=== PATIENT | male | born 1990 | race Caucasian/White ===

== ENCOUNTER → 2020-09-12 09:33 | Outpatient (BNVA) | payer OTHER, SELFPAY | PROVIDERS: PCP Physician Assistant; Visit Provider Surgery | DX: Z43.1 Encounter for attention to gastrostomy (principal); G82.50 Quadriplegia, unspecified | CPT/HCPCS: 43762; 43763; 99213 ==

== ENCOUNTER → 2020-10-27 14:09 | Outpatient (BNV) | payer OTHER, SELFPAY | PROVIDERS: PCP Physician Assistant; Visit Provider Internal Medicine | DX: D75.1 Secondary polycythemia (principal); Z86.711 Personal history of pulmonary embolism; Z79.01 Long term (current) use of anticoagulants | CPT/HCPCS: 99213; 99214 ==

== ENCOUNTER → 2020-10-30 12:52 | Outpatient (BNVA) | payer OTHER, SELFPAY | PROVIDERS: PCP Physician Assistant; Visit Provider Internal Medicine Pulmonary Disease | DX: D75.1 Secondary polycythemia (principal); R09.02 Hypoxemia; S06.9X0S Unspecified intracranial injury without loss of consciousness, sequela; V89.2XXS Person injured in unspecified motor-vehicle accident, traffic, sequela; Z87.891 Personal history of nicotine dependence | CPT/HCPCS: 99202 ==

== ENCOUNTER → 2020-12-01 13:07 | Outpatient (REF) | payer OTHER, SELFPAY ==
--- NOTE | 2020-12-01 13:10 | CA_ITS ---
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 Technically difficult study to interpret due to off axis views 2. Normal LV systolic and diastolic function 3. Normal cardiac valvular Doppler 4. Normal RV systolic pressure 5. No pericardial effusion Findings Left Ventricle Normal left ventricular size, thickness, and systolic function. The visually estimated ejection fraction is between 55-60%. Spectral Doppler is indicative of a normal filling pattern. Right Ventricle Normal right ventricular cavity size. Atria The left atrium is normal in size. Interatrial shunt cannot be excluded. The right atrium was not well visualized. Aortic Valve The aortic valve was not well visualized. There is no aortic valve stenosis. There is no aortic valve regurgitation. Mitral Valve Likely normal mitral valve structure and function. There is trace mitral valve regurgitation. There is no mitral valve stenosis. Pulmonic Valve The pulmonic valve was not well visualized. Tricuspid Valve Likely normal tricuspid valve structure and function. There is trace tricuspid valve regurgitation. The right ventricular systolic pressure is normal. The right ventricular systolic pressure is 21 mmHg. There is no evidence of pulmonary hypertension. Great Vessels All visible segments of the aorta are normal in size. The pulmonary artery was not well visualized. Venous The inferior vena cava was not well visualized. Pericardium/Pleural There is no evidence of pericardial effusion. Prior Study Comparison No prior study available for comparison. Measurements 2D Linear Measurements IVSd: 1.07 0.6-0.9/0.6-1.0 cm LVIDd: 4.44 3.9-5.3/4.2-5.9 cm LVIDd Index: 2.20 2.4-3.2/2.2-3.1 cm/m2 LVIDs: 3.20 2.0-3.6 cm LVPWd: 1.10 0.7-1.1 cm Ao Root: 3.40 2.1-3.5 cm LA Diam: 3.30 2.7-3.8/3.0-4.0 cm LAIDs Index: 1.63 1.5-2.3 cm/m2 LV Mass: 209.33 67-162/88-224 g LV Mass Index: 103.63 43-95/49-115 g/m2 LVOT Diam: 2.50 3.0+(-)1.3 cm 2D Systolic Function EF 4C: 55.80 >55% EF 2C: 51.00 >55% EF BiP: 56.50 >55% Mitral Valve MV Pk E: 0.57 MV PK A: 0.37 MV Decel Time: 127.00 E/A: 1.50 E'Lateral: 7.54 E'Medial: 4.35 E/E' Med: 13.10 E/E' Lat: 7.60 PHT: 37.00 MVA PHT: 5.95 Decel Mcdonald: 4.52 Aortic Valve AoV Pk Isaias: 0.85 AoV Mn Isaias: 0.56 AoV VTI: 0.19 AoV Pk Grad: 3.00 Aov Mn Grad: 2.00 ALVA Cont.VTI: 2.93 LVOT LVOT Pk Isaias: 0.56 LVOT Mn Isaias: 0.37 LVOT VTI: 0.11 LVOT Pk Grad: 1.00 LVOT Mn Grad: 1.00 LVOT Diam: 2.50 LVOT Area: 4.91 Diastolic Function MV Pk E: 0.57 MV Pk A: 0.37 E/A: 1.50 E'Medial: 4.35 E/E' Med: 13.10 E' Laterial: 7.54 E/E' Lat: 7.60 Tricuspid Valve TR Pk Isaias: 2.10 TR Pk Grad: 18.00 RA Press: 3.00 RVSP: 21.00 Great Vessels Aorta Ao Root-2D: 3.40 2.0-3.7 cm Ao Asc: 3.30 2.1-3.4 cm Pulmonary Valve PV Pk Isaias: 0.87 Peak PV Grad: 3.00 Updated in Other Vendor System with Status of Final Kev Murphy MD electronically signed on 12/01/2020 6:06:06 PM with status of Final
--- NOTE | 2020-12-01 13:58 | XR_ITS ---
EXAMINATION: XR CHEST CLINICAL INFORMATION: Difficulty breathing. COMPARISON: None TECHNIQUE: 2 views of the chest were obtained. FINDINGS: The lungs are in moderate inspiration with increased bilateral parahilar markings and lingular atelectasis. Visualized bones and soft tissues are normal. XR/XR chest 2V IMPRESSION: Increased bilateral parahilar interstitial markings likely interstitial pneumonitis. There is lingular atelectasis.
--- NOTE | 2020-12-01 13:58 | NM_ITS ---
EXAMINATION: PULMONARY QUANTITATIVE PERFUSION STUDY CLINICAL INFORMATION: Secondary polycythemia.. COMPARISON: No previous lung scan is available for comparison. Radiographs of the chest dated 12/01/2020, the same date as this lung scan, are available for comparison.. TECHNIQUE: Following the intravenous injection of 4.0 mCi Tc-99m MAA intravenously an 8-view perfusion study was performed. Differential counts were obtained from the anterior and posterior views, and a combined image using the geometric mean was generated. The percentage relative activity of each lung as well as the relative activity within the upper, mid and lower lung parsons are was calculated. FINDINGS: No segmental perfusion defects are present. There is homogeneous distribution of activity in both lungs with no focal or anatomic appearing perfusion defects present.. In addition to calculating the relative percentage in each lung on the geometric mean of the anterior and posterior perfusion images, the relative activity in the upper, mid, and lower lung parsons was determined using horizontal lines these lung parsons approximately equally. On the perfusion images, the total activity is: Left lung 49% and right lung 51%. LEFT: Upper lung field 13%. Mid lung field 24%. Lower lung field 12% RIGHT: Upper lung field 14%. Mid lung field 28% Lower lung field 9%. NM/NM pul perf carlos dif w image IMPRESSION: Normal radionuclide perfusion scan. Quantitation is as above.
== END ==
LOC: HO.CARD 13:07
PROVIDERS: PCP Physician Assistant; Visit Provider Internal Medicine Pulmonary Disease
DX: D75.1 Secondary polycythemia (principal); R06.00 Dyspnea, unspecified
CPT/HCPCS: 71046; 78597; 93306; A9540

== ENCOUNTER → 2020-12-05 10:09 | Outpatient (BNVA) | payer OTHER, SELFPAY | PROVIDERS: PCP Physician Assistant; Referring Provider Physician Assistant; Visit Provider Surgery | DX: K94.23 Gastrostomy malfunction (principal) | CPT/HCPCS: 43762; 99212 ==

== ENCOUNTER → 2020-12-09 14:57 | Outpatient (BNVA) | payer OTHER, SELFPAY | PROVIDERS: PCP Physician Assistant; Visit Provider Internal Medicine Pulmonary Disease | DX: D75.1 Secondary polycythemia (principal) | CPT/HCPCS: 99212 ==

== ENCOUNTER → 2021-03-03 10:46 | Outpatient (BNVA) | payer OTHER, SELFPAY | PROVIDERS: PCP Physician Assistant; Visit Provider Surgery | DX: K94.23 Gastrostomy malfunction (principal) | CPT/HCPCS: 43762; 99212 ==

== ENCOUNTER → 2021-06-05 14:57 | Outpatient (BNVA) | payer OTHER, SELFPAY | PROVIDERS: PCP Physician Assistant; Visit Provider Surgery | DX: K94.23 Gastrostomy malfunction (principal) | CPT/HCPCS: 43762; 99212 ==

== ENCOUNTER → 2021-09-04 14:48 | Outpatient (BNVA) | payer OTHER, SELFPAY | PROVIDERS: PCP Physician Assistant; Visit Provider Internal Medicine Pulmonary Disease | DX: R06.83 Snoring (principal); R09.89 Other specified symptoms and signs involving the circulatory and respiratory systems | CPT/HCPCS: 99212 ==

== ENCOUNTER → 2021-10-06 15:22 | Outpatient (REF) | payer OTHER, SELFPAY | LOC: HO.SL 15:22 | PROVIDERS: PCP Physician Assistant; Visit Provider Internal Medicine Pulmonary Disease | DX: R06.83 Snoring (principal) | CPT/HCPCS: 95806 ==

== ENCOUNTER → 2021-10-30 10:54 | Outpatient (BNVA) | payer OTHER, SELFPAY | PROVIDERS: PCP Physician Assistant; Referring Provider Physician Assistant; Visit Provider Surgery | DX: K94.23 Gastrostomy malfunction (principal) | CPT/HCPCS: 43762; 99212 ==

== ENCOUNTER → 2021-11-05 14:18 | Outpatient (BNVA) | payer OTHER, SELFPAY | PROVIDERS: PCP Physician Assistant; Visit Provider Internal Medicine Pulmonary Disease | DX: G47.33 Obstructive sleep apnea (adult) (pediatric) (principal) | CPT/HCPCS: 99212 ==

== ENCOUNTER → 2022-01-28 11:34 | Outpatient (BNVA) | payer OTHER, SELFPAY | PROVIDERS: PCP Physician Assistant; Visit Provider Surgery | DX: K94.23 Gastrostomy malfunction (principal) | CPT/HCPCS: 43762; 99212 ==

== ENCOUNTER → 2022-04-27 14:37 | Outpatient (BNVA) | payer OTHER, SELFPAY | PROVIDERS: PCP Physician Assistant; Visit Provider Internal Medicine Pulmonary Disease | DX: G47.33 Obstructive sleep apnea (adult) (pediatric) (principal) | CPT/HCPCS: 99212 ==

== ENCOUNTER → 2022-04-30 11:23 | Outpatient (BNVA) | payer OTHER, SELFPAY | PROVIDERS: PCP Physician Assistant; Referring Provider Physician Assistant; Visit Provider Surgery | DX: K94.23 Gastrostomy malfunction (principal) | CPT/HCPCS: 43762; 99212 ==

== ENCOUNTER → 2022-08-17 15:41 | Outpatient (BNVA) | payer OTHER, SELFPAY | PROVIDERS: PCP Physician Assistant; Visit Provider Surgery | DX: K94.23 Gastrostomy malfunction (principal) | CPT/HCPCS: 43762; 99212 ==

== ENCOUNTER → 2022-11-04 14:55 | Outpatient (BNVA) | payer OTHER, SELFPAY | PROVIDERS: PCP Physician Assistant; Referring Provider Physician Assistant; Visit Provider Surgery | DX: K94.23 Gastrostomy malfunction (principal); G82.50 Quadriplegia, unspecified | CPT/HCPCS: 43762; 99212 ==

== ENCOUNTER → 2023-02-03 15:03 | Outpatient (BNVA) | payer OTHER, SELFPAY | PROVIDERS: PCP Physician Assistant; Visit Provider Surgery | DX: K94.23 Gastrostomy malfunction (principal) | CPT/HCPCS: 43762; 99212 ==

== ENCOUNTER → 2023-04-28 14:36 | Outpatient (BNVA) | payer OTHER, SELFPAY | PROVIDERS: PCP Physician Assistant; Visit Provider Surgery | DX: K94.23 Gastrostomy malfunction (principal) | CPT/HCPCS: 43762; 99212 ==

== ENCOUNTER 2023-07-28 15:08 | Outpatient (AMB) | payer OTHER, SELFPAY ==
[2023-07-28 15:18] VITALS: BP 136/84; PULSE 80; BMI 34.0
--- NOTE | 2023-07-28 15:18 | MHC.OFFVIS ---
Intake Vital Signs 07/28/23 15:18 Height 5 ft 9 in Weight 230 lb BMI 34.0 BP 136/84 Blood Pressure Location Lt brachial Position Sitting Pulse 80 Intake Visit Reasons: G-tube change 18F Intake Note: Patient here for G-tube change. [employer] Utility Supervisor Required: No Accompanied by: siblings Allergies latex [LATEX] Allergy (Intermediate, Verified 07/28/23 15:28) HIVES strawberry [STRAWBERRY] Allergy (Intermediate, Verified 07/28/23 15:28) HIVES Medication List - Last Reconciled 08/01/23 by Souleymane Roberts MD [adult diapers As directed] albuterol sulfate 2.5 mg (3 mL) inhalation .4 times a day PRN 90 days amantadine HCl 200 mg (20 mL) PO BID 30 days azithromycin For 250 mg dose pack: take 500 mg today (day 1), then 250 mg for 4 days (days 2-5) PO disposable gloves As directed [incontinence wipes As directed] ketoconazole 2% 1 appl topical DAILY 15 days lactose-reduced food with fibr 0.07 gram-1.5 kcal/mL (Isosource 1.5 Matthew) 1 ea feeding tube DAILY 30 days levetiracetam 750 mg PO DAILY PRN methylphenidate HCl 1 mg PO BID miscellaneous medical supply 1 ea miscellaneous .PRN 99 days miscellaneous medical supply 1 ea miscellaneous BID 30 days miscellaneous medical supply 1 ea miscellaneous QID 30 days miscellaneous medical supply 1 ea miscellaneous DAILY 99 days miscellaneous medical supply 1 ea miscellaneous .nightly 90 days miscellaneous medical supply 1 ea miscellaneous QID 30 days nebulizer and compressor (Portable Nebulizer System) As directed rivaroxaban (Xarelto) 10 mg PO DAILY 90 days underpads (Goodnites Bed Mats) As directed HPI HPI Comments History of Present Illness Details Kike Matson returns to the office for G-tube change.? The tube is been functioning well with no apparent skin changes. No leakage is been identified. [facility] Medical History Neurogenic bladder Asthma Quadriparesis TBI (traumatic brain injury) History of pulmonary embolism Surgical History History of gastrostomy (06/02/20) History of throat surgery (02/2019) History of brain surgery Family History Mother Interstitial lung disease Social History Household Members: Family Housing: House Alcohol intake: never Patient Tobacco Use Status: Former Tobacco user e-Cigarette/Vaping Use: Never Used Second Hand Smoke Exposure: Yes service: No Current occupational status: disabled Cognitive needs: No Hearing needs: No Vision needs: No Review of Systems Const Unobtainable due to mental status Physical Exam Vital Signs: Last Vital Signs Pulse 80 07/28/23 15:18 BP 136/84 07/28/23 15:18 BMI result Body Mass Index 34.0 Resp Other: breathing comfortably on room air GI Other: soft, nondistended, nontender, gastrostomy tube in the left upper quadrant. No granulation tissue noted surrounding the tube, the surrounding skin is clean and intact. Inspection: Yes G-tube present Skin Other: Warm and dry, no rash Neuro Other: quadriplegia Extrem Other: quadriplegia General: Yes normal to inspection Office Procedures Office Procedure Misc Details: Preoperative diagnosis: Gastrostomy tube in place, quadriplegia Postoperative diagnosis: Same Procedure: Gastrostomy tube change Surgeon: Souleymane Roberts MD Bottom Liquor Attendant: None Anesthesia: None Indications for procedure: 33-year-old male patient with a longstanding gastrostomy tube returning for gastrostomy tube change. Patient has a prior history of tube dysfunction. Operative findings: Gastrostomy tube easily replaced. Specimen: None Estimated blood loss: None Complications: None Procedure details: Patient was placed in a sitting position. The previously placed 18 Niuean gastrostomy feeding tube was removed after deflating the balloon. Approximately 6 mL of balloon fluid was aspirated. A new 18 Niuean gastrostomy tube was replaced and easily inserted through the gastrostomy site. Gastric contents in tube feeds were medially evacuated from the tube confirming proper location of the tube. Balloon was inflated with 10 mL of saline solution. Sterile dressings were then applied. The patient tolerated the procedure well and was discharged to home in stable condition. Office Procedure Billing Code: AMB Procedure Billing Code (58097) Assessment & Plan Assessment & Plan (1) Malfunction of gastrostomy tube: Code(s): K94.23 - Gastrostomy malfunction Plan: Patient returns for G-tube placement. The previous G-tube was removed after deflating the balloon and a new 18 Niuean nell G-tube was reinserted immediately. The tube was easily inserted and the balloon inflated with 10 cc of sterile water. Sterile dressings were then applied. The patient tolerated the procedure well and was discharged to home in stable condition. He will follow up in 3 months for tube change. Coding Level of Care Code Procedure Only Diagnoses Malfunction of gastrostomy tube K94.23 CPT Codes Office Procedure - Office Procedure Billing Code: AMB Procedure Billing Code ([id number])
== END 2023-07-28 15:30 | disposition home or self-care (01) ==
PROVIDERS: PCP Physician Assistant; Visit Provider Surgery
DX: K94.23 Gastrostomy malfunction (principal)
CPT/HCPCS: 43762

== ENCOUNTER → 2023-07-28 15:08 | Outpatient (BNVA) | payer OTHER, SELFPAY | PROVIDERS: PCP Physician Assistant; Visit Provider Surgery | DX: K94.23 Gastrostomy malfunction (principal) | CPT/HCPCS: 43762 ==

== ENCOUNTER 2023-09-07 15:25 | Outpatient (AMB) | payer OTHER, SELFPAY ==
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
[2023-09-07 15:33] VITALS: BP 130/80; PULSE 82; O2SAT 98
== END 2023-09-07 16:08 | disposition home or self-care (01) ==
PROVIDERS: Visit Provider Physician Assistant
DX: Z23 Encounter for immunization (principal)
CPT/HCPCS: 90471; 90686; 99395

== ENCOUNTER 2023-09-07 16:17 | Outpatient (REF) | payer OTHER, SELFPAY ==
[2023-09-07 17:08] LABS: Hematocrit 51.4 % (42.0-52.0); Mean Corpuscular HGB Conc 33.1 g/dl (31.0-36.0); Mean Corpuscular Hemoglobin 32.9 pg (27.0-33.0); Mean Corpuscular Volume 99.6 fL (80.0-98.0); Mean Platelet Volume 12.6 fL (9.4-12.4); Platelet Count 163 X10*3/uL (160-400); Red Blood Count 5.16 X10*6/uL (4.60-5.80); Red Cell Distribution Width 12.2 % (11.0-16.0)
[2023-09-07 17:28] LABS: Alanine Aminotransferase 34 U/L (0-40); Albumin Level 4.1 g/dL (3.5-5.0); Alkaline Phosphatase 97 U/L (39-117); Anion Gap 15 (12-20); Aspartate Amino Transferase 27 U/L (5-37); Bilirubin Total 0.5 mg/dL (0.0-1.0); Blood Urea Nitrogen 10 mg/dL (9-16); Calcium 9.7 mg/dL (8.4-10.2); Carbon Dioxide 28 mmol/L (22-29); Chloride 102 mmol/L (96-108); Estimated Glomerular Filt Rate > 60; Glucose Random 86 mg/dL (60-115); Potassium 3.9 mmol/L (3.3-5.1); Sodium 141 mmol/L (135-145); Total Protein 7.4 g/dL (6.5-8.0)
== END 2023-09-07 16:18 | disposition home or self-care (01) ==
LOC: HO.LAB 16:17
PROVIDERS: PCP Physician Assistant; Visit Provider Physician Assistant
DX: D75.1 Secondary polycythemia (principal); R74.8 Abnormal levels of other serum enzymes; Z13.1 Encounter for screening for diabetes mellitus
CPT/HCPCS: 36415; 80053; 85027

== ENCOUNTER 2023-10-27 15:16 | Outpatient (AMB) | payer OTHER, SELFPAY ==
--- NOTE | 2023-10-27 15:23 | A.OFFVIS_ITS ---
Intake Vital Signs 10/27/23 15:30 Height 5 ft 9 in Weight 229 lb 4.492 oz BMI 33.9 BP not taken reason Medical Reason Intake Visit Reasons: 3 mth follow up -G-tube change 18F Intake Note: Patient is seen in office for office procedure, G tube change 18 F. Pt c/o: no changes since last visit Child Support Agent Required: No Accompanied by: Family/Other Allergies latex [LATEX] Allergy (Intermediate, Verified 10/27/23 15:31) HIVES strawberry [STRAWBERRY] Allergy (Intermediate, Verified 10/27/23 15:31) HIVES Medication List - Last Reconciled 10/27/23 by Souleymane Roberts MD [adult diapers As directed] albuterol sulfate 2.5 mg (3 mL) inhalation .4 times a day PRN 90 days amantadine HCl 200 mg (20 mL) PO BID 30 days azithromycin 500 mg PO DAILY 10 days disposable gloves As directed [incontinence wipes As directed] ketoconazole 2% 1 appl topical DAILY 15 days lactose-reduced food with fibr 0.07 gram-1.5 kcal/mL (Isosource 1.5 Matthew) 1 ea feeding tube DAILY 30 days levetiracetam 750 mg PO DAILY PRN methylphenidate HCl 1 mg PO BID miscellaneous medical supply 1 ea miscellaneous .PRN 99 days miscellaneous medical supply 1 ea miscellaneous BID 30 days miscellaneous medical supply 1 ea miscellaneous QID 30 days miscellaneous medical supply 1 ea miscellaneous DAILY 99 days miscellaneous medical supply 1 ea miscellaneous .nightly 90 days miscellaneous medical supply 1 ea miscellaneous QID 30 days nebulizer and compressor (Portable Nebulizer System) As directed Portable Suction Machine w/tubing,canister&filter (Suction machine w/tubing, canister and filter) As directed rivaroxaban (Xarelto) 10 mg PO DAILY 90 days underpads (Goodnites Bed Mats) As directed HPI HPI Comments History of Present Illness Details Kike Matson returns to the office for G-tube change.? The tube is been functioning well with no apparent skin changes. No leakage is been identified. [facility] Medical History Neurogenic bladder Asthma Quadriparesis TBI (traumatic brain injury) History of pulmonary embolism Surgical History History of gastrostomy (06/02/20) History of throat surgery (02/2019) History of brain surgery Family History Mother Interstitial lung disease Father Esophageal cancer DMII (diabetes mellitus, type 2) Social History Household Members: Family Housing: House Alcohol intake: never Patient Tobacco Use Status: Former Tobacco user e-Cigarette/Vaping Use: Never Used Second Hand Smoke Exposure: Yes service: No Current occupational status: disabled Cognitive needs: No Hearing needs: No Vision needs: No Review of Systems Const Unobtainable due to mental condition Physical Exam Vital Signs: BMI result Body Mass Index 33.9 Resp Other: breathing comfortably on room air GI Other: soft, nondistended, nontender, gastrostomy tube in the left upper quadrant. No granulation tissue noted surrounding the tube, the surrounding skin is clean and intact. The previous G-tube was removed and a new 18 Lithuanian gastrostomy tube inserted immediately. A balloon was filled with 10 mL of saline solution. Sterile dressings were then applied. The patient tolerated the G-tube Inspection: Yes G-tube present Skin Other: Warm and dry, no rash Neuro Other: quadriplegia Extrem Other: quadriplegia General: Yes normal to inspection Assessment & Plan Assessment & Plan (1) Malfunction of gastrostomy tube: Code(s): K94.23 - Gastrostomy malfunction Plan: Patient returns for G-tube placement. The previous G-tube was removed after deflating the balloon and a new 18 Lithuanian nell G-tube was reinserted immediately. The tube was easily inserted and the balloon inflated with 10 cc of sterile water. Sterile dressings were then applied. The patient tolerated the procedure well and was discharged to home in stable condition. He will follow up in 3 months for tube change. Coding Level of Care Code Est Pt Level 3 (40360) Diagnoses Malfunction of gastrostomy tube K94.23
[2023-10-27 15:30] VITALS: BMI 33.9
== END 2023-10-27 15:33 | disposition home or self-care (01) ==
PROVIDERS: PCP Physician Assistant; Visit Provider Surgery
DX: K94.23 Gastrostomy malfunction (principal)
CPT/HCPCS: 43762

== ENCOUNTER → 2023-10-27 15:16 | Outpatient (BNVA) | payer OTHER, SELFPAY | PROVIDERS: PCP Physician Assistant; Visit Provider Surgery | DX: K94.23 Gastrostomy malfunction (principal); Z96.89 Presence of other specified functional implants | CPT/HCPCS: 43762 ==

== ENCOUNTER 2024-01-23 10:18 | Outpatient (AMB) | payer OTHER, SELFPAY ==
[2024-01-23 10:28] VITALS: BP 132/90; PULSE 65; O2SAT 97
--- NOTE | 2024-01-23 10:28 | A.OFFPC_ITS ---
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 Accompanied by: Family/Other Allergies latex [LATEX] Allergy (Intermediate, Verified 01/23/24 10:37) HIVES strawberry [STRAWBERRY] Allergy (Intermediate, Verified 01/23/24 10:37) HIVES Medication List - Last Reconciled 01/23/24 by Martir Espino PA-C [adult diapers As directed] albuterol sulfate 2.5 mg (3 mL) inhalation .4 times a day PRN 90 days amantadine HCl 200 mg (20 mL) PO BID 30 days azithromycin 500 mg PO DAILY 10 days disposable gloves As directed [incontinence wipes As directed] ketoconazole 2% 1 appl topical DAILY 15 days lactose-reduced food with fibr 0.07 gram-1.5 kcal/mL (Isosource 1.5 Matthew) 1 ea feeding tube DAILY 30 days levetiracetam 750 mg PO DAILY PRN methylphenidate HCl 1 mg PO BID miscellaneous medical supply 1 ea miscellaneous .PRN 99 days miscellaneous medical supply 1 ea miscellaneous BID 30 days miscellaneous medical supply 1 ea miscellaneous QID 30 days miscellaneous medical supply 1 ea miscellaneous DAILY 99 days miscellaneous medical supply 1 ea miscellaneous .nightly 90 days miscellaneous medical supply 1 ea miscellaneous QID 30 days nebulizer and compressor (Portable Nebulizer System) As directed Portable Suction Machine w/tubing,canister&filter (Suction machine w/tubing, canister and filter) As directed rivaroxaban (Xarelto) 10 mg PO DAILY 90 days underpads (Goodnites Bed Mats) As directed Tobacco use date assessed: 09/07/23 HPI Valle, seizure, pnemonia HPI Details Kike is a 33-year-old male here today for a hospital discharge follow-up. ? 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 Recently admitted to [facility] for a witnessed grand mal seizure in the setting of an upper respiratory infection and hypoglycemia. CT of head was not concerning. He did receive Keppra load while in the hospital a [address] of chest did show an infiltrate in the right lung. Unclear etiology to patient's infection though seems to started upper respiratory secretions. Currently doing well and now home. [facility] Medical History Neurogenic bladder Asthma Quadriparesis TBI (traumatic brain injury) History of pulmonary embolism Surgical History History of gastrostomy (06/02/20) History of throat surgery (02/2019) History of brain surgery Family History Mother Interstitial lung disease Father Esophageal cancer DMII (diabetes mellitus, type 2) Social History Household Members: Family Housing: House Alcohol intake: never Patient Tobacco Use Status: Former Tobacco user e-Cigarette/Vaping Use: Never Used Second Hand Smoke Exposure: Yes service: No Current occupational status: disabled Cognitive needs: No Hearing needs: No Vision needs: No Questionnaire PHQ-9 Over the last 2 weeks, how often have you been bothered by any of the following problems? 1. Little interest or pleasure in doing things: not at all 2. Feeling down, depressed, or hopeless: not at all 3. Trouble falling or staying asleep, or sleeping too much: not at all 4. Feeling tired or having little energy: not at all 5. Poor appetite or overeating: not at all 6. Feeling bad about yourself - or that you are a failure or have let yourself or your family down: not at all 7. Trouble concentrating on things, such as reading the newspaper or watching television: not at all 8. Moving or speaking so slowly that other people could have noticed. Or the opposite - being so fidgety or restless that you have been moving around a lot more than usual: not at all 9. Thoughts that you would be better off or of hurting yourself in some way: not at all Total score: 0 Depression Screening Interpretation: Negative Depression Screening Done: Yes [id number] - PHQ-9 Billing: Yes Source: Developed by Drs. Josué Amin, Lala Bah, Delio Samuel and colleagues, with an educational eduin from [employer]. Thrive Questionnaire Date Thrive assessed: 01/23/24 I am a: Parent/Caregiver What is your living situation today?: I have a steady place to live Within the past 12 months, did the food you bought not last and you didn't have the money to get more?: Never true Within the past 12 months, did you worry whether your food would run out before you got money to buy more?: Never true Do you have trouble paying for medicines?: No Do you have trouble getting transportation to medical appointments?: No Do you have trouble paying your heating and electricity bill?: No Do you have trouble taking care of your child, family member or friend?: No Do you have trouble with day-to-day activities such as bathing, preparing meals, shopping, managing finances, etc.?: No Are you currently unemployed and looking for a job?: No Are you interested in more education?: No Please select the resources that you would like help with: None Currently or been in a relationship where the following occur: no concerns reported THRIVE Score: 0 OMAR-7 AMB Questionnaire OMAR-7 Date OMAR - 7 assessed: 02/17/22 Source: Developed by Drs. Josué Amin, Lala Bah, Delio Samuel and colleagues, with an educational eduin from [employer]. Review of Systems Const Denies headache(s) Eyes Denies loss of vision ENT Denies vertigo, Denies dizziness, Denies headache(s) and Denies sore throat Card Denies chest pain, Denies leg edema and Denies lightheadedness Resp Denies cough, Denies hemoptysis and Denies wheezing GI Denies abdominal pain, Denies melena, Denies constipation, Denies diarrhea and Denies vomiting Denies dysuria, Denies urinary frequency and Denies urinary urgency Musc Denies arthralgias, Denies joint swelling, Denies numbness and Denies tingling Neuro Denies Abnormal speech present, Denies behavioral changes, Denies vertigo, Denies dizziness, Denies headache(s), Denies loss of vision, Denies memory loss, Denies numbness and Denies tingling Psych Denies anxiety, Denies behavioral changes, Denies depression, Denies memory loss and Denies panic attacks Caio/Lymph Denies easy bleeding and Denies easy bruising Aller/Immun Denies wheezing Physical exam (Primary Care) Vital Signs: Last Vital Signs Pulse 65 01/23/24 10:28 BP 132/90 H 01/23/24 10:28 Pulse Ox 97 01/23/24 10:28 Oxygen Delivery Method Room Air 01/23/24 10:28 Tobacco/Smoking Status: Tobacco use Status Tobacco use date assessed 09/07/23 01/23/24 10:30 Patient Tobacco Use Status Former Tobacco user 01/23/24 10:30 e-Cigarette/Vaping Use Never Used 01/23/24 10:30 PHQ-9: PHQ-9 Score PHQ-9: Total score 0 01/23/24 10:36 Depression Screening Interpretation: Negative Thrive Assessment: Date of Thrive Assessment Date Thrive assessed 02/17/22 01/23/24 10:30 Currently or been in a relationship where the following occur: no concerns reported Const General: healthy appearing, no acute distress, alert and awake Nutritional Appearance: well nourished Orientation/consciousness: oriented to person, oriented to place and oriented to time HENMT Ears: TM's normal bilaterally General nose exam: Normal nasal mucous membranes and turbinates present Eyes Conjunctivae: conjunctivae normal Sclerae: sclerae normal Pupils: Equal, round and reactive pupils present Neck Neck: Yes no lymphadenopathy and Yes no JVD Thyroid: Thyroid normal Carotids: no bruits Resp Other: NOTED UPPER RESPIRATORY GURGLING Effort & Inspection: normal respiratory effort and not tachypneic Auscultation: no crackles, no rales, no rhonchi and no wheezes Cardio Rate: regular rate Rhythm: regular rhythm Heart sounds: no murmurs and normal S1 and S2 GI Palpation (GI): Soft to palpation, nontender, no hepatomegaly and no splenomegaly Auscultation: normal bowel sounds Skin General skin exam: no rashes or lesions noted and dry skin Neuro General: oriented to person, oriented to place and oriented to time Cranial nerves: Yes Equal, round and reactive pupils present Speech: No Abnormal speech present Gait exam (Neuro): Normal gait present Motor exam (neuro): no tremor noted Extrem Right upper extremity: full ROM Left upper extremity: full ROM Right lower extremity: full ROM; no edema Left lower extremity: full ROM; no edema Psych Mental Status: mental status grossly normal Speech and movement: Normal speech and movement present Affect: normal affect Attitude: cooperative Thought process: Normal thought process present Assessment and Plan Assessment & Plan (1) Hospital discharge follow-up: Code(s): Z09 - Encounter for follow-up examination after completed treatment for conditions other than malignant neoplasm (2) Aspiration pneumonia: Code(s): J69.0 - Pneumonitis due to inhalation of food and vomit Qualifiers: Laterality: right Lung location: lower lobe of lung Aspiration p neumonia type: unspecified Qualified Code(s): J69.0 - Pneumonitis due to inhalation of food and vomit (3) Seizure disorder: Code(s): G40.909 - Epilepsy, unspecified, not intractable, without status epilepticus Plan: Had a seizure while at home in the setting of upper respiratory infection. He did get low-dose of Keppra 1000 mg while hospital. Also found have hypoglycemia. Since discharge no further seizure episodes. Patient will follow-up with his neurologist. His Keppra was return back to his home dose of 750 mg Orders: Orders Levetiracetam Keppra Today S06.9X9D - Unspecified intracranial injury with loss of consciousness of unspecified duration, subsequent encounter Basic Metabolic Panel Today Z13.1 - Encounter for screening for diabetes mellitus Complete Blood Count no Diff Today D75.1 - Secondary polycythemia Coding Level of Care Code Est Pt Level 4 (61515) Diagnoses Hospital discharge follow-up Z09 Aspiration pneumonia of right lower lobe, unspecified aspiration pneumonia type J69.0 Laterality: right Lung location: lower lobe of lung Aspiration pneumonia type: unspecified Seizure disorder G40.909
== END 2024-01-23 10:59 | disposition home or self-care (01) ==
PROVIDERS: PCP Physician Assistant; Visit Provider Physician Assistant
DX: Z09 Encounter for follow-up examination after completed treatment for conditions other than malignant neoplasm (principal); J69.0 Pneumonitis due to inhalation of food and vomit; G40.909 Epilepsy, unspecified, not intractable, without status epilepticus
CPT/HCPCS: 99214

== ENCOUNTER 2024-01-26 15:23 | Outpatient (AMB) | payer OTHER, SELFPAY ==
--- NOTE | 2024-01-26 15:25 | A.OFFVIS_ITS ---
Intake Vital Signs 01/26/24 15:35 Height 5 ft 9 in Weight 229 lb 4.492 oz BMI 33.9 BP not taken reason Medical Reason Intake Visit Reasons: 3 mth follow up -G-tube change 18F Intake Note: Patient is seen in office for office procedure, G tube change 18 F. Pt c/o: here for tube change, was hospitalized for almost a week due to pneumonia and was on antbx is better now. Resident In Diagnostic Radiology Required: No Accompanied by: Family/Other Allergies latex [LATEX] Allergy (Intermediate, Verified 01/26/24 15:37) HIVES strawberry [STRAWBERRY] Allergy (Intermediate, Verified 01/26/24 15:37) HIVES HPI HPI Comments History of Present Illness Details Kike Matson returns to the office for G-tube change.? The tube is been functioning well with no apparent skin changes. No leakage is been identified. He was recently hospitalized for pneumonia, felt to be due to his oral secretions. He is improved today. [facility] Medical History Neurogenic bladder Asthma Quadriparesis TBI (traumatic brain injury) History of pulmonary embolism Surgical History History of gastrostomy (06/02/20) History of throat surgery (02/2019) History of brain surgery Family History Mother Interstitial lung disease Father Esophageal cancer DMII (diabetes mellitus, type 2) Social History Household Members: Family Housing: House Alcohol intake: never Patient Tobacco Use Status: Former Tobacco user e-Cigarette/Vaping Use: Never Used Second Hand Smoke Exposure: Yes service: No Current occupational status: disabled Cognitive needs: No Hearing needs: No Vision needs: No Review of Systems Const Unobtainable due to mental condition Physical Exam Vital Signs: BMI result Body Mass Index 33.9 Resp Other: breathing comfortably on room air GI Other: soft, nondistended, nontender, gastrostomy tube in the left upper quadrant. No granulation tissue noted surrounding the tube, the surrounding skin is clean and intact. The previous G-tube was removed and a new 18 Lao gastrostomy tube inserted immediately. A balloon was filled with 10 mL of saline solution. Sterile dressings were then applied. The patient tolerated the G-tube Inspection: Yes G-tube present Skin Other: Warm and dry, no rash Neuro Other: quadriplegia Extrem Other: quadriplegia General: Yes normal to inspection Assessment & Plan Assessment & Plan (1) Malfunction of gastrostomy tube: Code(s): K94.23 - Gastrostomy malfunction Plan: Patient returns for G-tube placement. The previous G-tube was removed after deflating the balloon and a new 18 Lao nell G-tube was reinserted immediately. The tube was easily inserted and the balloon inflated with 10 cc of sterile water. Sterile dressings were then applied. The patient tolerated the procedure well and was discharged to home in stable condition. He will follow up in 3 months for tube change. Coding Level of Care Code Est Pt Level 3 (93518) Diagnoses Malfunction of gastrostomy tube K94.23
[2024-01-26 15:35] VITALS: BMI 33.9
== END 2024-01-26 15:37 | disposition home or self-care (01) ==
PROVIDERS: PCP Physician Assistant; Visit Provider Surgery
DX: Z46.59 Encounter for fitting and adjustment of other gastrointestinal appliance and device (principal)
CPT/HCPCS: 43762; 99213

== ENCOUNTER → 2024-01-26 15:23 | Outpatient (BNVA) | payer OTHER, SELFPAY | PROVIDERS: PCP Physician Assistant; Visit Provider Surgery | DX: K94.23 Gastrostomy malfunction (principal) | CPT/HCPCS: 43762; 99212 ==

== ENCOUNTER 2024-02-01 14:46 | Outpatient (REF) | payer OTHER, SELFPAY ==
[2024-02-01 15:35] LABS: Hemoglobin 16.7 g/dl (14.0-18.0); Mean Corpuscular HGB Conc 34.1 g/dl (31.0-36.0); Mean Corpuscular Hemoglobin 33.7 pg (27.0-33.0); Mean Platelet Volume 11.8 fL (9.4-12.4); Platelet Count 269 X10*3/uL (160-400); Red Blood Count 4.95 X10*6/uL (4.60-5.80); Red Cell Distribution Width 14.6 % (11.0-16.0); White Blood Count 4.4 X10*3/uL (4.8-10.8)
[2024-02-01 15:38] LABS: Prothrombin Time 11.8 SEC (11.1-13.3)
[2024-02-01 16:07] LABS: Ammonia 42 umol/L (13-55)
[2024-02-01 16:08] LABS: Alanine Aminotransferase 59 U/L (0-40); Alkaline Phosphatase 148 U/L (39-117); Anion Gap 12 (12-20); Aspartate Amino Transferase 39 U/L (5-37); Bilirubin Total 0.3 mg/dL (0.0-1.0); Blood Urea Nitrogen 8 mg/dL (9-16); Calcium 9.7 mg/dL (8.4-10.2); Carbon Dioxide 30 mmol/L (22-29); Chloride 100 mmol/L (96-108); Cholesterol 121 mg/dL (<200); Estimated Glomerular Filt Rate > 60; Glucose Fasting 105 mg/dL (60-99); Glucose Random 105 mg/dL (60-115); HDL Cholesterol 36 mg/dL (>40); LDL Cholesterol Calculated 31 mg/dL (<100); Potassium 3.9 mmol/L (3.3-5.1); Sodium 138 mmol/L (135-145); Triglycerides 270 mg/dL (<150)
[2024-02-01 16:24] LABS: TSH reflex Free T4 1.81 uIU/mL (0.32-4.0)
[2024-02-04 17:53] LABS: Levetiracetam Keppra 3.8 mcg/mL (6.0-46.0)
== END 2024-02-01 14:47 | disposition home or self-care (01) ==
LOC: HO.LAB 14:46
PROVIDERS: PCP Physician Assistant; Visit Provider Physician Assistant
DX: S06.9X9D Unspecified intracranial injury with loss of consciousness of unspecified duration, subsequent encounter (principal); I26.99 Other pulmonary embolism without acute cor pulmonale; R74.8 Abnormal levels of other serum enzymes; D75.1 Secondary polycythemia; X58.XXXD Exposure to other specified factors, subsequent encounter
CPT/HCPCS: 36415; 80048; 80053; 80061; 80177; 82140; 84443; 85027; 85610

== ENCOUNTER 2024-04-24 18:10 | Outpatient (REF) | payer OTHER, SELFPAY ==
[2024-04-24 19:14] LABS: CDiff Gene PCR POSITIVE (Negative)
[2024-04-24 20:50] LABS: CDIFF Internal ctrl Dots and bkg OK (V); CDiff Toxin Negative (Negative)
[2024-04-24 21:15] LABS: Leukocytes Stool Qualitative NEGATIVE (NEGATIVE)
== END 2024-04-24 18:11 | disposition home or self-care (01) ==
LOC: HO.LNP 18:10
PROVIDERS: Visit Provider Physician Assistant
DX: R19.7 Diarrhea, unspecified (principal)
CPT/HCPCS: 87324; 87329; 87493; 89055

== ENCOUNTER 2024-05-03 15:27 | Outpatient (AMB) | payer OTHER, SELFPAY ==
--- NOTE | 2024-05-03 15:36 | A.OFFVIS_ITS ---
Vital Signs 05/03/24 15:48 Height 5 ft 9 in Weight 229 lb 4.492 oz BMI 33.9 Intake Visit Reasons: 3 mth follow up -G-tube change 18F Intake Note: Patient is seen in office fro 3 month follow up visit, G-tube change. 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 The tube is been functioning well with no apparent skin changes. No leakage is been identified. He was recently hospitalized for pneumonia, felt to be due to his oral secretions. He is improved today. [facility] Medical History Neurogenic bladder Asthma Quadriparesis TBI (traumatic brain injury) History of pulmonary embolism Surgical History History of gastrostomy (06/02/20) History of throat surgery (02/2019) History of brain surgery Family History Mother Interstitial lung disease Father Esophageal cancer DMII (diabetes mellitus, type 2) Social History Household Members: Family Housing: House Alcohol intake: never Patient Tobacco Use Status: Former Tobacco user e-Cigarette/Vaping Use: Never Used Second Hand Smoke Exposure: Yes service: No Current occupational status: disabled Cognitive needs: No Hearing needs: No Vision needs: No Review of Systems Const Unobtainable due to mental condition Physical Exam Resp Other: breathing comfortably on room air GI Other: soft, nondistended, nontender, gastrostomy tube in the left upper quadrant. No granulation tissue noted surrounding the tube, the surrounding skin is clean and intact. The previous G-tube was removed and a new 18 Turkmen gastrostomy tube inserted immediately. A balloon was filled with 10 mL of saline solution. Sterile dressings were then applied. The patient tolerated the G-tube Inspection: Yes G-tube present Skin Other: Warm and dry, no rash Neuro Other: quadriplegia Extrem Other: quadriplegia General: Yes normal to inspection Assessment & Plan Assessment & Plan (1) Malfunction of gastrostomy tube: Code(s): K94.23 - Gastrostomy malfunction Category: Surgical Plan: Patient returns for G-tube placement. The previous G-tube was removed after deflating the balloon and a new 18 Turkmen nell G-tube was reinserted immediately. The tube was easily inserted and the balloon inflated with 10 cc of sterile water. Sterile dressings were then applied. The patient tolerated the procedure well and was discharged to home in stable condition. He will follow up in 3 months for tube change. Coding Level of Care Code Est Pt Level 3 (25841) Diagnoses Malfunction of gastrostomy tube K94.23
[2024-05-03 15:48] VITALS: BMI 33.9
== END 2024-05-03 15:49 | disposition home or self-care (01) ==
PROVIDERS: PCP Physician Assistant; Visit Provider Surgery
DX: K94.23 Gastrostomy malfunction (principal); Z43.1 Encounter for attention to gastrostomy
CPT/HCPCS: 43762; 99213

== ENCOUNTER → 2024-05-03 15:27 | Outpatient (BNVA) | payer OTHER, SELFPAY | PROVIDERS: PCP Physician Assistant; Visit Provider Surgery | DX: K94.23 Gastrostomy malfunction (principal) | CPT/HCPCS: 43762; 99212 ==

== ENCOUNTER 2024-06-07 14:06 | Outpatient (AMB) | payer OTHER, SELFPAY ==
[2024-06-07 14:08] VITALS: BP 130/86; PULSE 78; O2SAT 94
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
== END 2024-06-07 14:33 | disposition home or self-care (01) ==
PROVIDERS: PCP Physician Assistant; Visit Provider Physician Assistant
DX: A04.72 Enterocolitis due to Clostridium difficile, not specified as recurrent (principal); J41.1 Mucopurulent chronic bronchitis; S06.9X9D Unspecified intracranial injury with loss of consciousness of unspecified duration, subsequent encounter; G82.50 Quadriplegia, unspecified; Z86.711 Personal history of pulmonary embolism; D75.1 Secondary polycythemia; R74.8 Abnormal levels of other serum enzymes
CPT/HCPCS: 99214

== ENCOUNTER 2024-07-06 13:01 | Outpatient (AMB) | payer OTHER, SELFPAY ==
[2024-07-06 13:12] VITALS: BP 128/86; PULSE 98; O2SAT 93
--- NOTE | 2024-07-06 13:12 | MHC.PC.OV ---
Vital Signs 07/06/24 13:12 Height 5 ft 9 in BP 128/86 Blood Pressure Location Rt brachial Position Sitting Pulse 98 Pulse Source Pulse Oximeter Pulse Oximetry (%) 93 Oxygen Delivery Method Room Air Intake Visit Reasons: [facility] 06/28 fever, seizure Intake Note: Patient is here for hospital discharge follow up. Patient was discharged from [facility] on 06/28/24 Allergies latex [LATEX] Allergy (Intermediate, Verified 06/07/24 14:17) HIVES strawberry [STRAWBERRY] Allergy (Intermediate, Verified 06/07/24 14:17) HIVES Medication List - Last Reconciled 07/06/24 by Ethel Restrepo PA-C [adult diapers As directed] albuterol sulfate 2.5 mg (3 mL) inhalation .4 times a day PRN 90 days amantadine HCl 200 mg (20 mL) PO BID 30 days disposable gloves As directed [incontinence wipes As directed] ketoconazole 2% 1 appl topical DAILY 15 days lactose-reduced food with fibr 0.07 gram-1.5 kcal/mL (Isosource 1.5 Matthew) 1 ea feeding tube DAILY 30 days lansoprazole 15 mg PO DAILY levetiracetam 750 mg PO DAILY PRN loperamide (Anti-Diarrheal (loperamide)) 2 mg PO Q6H 7 days methylphenidate HCl 1 mg PO BID metoprolol tartrate 25 mg PO BID miscellaneous medical supply 1 ea miscellaneous .PRN 99 days miscellaneous medical supply 1 ea miscellaneous BID 30 days miscellaneous medical supply 1 ea miscellaneous QID 30 days miscellaneous medical supply 1 ea miscellaneous DAILY 99 days miscellaneous medical supply 1 ea miscellaneous .nightly 90 days miscellaneous medical supply 1 ea miscellaneous QID 30 days miscellaneous medical supply 1 ea miscellaneous DAILY 99 days nebulizer and compressor (Portable Nebulizer System) As directed Portable Suction Machine w/tubing,canister&filter (Suction machine w/tubing, canister and filter) As directed rivaroxaban (Xarelto) 10 mg PO DAILY 90 days underpads (Goodnites Bed Mats) As directed vancomycin (Vancocin) 125 mg PO QID 10 days Tobacco use date assessed: 06/07/24 Dental Screening Dental Screen Date: 06/07/24 HPI [facility] 06/28 fever, seizure HPI Details 33-year-old male here today for a follow-up visit. 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 In review of the notes, Patient presented to [facility] ED with fever.? CT chest was negative and CT abdomen and pelvis was within normal limits.?Patient was found to be septic in the ER and plan to transfer to [facility] for admission for acute hypoxic respiratory failure.?Patient was placed on IV ampicillin sulbactam.? Patient was also found to have hematuria while in the ER after Edwards placement which resolved with a Edwards removed.? Patient was discharged home to continue on medication for C diff. Patient presents today with a family member. Per her report he is still taking the oral vanco and has a few days left and is no longer having watery diarrhea. She does mentioned his stool is looser than normal but has been improving. She denies any fevers or abnormal vital signs. Patient is no longer having bleeding around the G-tube or around the urethra and all symptoms have resolved at this time. She does mentioned he was placed on metoprolol for 30 days while in the hospital however in review of the notes unsure of the reason why. [facility] Medical History Neurogenic bladder Asthma Quadriparesis TBI (traumatic brain injury) History of pulmonary embolism Surgical History History of gastrostomy (06/02/20) History of throat surgery (02/2019) History of brain surgery Family History Mother Interstitial lung disease Father Esophageal cancer DMII (diabetes mellitus, type 2) Social History Household Members: Family Housing: House Alcohol intake: never Patient Tobacco Use Status: Former Tobacco user e-Cigarette/Vaping Use: Never Used Second Hand Smoke Exposure: Yes service: No Current occupational status: disabled Cognitive needs: No Hearing needs: No Vision needs: No Questionnaire Thrive Questionnaire Date Thrive assessed: 01/23/24 AUDIT C Alcohol Use Questionnaire (AUDIT-C) 1. How often do you have a drink containing alcohol?: Never 3. How often do you have six or more drinks on one occasion?: Never Total Score: 0 OMRA-7 AMB Questionnaire OMAR-7 Date OMAR - 7 assessed: 02/17/22 Source: Developed by Drs. Josué Amin, Lala Bah, Delio Samuel and colleagues, with an educational eduin from [employer]. Review of Systems Const Denies fever(s) Eyes Reports no additional complaints Card Denies chest pain, Denies edema and Denies dyspnea Resp Denies cough and Denies dyspnea GI Denies abdominal pain, Denies constipation, Reports diarrhea, Denies nausea and Denies vomiting Details: No blood in the urine Musc Reports no additional complaints Skin/Breast Reports system reviewed and no additional complaints, except as documented Neuro Reports no additional complaints Psych Reports no additional complaints Physical exam (Primary Care) Vital Signs: Last Vital Signs Pulse 98 07/06/24 13:12 BP 128/86 07/06/24 13:12 Pulse Ox 93 07/06/24 13:12 Oxygen Delivery Method Room Air 07/06/24 13:12 Tobacco/Smoking Status: Tobacco use Status Tobacco use date assessed 06/07/24 07/06/24 13:15 Patient Tobacco Use Status Former Tobacco user 07/06/24 13:15 e-Cigarette/Vaping Use Never Used 07/06/24 13:15 Thrive Assessment: Date of Thrive Assessment Date Thrive assessed 01/23/24 07/06/24 13:15 Const General: cooperative, healthy appearing, comfortable and no acute distress HENMT Head: Yes normocephalic Ears: hearing grossly normal bilaterally General nose exam: Normal external nose present Eyes General: appearance normal, both eyes and all related structures Conjunctivae: conjunctivae normal Resp Effort & Inspection: normal respiratory effort Auscultation: clear to auscultation bilaterally, no crackles, no rales, no rhonchi and no wheezes Cardio Rate: regular rate Rhythm: regular rhythm GI Palpation (GI): Soft to palpation, not firm, nontender, no guarding and not rigid Skin General skin exam: no rashes or lesions noted Neuro Gait exam (Neuro): Normal gait present Extrem General: Yes normal to inspection, Yes full ROM and No edema Psych Affect: normal affect Attitude: cooperative Insight: Good insight present (Psych) Judgement: Good judgement present (Psych) Assessment and Plan Assessment & Plan (1) C. difficile diarrhea: Code(s): A04.72 - Enterocolitis due to Clostridium difficile, not specified as recurrent Plan: Patient to continue on oral vancomycin. Diarrhea is no longer watery and has been improving in consistency. Continue to monitor symptoms. (2) Seizure disorder: Code(s): G40.909 - Epilepsy, unspecified, not intractable, without status epilepticus Plan: Patient was thought to have possibly had a seizure prior to admission to the hospital. Patient has not had seizure in several years. Continue on Keppra daily. (3) Aspiration pneumonia: Code(s): J69.0 - Pneumonitis due to inhalation of food and vomit Qualifiers: Aspiration pneumonia type: unspecified Laterality: right Lung location: lower lobe of lung Qualified Code(s): J69.0 - Pneumonitis due to inhalation of food and vomit Plan: Per hospital notes patient was likely to have had aspiration pneumonia and was treated with IV antibiotics while in the hospital. Patient has been afebrile while at home and no concerns of a cough. Continue to monitor symptoms (4) Hospital discharge follow-up: Code(s): Z09 - Encounter for follow-up examination after completed treatment for conditions other than malignant neoplasm Plan: Patient was discharged from [facility] after being treated for sepsis, C diff infection, and aspiration pneumonia. Patient has been doing well per representatives report and symptoms have completely resolved. Patient appears to be at baseline we will continue to monitor symptoms follow up at next appointment or sooner if new concerns arise. Patient was placed on metoprolol for 30 days after discharge unclear of the reason why. Advised to monitor blood pressure and heart rate after discontinuing the medication. Plan This note was constructed using voice recognition software. While every effort has been made to ensure accuracy and elementary librarian, still areas may have been included sometimes these areas may affect the content or meeting of the given symptoms. Total time spent caring for the patient today was 30 minutes. This includes time spent before the visit reviewing the chart, time spent during the visit, and time spent after the visit and documentation. Coding Level of Care Code Est Pt Level 3 (90841) Diagnoses C. difficile diarrhea A04.72 Seizure disorder G40.909 Aspiration pneumonia of right lower lobe, unspecified aspiration pneumonia type J69.0 Aspiration pneumonia type: unspecified Laterality: right Lung location: lower lobe of lung Hospital discharge follow-up Z09
== END 2024-07-06 13:40 | disposition home or self-care (01) ==
PROVIDERS: PCP Physician Assistant
DX: A04.72 Enterocolitis due to Clostridium difficile, not specified as recurrent (principal); G40.909 Epilepsy, unspecified, not intractable, without status epilepticus; J69.0 Pneumonitis due to inhalation of food and vomit; Z09 Encounter for follow-up examination after completed treatment for conditions other than malignant neoplasm
CPT/HCPCS: 99213

== ENCOUNTER 2024-08-03 15:01 | Outpatient (AMB) | payer OTHER, SELFPAY ==
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
[2024-08-03 15:10] VITALS: BP 116/76; PULSE 73; BMI 31.7
== END 2024-08-03 16:20 | disposition home or self-care (01) ==
PROVIDERS: PCP Physician Assistant; Visit Provider Internal Medicine
DX: A04.72 Enterocolitis due to Clostridium difficile, not specified as recurrent (principal); R19.7 Diarrhea, unspecified; S06.9X9D Unspecified intracranial injury with loss of consciousness of unspecified duration, subsequent encounter
CPT/HCPCS: 99499

== ENCOUNTER → 2024-08-03 15:01 | Outpatient (BNVA) | payer OTHER, SELFPAY | PROVIDERS: PCP Physician Assistant; Visit Provider Internal Medicine ==

== ENCOUNTER 2024-08-16 15:18 | Outpatient (AMB) | payer OTHER, SELFPAY ==
[2024-08-16 15:23] VITALS: PULSE 72; BMI 31.6
--- NOTE | 2024-08-16 15:23 | MHC.OFFVIS ---
Vital Signs 08/16/24 15:23 Height 5 ft 9 in Weight 213 lb 13.574 oz BMI 31.6 BP not taken reason Medical Reason Pulse 72 Intake Visit Reasons: 3 mth follow up -G-tube change 18F Intake Note: Patient is seen in office for 3 month follow up visit, G-tube change 18F. Airborne Operations Required: No Accompanied by: Other Relationship Allergies latex [LATEX] Allergy (Intermediate, Verified 08/16/24 15:25) HIVES strawberry [STRAWBERRY] Allergy (Intermediate, Verified 08/16/24 15:25) HIVES Medication List - Last Reconciled 08/16/24 by Souleymane Roberts MD [adult diapers As directed] albuterol sulfate 2.5 mg (3 mL) inhalation .4 times a day PRN 90 days amantadine HCl 200 mg (20 mL) PO BID 30 days disposable gloves As directed [incontinence wipes As directed] ketoconazole 2% 1 appl topical DAILY 15 days lactose-reduced food with fibr 0.07 gram-1.5 kcal/mL (Isosource 1.5 Matthew) 1 ea feeding tube DAILY 30 days lansoprazole 15 mg PO DAILY levetiracetam 750 mg PO DAILY PRN loperamide (Anti-Diarrheal (loperamide)) 2 mg PO Q6H 7 days methylphenidate HCl 1 mg PO BID metoprolol tartrate 25 mg PO BID miscellaneous medical supply 1 ea miscellaneous .PRN 99 days miscellaneous medical supply 1 ea miscellaneous BID 30 days miscellaneous medical supply 1 ea miscellaneous QID 30 days miscellaneous medical supply 1 ea miscellaneous DAILY 99 days miscellaneous medical supply 1 ea miscellaneous .nightly 90 days miscellaneous medical supply 1 ea miscellaneous QID 30 days miscellaneous medical supply 1 ea miscellaneous DAILY 99 days nebulizer and compressor (Portable Nebulizer System) As directed Portable Suction Machine w/tubing,canister&filter (Suction machine w/tubing, canister and filter) As directed rivaroxaban (Xarelto) 10 mg PO DAILY 90 days underpads (Goodnites Bed Mats) As directed HPI Comments Details: Kike Matson returns to the office for G-tube change.? The tube is been functioning well with no apparent skin changes. No leakage is been identified. [facility] Medical History Neurogenic bladder Asthma Quadriparesis TBI (traumatic brain injury) History of pulmonary embolism Surgical History History of gastrostomy (06/02/20) History of throat surgery (02/2019) History of brain surgery Family History Mother Interstitial lung disease Father Esophageal cancer DMII (diabetes mellitus, type 2) Social History Household Members: Family Housing: House Alcohol intake: never Patient Tobacco Use Status: Former Tobacco user e-Cigarette/Vaping Use: Never Used Second Hand Smoke Exposure: Yes service: No Current occupational status: disabled Cognitive needs: No Hearing needs: No Vision needs: No Review of Systems Const Unobtainable due to mental condition Physical Exam Vital Signs: Last Vital Signs Pulse 72 08/16/24 15:23 BMI result Body Mass Index 31.6 Resp Other: breathing comfortably on room air GI Other: soft, nondistended, nontender, gastrostomy tube in the left upper quadrant. No granulation tissue noted surrounding the tube, the surrounding skin is clean and intact. The previous G-tube was removed and a new 18 Tamazight gastrostomy tube inserted immediately. A balloon was filled with 10 mL of saline solution. Sterile dressings were then applied. The patient tolerated the G-tube Inspection: Yes G-tube present Skin Other: Warm and dry, no rash Neuro Other: quadriplegia Extrem Other: quadriplegia General: Yes normal to inspection Assessment & Plan Assessment & Plan (1) Malfunction of gastrostomy tube: Code(s): K94.23 - Gastrostomy malfunction Category: Surgical Plan: Patient returns for G-tube placement. The previous G-tube was removed after deflating the balloon and a new 18 Tamazight nell G-tube was reinserted immediately. The tube was easily inserted and the balloon inflated with 10 cc of sterile water. Sterile dressings were then applied. The patient tolerated the procedure well and was discharged to home in stable condition. He will follow up in 3 months for tube change. Coding Level of Care Code Est Pt Level 3 (40981) Diagnoses Malfunction of gastrostomy tube K94.23
== END 2024-08-16 15:33 | disposition home or self-care (01) ==
PROVIDERS: PCP Physician Assistant; Visit Provider Surgery
DX: K94.23 Gastrostomy malfunction (principal)
CPT/HCPCS: 99213

== ENCOUNTER → 2024-08-16 15:18 | Outpatient (BNVA) | payer OTHER, SELFPAY | PROVIDERS: PCP Physician Assistant; Visit Provider Surgery | DX: Z46.59 Encounter for fitting and adjustment of other gastrointestinal appliance and device (principal); K94.23 Gastrostomy malfunction | CPT/HCPCS: 99212 ==

== ENCOUNTER 2024-11-23 10:30 | Outpatient (AMB) | payer OTHER, SELFPAY ==
--- NOTE | 2024-11-23 10:35 | MHC.OFFVIS ---
Vital Signs 11/23/24 10:47 BMI Reason not done Palliative Care Patient BP not taken reason Medical Reason Intake Visit Reasons: 3 mth follow up -G-tube change 18F Intake Note: Office procedure: 3 month follow-up G-tube change 18F. Supervisor Lump Room Required: No Accompanied by: Family/Other Allergies latex [LATEX] Allergy (Intermediate, Verified 11/23/24 10:47) HIVES strawberry [STRAWBERRY] Allergy (Intermediate, Verified 11/23/24 10:47) HIVES HPI Comments Details: Kike Matson returns to the office for G-tube change.? The tube is been functioning well with no apparent skin changes. No leakage is been identified. [facility] Medical History Neurogenic bladder Asthma Quadriparesis TBI (traumatic brain injury) History of pulmonary embolism Surgical History History of gastrostomy (06/02/20) History of throat surgery (02/2019) History of brain surgery Family History Mother Interstitial lung disease Father Esophageal cancer DMII (diabetes mellitus, type 2) Social History Household Members: Family Housing: House Alcohol intake: never Patient Tobacco Use Status: Former Tobacco user e-Cigarette/Vaping Use: Never Used Second Hand Smoke Exposure: Yes service: No Current occupational status: disabled Cognitive needs: No Hearing needs: No Vision needs: No Review of Systems Const Unobtainable due to mental condition Physical Exam Resp Other: breathing comfortably on room air GI Other: soft, nondistended, nontender, gastrostomy tube in the left upper quadrant. No granulation tissue noted surrounding the tube, the surrounding skin is clean and intact. The previous G-tube was removed and a new 18 Turkish gastrostomy tube inserted immediately. A balloon was filled with 10 mL of saline solution. Sterile dressings were then applied. The patient tolerated the G-tube Inspection: Yes G-tube present Skin Other: Warm and dry, no rash Neuro Other: quadriplegia Extrem Other: quadriplegia General: Yes normal to inspection Assessment & Plan Assessment & Plan (1) Malfunction of gastrostomy tube: Code(s): K94.23 - Gastrostomy malfunction Category: Surgical Plan: Patient returns for G-tube placement. The previous G-tube was removed after deflating the balloon and a new 18 Turkish nell G-tube was reinserted immediately. The tube was easily inserted and the balloon inflated with 10 cc of sterile water. Sterile dressings were then applied. The patient tolerated the procedure well and was discharged to home in stable condition. He will follow up in 3 months for tube change. Coding Level of Care Code Est Pt Level 3 (48560) Diagnoses Malfunction of gastrostomy tube K94.23
--- OUTSIDE RECORDS SUMMARY | 2024-11-23 11:55 | XMS_ITS | Data Portability ---
Author Organization [place] Narrative [facility], [facility] Address [address] [place] [id number] Care Team Providers Care Associate Director Regulatory Affairs Name Role Phone [facility] Referring Provider Assessment No assessment recorded. Plan of Treatment Reminders Order Date Submit Date Provider Last Modified By Organization Details Last Modified Time Details Appointments None recorded. Lab rapid flu (A+B) 2022 023 [facility], [address] [place] [address], [id number], 3 14:24:24 rapid SARS CoV 2 Ag, QL IA, respiratory specimen 2022 023 [facility], [address] [place] [address], [id number], 14:24:24 Referral None recorded. Procedures None recorded. Surgeries None recorded. Imaging None recorded. Medication Orders None recorded. Patient TargetsNo targets recorded. Patient InstructionsNo instructions recorded. Reason for Referral None Reported. Results Created Date Observation Date Name Description Value Unit Range Abnormal Flag Note LastModifiedBy Organization Detail LastModifiedTime 05/17/2005/17/2023 rapid SARS CoV 2 Ag, QL IA, respi rator y speci men rapid SARS CoV 2 Ag, QL IA, respiratory specimen negati ve Not Available [facility] ed [address] [place] [address], [id number], 05/17/2023 14:24:00 05/17/20 23 05/17/2023 rapid flu (A+B) Flu negati ve Not Available [facility] ed [address] [place] [address], [id number], 05/17/2023 14:23:56 Result Notes None recorded. Medical Equipment None Reported. Allergies Allergen ID Allergen Name Allergen Category Reaction Reaction Severity Criticality Documentation Date Start Date Code Code System Note Provider Name and Address Organization Details Recorded Time 7073 latex environme nt,medica tion Not available Not available Not available 09/18/2024 48640 91 RxNorm Not Available [facility] 4 03:34:47 Medications Name Sig Start Date Stop Date Status Note LastModified by Organization Details LastModified Time amantadine HCl 50 mg/5 mL oral solution TAKE 20 ML BY MOUTH TWICE DAILY active Not Available Not Available No t Available albuterol sulfate 2.5 mg/3 mL (0.083 %) solution for nebulization USE 1 VIAL IN NEBULIZER 4 TIMES DAILY NEEDED FOR SHORTNESS OF BREATH OR WHEEZING active Not Available Not Available No t Available azithromycin 250 mg tablet TAKE 2 TABLETS BY MOUTH ON DAY 1, AND THEN TAKE 1 TABLET BY MOUTH ONCE A DAY ON DAY 2 THROUGH DAY 5 active Not Available Not Available No t Available methylphenida te 10 mg tablet TAKE 2 TABLETS BY MOUTH TWICE DAILY active Not Available Not Available No t Available levetiracetam 750 mg tablet TAKE 1 TABLET BY MOUTH ONCE DAILY active Not Available Not Available No t Available Xarelto 10 mg tablet TAKE 1 TABLET BY MOUTH ONCE DAILY active Not Available Not Available No t Available Vitals Date Recorded Body weight Respiratory rate Oxygen saturation Oxygen saturation in Arterial blood by Pulse oximetry Body temperature Heart rate Body temperature Respiratory rate Body weight Oxygen saturation Oxygen saturation in Arterial blood by Pulse oximetry Heart rate Systolic blood pressure Diastolic blood pressure Systolic blood pressure Diastolic blood pressure Provider Name and Address Organization Details Last Updated DateTime 3 40779.5 6 g 18 /min 98 % 98 % 96.8 [degF] 70 /min 96.8 [degF] 18 /min 42270.5 6 g 98 % 98 % 70 /min 138 mm[Hg] 94 mm[Hg] 138 mm[Hg] 94 mm[Hg] Not Available [employer] 3 14:15:11 Date Recorded Body temperature Respiratory rate Oxygen saturation Oxygen saturation in Arterial blood by Pulse oximetry Heart rate Systolic blood pressure Diastolic blood pressure Provider Name and Address Organization Details Last Updated DateTime 3 97.9 [degF] 16 /min 97 % 97 % 84 /min 132 mm[Hg] 76 mm[Hg] Not Available [employer] 21:35:01 Social History None recorded. Functional Status None recorded. Mental Status None recorded. Family History Nothing Reported. Medical History No medical history recorded. Past Encounters Encounter ID Performer Location Encounter Start Date Encounter Closed Date Diagnosis/Indication Diagnosis SNOMED-CT Code Diagnosis ICD10 Code [id number] Destin Martinez MD Main - [address] [phone] 05/17/2023 13:54:34 05/18/2023 08:45:23 Wheeze - rhonchi [id number] R09.89 [id number] Felicity Juarez MD Main - [facility] [address] [place] [phone] 07/03/2023 21:34:59 07/05/2023 15:35:52 Cough 11266757 R05.9 Health Concerns Section Related Observation LastModified by Organization Detai ls LastModified Time None Recorded Concern Status LastModified by Organization Details LastModified Time None Recorded Advance Directives Directive None Recorded Payers Encounter Date Sequence Insurance Name Policy Number Policy Bravo Covered Member ID Bravo Member ID Guarantor Name 05/17/2023 1 [facility] - DOS ON OR AFTER 2023 - DUAL ELIGIBLE - CORRECTION OPTIONS AND ONE CARE (MEDICARE REPLACEMENT/ADV ANTAGE - HMO) Kike Matson [id number] Kike Matson 07/03/2023 1 [facility] - DOS ON OR AFTER 2023 - DUAL ELIGIBLE - CORRECTION OPTIONS AND ONE CARE (MEDICARE REPLACEMENT/ADV ANTAGE - HMO) Kike Matson [id number] Kike Matson Notes Date Note Type Note Provider Name and Address Organization Details Recorded Time 05/17/2023 text/html HPI: Member's caregiver is reporting wheezing and congestion. 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 .................... .................... .................... .................... .................... .................... . CRC Nursing Assessment: Comments: CRC RN did not require any additional information to process this visit. .................... .................... .................... .................... .................... .................... .................... . Fish Liver Sorter Note From Donovan Rodrigues: pt's caregiver requesting visit for possible difficulty breathing upon arrival campground caretaker and pt's sister on scene, pt was found in a motorized wheelchair, pt has had prior brain injuries rendering him non verbal. Pt is able to answer yes/no questions by blinking. Pt denies SOb but endorses feeling unwell. COVID and Flu swabs were performed, both negative. Lung sounds assessed and were without wheezing, rhonchi, rales. Lung sounds are sonorous but could be due to pt positioning/airway positioning Pt appears well. vitals within normal limits. [facility] contacted, [facility] recommends the pt's caregivers keep a close watch over the pt and if he started to develop worsening symptoms to f/u with [facility] or PCP. Family educated on s/s warranting a 911 call/trip to the hospital. Fish Liver Sorter Allergies: Latex .................... .................... .................... .................... .................... .................... .................... . Disposition: Dixie Destin Martinez MD [address] [facility],[address], [place], [phone], [employer] 05/17/2023 15:54:33 07/03/2023 text/html CRC Nursing Assessment: Patient Reports: Cough Chief Complaints: Cough PMH: Para or Quadraplegia, COPD/Asthma Allergies: Latex Comments: Mom calling on behalf of member with request for [facility] visit for eval cough since this am. Deny fever/chills Verify name/- .................... .................... .................... .................... .................... .................... .................... . Fish Liver Sorter Note From Faisal Shah: Dispatched to the call address for the male with a cough. Family states Pt has not had a cough all day but just had a coughing episode around 1900 this evening. They state Pt coughed up white phlegm and they gave him an updraft and since then he has been fine. Pt is non verbal. Family states Pt appears to be at his baseline. Pt was found sitting in wheel chair in kitchen, alert, airway open and patent, breathing non labored, skin PWD with good turgor, abd soft non tender/distended, pupils PERRL, -JVD, -HEENT, lung sounds clear and equal bilaterally, Pt in no obvious distress. C consulted. Red flags discussed. ALL times are approx. .................... .................... .................... .................... .................... .................... .................... . Disposition: Fulfilled Felicity Juarez MD [address] [facility],[address], [place], [phone], [employer] 07/03/2023 23:04:38
== END 2024-11-23 10:50 | disposition home or self-care (01) ==
PROVIDERS: PCP Physician Assistant; Visit Provider Surgery
DX: K94.23 Gastrostomy malfunction (principal)
CPT/HCPCS: 99213

== ENCOUNTER → 2024-11-23 10:30 | Outpatient (BNVA) | payer OTHER, SELFPAY | PROVIDERS: PCP Physician Assistant; Visit Provider Surgery | DX: K94.23 Gastrostomy malfunction (principal) | CPT/HCPCS: 99212 ==

== ENCOUNTER → 2024-12-26 23:59 | Outpatient (BNV) | payer OTHER, SELFPAY | PROVIDERS: PCP Physician Assistant; Visit Provider Physician Assistant | DX: J69.0 Pneumonitis due to inhalation of food and vomit (principal); K94.23 Gastrostomy malfunction; R13.10 Dysphagia, unspecified | CPT/HCPCS: G0180 ==

== ENCOUNTER 2025-01-09 13:25 | Outpatient (AMB) | payer OTHER, SELFPAY ==
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
[2025-01-09 13:34] VITALS: BP 142/90; PULSE 75; O2SAT 94; BMI 30.6
--- OUTSIDE RECORDS SUMMARY | 2025-01-09 13:48 | XMS_ITS | Clinical Summary ---
Author Organization [facility] Address [id number] [place] [id number] Care Team Providers Care Compensation Business Partner Name Role Phone Martir Espino Primary Care Provider Surgical History Surgery Date Site/Laterality Comments OTHER SURGICAL HISTORY PROCEDURE: MA UNLISTED MUSCULOSKELETAL PROCEDURE HEAD OTHER SURGICAL HISTORY PROCEDURE: MA GASTRIC INTUBATION DX & ASPIRATJ MULTIPLE SPEC Medical History Medical History Date Comments TBI (traumatic brain injury) (CMS/HCC) DX:TBI (traumatic brain injury) ([facility]) Social History Tobacco Use Types Packs/Day Years Used Date Smoking Tobacco: Former Smokeless Tobacco: Never Alcohol Use Standard Drinks/Week Comments No 0 (1 standard drink = 0.6 oz pur e alcohol) Sex and Gender Information Value Date Recorded Sex Assigned at Not on file Legal Sex Male 5:20 PM EST Gender Identity Not on file Sexual Orientation Not on file Obstetrics History Plan of Treatment Health Maintenance Due Date Last Done Comments DTaP,Tdap,and Td Vaccines (1 - Tdap) 2011 Hepatitis B Vaccines (1 of 3 - 19+ 3-dose series) 2011 COVID-19 Vaccine (2023-2 5 season) 2024 Influenza Vaccine (#1) 2024 HIB Vaccines Aged Out No longer eligi ble based on patient's age to complete this topic HPV Vaccines Aged Out No longer eligi ble based on patient's age to complete this topic Hepatitis A Vaccines Aged Out No long er eligible based on patient's age to complete this topic IPV Vaccines Aged Out No longer eligi ble based on patient's age to complete this topic MMR Vaccines Aged Out No longer eligi ble based on patient's age to complete this topic Meningococcal ACWY Vaccine Aged Out N o longer eligible based on patient's age to complete this topic Meningococcal B Vacine Aged Out No lo nger eligible based on patient's age to complete this topic Pneumococcal Vaccine: Pediat rics (0 to 5 Years) and At-Risk Patients (6 to 64 Years) Aged Out No longer eligible b ased on patient's age to complete this topic RSV Immunization Patients Un aleta 20 months Aged Out No longer eligible b ased on patient's age to complete this topic Varicella Vaccines Aged Out No longer eligible based on patient's age to complete this topic Care Teams Compensation Business Partner Relationship Specialty Start Date End Date Martir Espino PA PCP - General Internal Medicine 10/16/19
--- OUTSIDE RECORDS SUMMARY | 2025-01-09 13:48 | XMS_ITS | Data Portability ---
Author Organization [employer] Address [address] [place] [phone] Care Team Providers Care Security Installer Name Role Phone HIM CCA OTHER [facility] Primary Care Provider Assessment No assessment recorded. Plan of Treatment Reminders Order Date Submit Date Provider Last Modified By Organization Details Last Modified Time Details Appointments None recorded. Lab rapid SARS CoV 2 Ag, QL IA, respiratory specimen 2024 025 [facility], [address] [place] [address], [phone], 5 18:37:27 rapid flu (A+B) 2024 025 [facility], [address] [place] [address], [phone], 5 18:37:32 rapid flu (A+B) 2022 023 [facility], [address] [place] [address], [phone], 3 14:24:24 rapid SARS CoV 2 Ag, QL IA, respiratory specimen 2022 023 [facility], [address] [place] [address], [phone], 3 14:24:24 Referral None recorded. Procedures None recorded. Surgeries None recorded. Imaging None recorded. Medication Orders Augmentin 125 mg-31.25 mg/5 mL oral suspension 2024 025 [facility], [address] [place] [address], [place], [phone], 5 18:21:19 sodium chloride 0.9 % for nebulizatio n 2024 025 [facility], [address] [facility], [place], [phone], 18:21:20 Patient TargetsNo targets recorded. Patient InstructionsNo instructions recorded. Reason for Referral None Reported. Results Created Date Observation Date Name Description Value Unit Range Abnormal Flag Note LastModifiedBy Organization Detail LastModifiedTime 05/17/2005/17/2023 rapid SARS CoV 2 Ag, QL IA, respi rator y speci men rapid SARS CoV 2 Ag, QL IA, respiratory specimen negati ve Not Available [facility] [place] [facility] [address] [place] [address], [phone], 05/17/2023 14:24:00 05/17/20 23 05/17/2023 rapid flu (A+B) Flu negati ve Not Available [facility] [place] ed [address] [place] [address], [phone], 05/17/2023 14:23:56 12/06/19 25 12/06/2024 rapid flu (A+B) Flu negati ve Not Available [facility] [place] ed [address] [place] [address], [phone], 12/06/2024 18:24:30 12/06/19 25 12/06/2024 rapid SARS CoV 2 Ag, QL IA, respi rator y speci men rapid SARS CoV 2 Ag, QL IA, respiratory specimen negati ve Not Available [facility] [place] [facility] [address] [place] [address], [phone], 12/06/2024 18:24:18 Result Notes None recorded. Medical Equipment None Reported. Allergies Allergen ID Allergen Name Allergen Category Reaction Reaction Severity Criticality Documentation Date Start Date Code Code System Note Provider Name and Address Organization Details Recorded Time 7086 latex environme nt,medica tion Not available Not available Not available 09/18/2024 14272 91 RxNorm Not Available [facility] - production 03:34:47 Medications Name Sig Start Date Stop Date Status Note LastModified by Organization Details LastModified Time amantadine HCl 50 mg/5 mL oral solution TAKE 20 ML BY MOUTH TWICE DAILY active Not Available Not Available Not Available amantadine HCl 100 mg tablet TAKE 2 TABLETS BY MOUTH TWICE DAILY. (TAKE IN THE MORNING AND EARLY AFTERNOON) active Not Available Not Available N ot Available albuterol sulfate 2.5 mg/3 mL (0.083 %) solution for nebulization USE ONE VIAL (3 ML) IN NEBULIZER 4 TIMES DAILY NEEDED FOR SHORTNESS OF BREATH OR WHEEZING active Not Available Not Available Not Available azithromycin 250 mg tablet TAKE 2 TABLETS BY MOUTH ON DAY 1, AND THEN TAKE 1 TABLET BY MOUTH ONCE A DAY ON DAY 2 THROUGH DAY 5 active Not Available Not Available No t Available methylphenid ate 10 mg tablet TAKE 2 TABLETS BY MOUTH TWICE DAILY active Not Available Not Available No t Available loperamide 2 mg tablet TAKE 1 TABLET BY MOUTH EVERY 6 HOURS FOR LOOSE STOOL FOR 7 DAYS active Not Available Not Available N ot Available metronidazol e 500 mg tablet TAKE 1 TABLET BY MOUTH EVERY 8 HOURS FOR 10 DAYS active Not Available Not Available No t Available vancomycin 125 mg capsule TAKE 1 CAPSULE BY MOUTH 4 TIMES DAILY FOR 10 DAYS active Not Available Not Available Not Available amoxicillin 400 mg-potassium clavulanate 57 mg/5 mL oral suspension TAKE 12 ML VIA G TUBE TWICE DAILY FOR 7 DAYS *DISCARD REMAINDER active Not Available Not Available No t Available Augmentin 125 mg-31.25 mg/5 mL oral suspension TAKE 20 ML BY MOUTH EVERY 8 HOURS FOR 7 DAYS. DISCARD REMAINDER active Not Available Not Available No t Available lansoprazole 15 mg capsule,tommy yed release TAKE 1 CAPSULE VIA G TUBE DAILY Capsule can be opened, the granules mixed (not crushed) with 40 mL of apple juice and then administere d through the G tube into the stomach, then flush tube with additional apple juice. Do not mix with other liquids. active Not Available Not Available No t Available levetiraceta m 750 mg tablet TAKE 1 TABLET BY MOUTH ONCE DAILY active Not Available Not Available No t Available sodium chloride 0.9 % for nebulization USE 1 VIAL IN NEBULIZER TWICE DAILY FOR 7 DAYS active Not Available Not Available N ot Available metoprolol tartrate 25 mg tablet TAKE 1 TABLET VIA G TUBE TWICE DAILY active Not Available Not Available Not Available Xarelto 10 mg tablet TAKE 1 TABLET BY MOUTH ONCE DAILY active Not Available Not Available No t Available vancomycin 25 mg/mL oral solution TAKE 5 ML VIA G-TUBE EVERY DAY FOR 7 DAYS (DISCARD ANY REMAINDER) active Not Available Not Available N ot Available Vitals Date Recorded Body weight Respiratory rate Oxygen saturation Oxygen saturation in Arterial blood by Pulse oximetry Body temperature Heart rate Body temperature Respiratory rate Body weight Oxygen saturation Oxygen saturation in Arterial blood by Pulse oximetry Heart rate Systolic blood pressure Diastolic blood pressure Systolic blood pressure Diastolic blood pressure Provider Name and Address Organization Details Last Updated DateTime 3 06758.5 6 g 18 /min 98 % 98 % 96.8 [degF] 70 /min 96.8 [degF] 18 /min 19751.5 6 g 98 % 98 % 70 /min 138 mm[Hg] 94 mm[Hg] 138 mm[Hg] 94 mm[Hg] Not Available [employer] 3 14:15:11 Date Recorded Body temperature Respiratory rate Oxygen saturation Oxygen saturation in Arterial blood by Pulse oximetry Heart rate Systolic blood pressure Diastolic blood pressure Provider Name and Address Organization Details Last Updated DateTime 3 97.9 [degF] 16 /min 97 % 97 % 84 /min 132 mm[Hg] 76 mm[Hg] Not Available [employer] 3 21:35:01 Date Recorded Body weight Body height Respiratory rate Body temperature Heart rate Oxygen saturation Oxygen saturation in Arterial blood by Pulse oximetry Systolic blood pressure Diastolic blood pressure Provider Name and Address Organization Details Last Updated DateTime 5 09225.2 8 g 172.72 cm 18 /min 99.2 [degF] 90 /min 99 % 99 % 129 mm[Hg] 91 mm[Hg] Not Available [employer] 5 17:57:53 Social History None recorded. Functional Status None recorded. Mental Status None recorded. Family History Nothing Reported. Medical History No medical history recorded. Past Encounters Encounter ID Performer Location Encounter Start Date Encounter Closed Date Diagnosis/Indication Diagnosis SNOMED-CT Code Diagnosis ICD10 Code Diagnosis Note [id number] Destin Martinez MD Main - [facility] [address] [place] [address] 05/17/2023 13:54:34 05/18/2023 08:45:23 Wheeze - rhonchi [id number] R09.89 Gin Pole Operator reports sonorous lung sounds which a difficult to interpret. Vital signs are reviewed and unremarkab le. Flu and COVID negative. Possible aspiration event? Family follows patiet closely, does not think that he needs hospital evaluation for now. Will closely observe at home with a low threshold to seek further medical care. Recommende d PCP follow-up within the week. [id number] Felicity Juarez MD Main - [facility] [address] [place] [phone] 07/03/2023 21:34:59 07/05/2023 15:35:52 Cough 80648909 R05.9 32 yo M developed isolated coughing fit today (expectora quita clear sputum) from which he has recovered and is back to baseline. has no w/r/r, no residual dyspnea or MORA. Exam is unremarkab le. No interventi on is indicated. reviewed warning signs/sx, pt and industrial millwright agree with plan. [id number] INOCENCIO ROBLES MD Main - [facility] [address] [place] [phone] 12/06/2024 17:54:48 12/07/2024 00:43:07 Aspiration pneumonia [id number] J69.0 Evaluation in the field was performed by my industrial millwright colleague, as noted above, I provided real-time direction and supervisio n for this visit. The evaluation revealed a 34-year-ol d male with a history of traumatic brain injury, G-tube dependency , history of pulmonary embolism (on long-term anticoagul ation), and wheelchair dependence . The patient? s mother called to request an evaluation for fever and cough. The mother and sister reported that he felt warm to the touch, although no temperatur e was measured. He has been receiving Tylenol for symptom relief. The cough is non-produc tive but described as congested. The mother has been administer ing Albuterol nebulizati ons every 6 hours today.The patient has a history of hospital admission 4 months ago for sepsis and aspiration pneumonia. He is currently fed via G-tube with adequate fluid and nutritiona l intake per family report. No concerns were noted regarding darker or foul-smell ing urine. The family believes this presentati on is consistent with his prior episodes of aspiration pneumonia. Vital Signs: Stable. SpO2 99% on room air, T: 99.2??F.Ex am: AAO,, NAD. Gin Pole Operator reports sonorous lung sounds with rhonchi noted on auscultati on; no wheezing appreciate d.Testing: COVID and Flu tests are negative.A llergies: Reviewed. Impression :Possible aspiration pneumonia. Plan:-Pres cribed Augmentin 500 mg via G-tube, to be administer ed three times daily for 7 days.-Fami ly advised to continue Albuterol nebulizer every 4-6 hours as needed for congestion and respirator y symptoms.R x for Normal saline nebulizers twice daily, to be given after Albuterol treatments , to aid in thinning secretions was sent to his pharmacy .-Family was advised to increase fluid intake via G-tube to help maintain hydration and further thin respirator y secretions .-Continue Tylenol 1 gram every 8 hours as needed for fever or pain.-Red flags ( e.g difficulty breathing, persistent or worsening fever, new or worsening symptoms) were thoroughly discussed with the family, with instructio ns to seek immediate medical care if they occur. Primary care, consider__ _ Dispositio n: We discussed the diagnostic uncertaint y of home visits and the risk associated with this. In this case, the patient and I felt this to be an acceptable and reasonable amount of risk given the benefit of avoiding an ED visit. We discussed the need to seek care urgently/e mergently in the setting of any new or worsening serious symptoms, particular ly increased difficulty breathing, worsening fever, altered mental status, vomiting, or any concerning symptoms . Health Concerns Section Related Observation LastModified by Organization Detai ls LastModified Time None Recorded Concern Status LastModified by Organization Details LastModified Time None Recorded Advance Directives Directive None Recorded Payers Encounter Date Sequence Insurance Name Policy Number Policy Bravo Covered Member ID Bravo Member ID Guarantor Name 05/17/2023 [facility] ON OR AFTER 2023 - DUAL ELIGIBLE - GROUP HOME OPTIONS AND ONE CARE (MEDICARE REPLACEMENT/ADV ANTAGE - HMO) Kike Matson [id number] Kike Matson 07/03/2023 1 [facility] [employer] DOS ON OR AFTER 2023 - DUAL ELIGIBLE - GROUP HOME OPTIONS AND ONE CARE (MEDICARE REPLACEMENT/ADV ANTAGE - HMO) Kike Matson [id number] Kike Matson 12/06/2024 1 [facility] [employer] - DOS ON OR AFTER 2023 - DUAL ELIGIBLE - GROUP HOME OPTIONS AND ONE CARE (MEDICARE REPLACEMENT/ADV ANTAGE - HMO) Kike Matson [id number] Kike Alex Dano Notes Date Note Type Note Provider Name and Address Organization Details Recorded Time 05/17/2023 text/html HPI: Member's caregiver is reporting wheezing and congestion. PMH :Chronic brain injury, G tube dependent , History of PE , half-way use of anticoagulants , wheelchair bound ..................... ..................... ..................... ..................... ..................... ..................... ............... CRC Nursing Assessment: Comments: CRC RN did not require any additional information to process this visit. ..................... ..................... ..................... ..................... ..................... ..................... ............... Gin Pole Operator Note From Donovan Rodrigues: pt's caregiver requesting visit for possible difficulty breathing upon arrival director medicare sales and pt's sister on scene, pt was [...] Pt appears well. vitals within normal limits. [facility] [place] contacted, [facility] [place] recommends the pt's caregivers keep a close watch over the pt and if he started to develop worsening symptoms to f/u with [facility] or PCP. Family educated on s/s warranting a 911 call/trip to the hospital. Gin Pole Operator Allergies: Latex ..................... ..................... ..................... ..................... ..................... ..................... ............... Disposition: Fulfilled Destin Martinez MD [address] [place] [address],[address], [place], [phone], [employer] 05/17/2023 15:54:33 07/03/2023 text/html CRC Nursing Assessment: Patient Reports: Cough Chief Complaints: Cough PMH: Para or Quadraplegia, COPD/Asthma Allergies: Latex Comments: Mom calling on behalf of member with request for [facility] visit for eval cough since this am. Deny fever/chills Verify name/- ..................... ..................... ..................... ..................... ..................... ..................... ............... Gin Pole Operator Note From Faisal Shah: Dispatched to the [...] Red flags discussed. ALL times are approx. ..................... ..................... ..................... ..................... ..................... ..................... ............... Disposition: Fulfilled Felicity Juarez MD [address] [place] [address],[address], [place], [phone], [employer] 07/03/2023 23:04:38 12/06/2024 text/html [facility] Nurse Triage Notes (Zina Sarabia - RN): Reason For Request: PT is experiencing cold symptoms, fever present Chief Complaints: Cough, Fever/chills PMH: Para or Quadriplegia, COPD/Asthma PMH Reviewed at 12/06/2024 - :32 Allergies Reviewed at 12/06/2024 - 12:32 Comments: Mother called to request visit for fever and cough. [place] hot to touch, temp was not taken. Was given Tylenol. Cough is non-productive and sounds congested. Patient is non- verbal. Does not appear short of breath. Education provided on the response time and the member was advised to monitor reported s/s and seek emergency treatment if needed. Member to create a list of Medication allergies and Past medical history for responding medic. ..................... ..................... ..................... ..................... ..................... ..................... ............... Gin Pole Operator Note From Quentin Beckett: [facility] visit for male pt. Pt presents in wheelchair with family present. Pt sustained TBI and is largely non verbal so sister and mother provided information. Family reports pt's skin felt hot today but they did not get a temperature. Pt has also had non productive cough. Hospital admission 4 months ago for sepsis and aspiration pneumonia. Pt is fed via g tube with good fluid and food intake reported. No concerns with darker or foul smelling urine. Family does feel this presentation is consistent with his past aspiration pneumonia. Pt swabbed for flu and covid and found to be negative. Some rhonchi noted on auscultation. Consulted with [facility] [place] Dr. Robles. Verified pt's allergies and Rx sent for augmentin and normal saline bullets for nebulizer. Reviewed dosage recommendations for albuterol nebs. Reviewed red flags for ED. Pt education provided. ..................... ..................... ..................... ..................... ..................... ..................... ............... [facility] [place] [place] Consulted: Inocencio Robles ..................... ..................... ..................... ..................... ..................... ..................... ............... Disposition: Fulfilled INOCENCIO ROBLES MD [address] [place] [address],[address], [place], [phone], [employer] [employer] [facility] [employer] 12/06/2024 22:11:26
== END 2025-01-09 13:57 | disposition home or self-care (01) ==
PROVIDERS: PCP Physician Assistant; Visit Provider Physician Assistant
DX: J69.0 Pneumonitis due to inhalation of food and vomit (principal); G82.50 Quadriplegia, unspecified; G40.909 Epilepsy, unspecified, not intractable, without status epilepticus; S06.9X9D Unspecified intracranial injury with loss of consciousness of unspecified duration, subsequent encounter; I26.99 Other pulmonary embolism without acute cor pulmonale; A04.72 Enterocolitis due to Clostridium difficile, not specified as recurrent

== ENCOUNTER 2025-01-09 13:25 | Outpatient (REF) | payer OTHER, SELFPAY ==
--- NOTE | ~2025-01-09 | XR_ITS ---
CLINICAL HISTORY: J69.0 - Pneumonitis due to inhalation of food and vomit 2 view chest x-ray Comparison: None Findings: Moderate diffuse reticulonodular pulmonary opacity. Heart size is normal. No acute fracture. IMPRESSION: Moderate atypical pneumonia. This document has been electronically signed by: Caridad Segura MD on 01/09/2025 18:39:59
--- OUTSIDE RECORDS SUMMARY | 2025-01-09 14:18 | XMS_ITS | Clinical Summary ---
Author Organization [facility] Address [id number] [place] [phone] Care Team Providers Care Purchasing Engineer Name Role Phone Martir Espino Primary Care Provider Surgical History Surgery Date Site/Laterality Comments OTHER SURGICAL HISTORY PROCEDURE: CA UNLISTED MUSCULOSKELETAL PROCEDURE HEAD OTHER SURGICAL HISTORY PROCEDURE: CA GASTRIC INTUBATION DX & ASPIRATJ MULTIPLE SPEC Medical History Medical History Date Comments TBI (traumatic brain injury) (CMS/HCC) DX:TBI (traumatic brain injury) (FORM[facility]) Social History Tobacco Use Types Packs/Day Years [...] age to complete this topic Care Teams Purchasing Engineer Relationship Specialty Start Date End Date Martir Espino PA PCP - General Internal Medicine 10/16/19
[2025-01-09 15:00] LABS: Hematocrit 53.3 % (42.0-52.0); Hemoglobin 17.9 g/dl (14.0-18.0); Mean Corpuscular HGB Conc 33.6 g/dl (31.0-36.0); Mean Corpuscular Hemoglobin 33.3 pg (27.0-33.0); Mean Corpuscular Volume 99.3 fL (80.0-98.0); Red Blood Count 5.37 X10*6/uL (4.60-5.80); Red Cell Distribution Width 13.5 % (11.0-16.0); White Blood Count 5.4 X10*3/uL (4.8-10.8)
[2025-01-09 15:17] LABS: Mean Platelet Volume 12.9 fL (9.4-12.4); Platelet Count 87 X10*3/uL (160-400)
[2025-01-09 15:51] LABS: Alanine Aminotransferase 75 U/L (0-40); Albumin Level 3.9 g/dL (3.5-5.0); Alkaline Phosphatase 152 U/L (39-117); Anion Gap 11 (12-20); Aspartate Amino Transferase 55 U/L (5-37); Bilirubin Direct 0.1 mg/dL (0.0-0.5); Bilirubin Total 0.3 mg/dL (0.0-1.0); Blood Urea Nitrogen 10 mg/dL (9-16); Calcium 9.5 mg/dL (8.4-10.2); Carbon Dioxide 31 mmol/L (22-29); Chloride 102 mmol/L (96-108); Estimated Glomerular Filt Rate > 60; Glucose Random 105 mg/dL (60-115); Potassium 3.4 mmol/L (3.3-5.1); Sodium 141 mmol/L (135-145); Total Protein 8.2 g/dL (6.5-8.0)
== END 2025-01-09 13:26 | disposition home or self-care (01) ==
LOC: HO.XRAY 13:25
PROVIDERS: PCP Physician Assistant; Visit Provider Physician Assistant
DX: J69.0 Pneumonitis due to inhalation of food and vomit (principal); G82.50 Quadriplegia, unspecified; G40.909 Epilepsy, unspecified, not intractable, without status epilepticus; S06.9X9D Unspecified intracranial injury with loss of consciousness of unspecified duration, subsequent encounter; I26.99 Other pulmonary embolism without acute cor pulmonale; A04.72 Enterocolitis due to Clostridium difficile, not specified as recurrent; Z79.01 Long term (current) use of anticoagulants; D75.1 Secondary polycythemia; R74.8 Abnormal levels of other serum enzymes
CPT/HCPCS: 36415; 71046; 80048; 80076; 85027; 96127; 99212

== ENCOUNTER → 2025-01-09 14:27 | Outpatient (BNV) | payer OTHER, SELFPAY | PROVIDERS: PCP Physician Assistant; Visit Provider Radiology Diagnostic Radiology | DX: J69.0 Pneumonitis due to inhalation of food and vomit (principal) | CPT/HCPCS: 71046 ==

== ENCOUNTER 2025-02-21 14:58 | Outpatient (AMB) | payer OTHER, SELFPAY ==
--- NOTE | 2025-02-21 14:58 | A.OFFVIS_ITS ---
Intake Visit Reasons: 3 mth follow up -G-tube change 18F Intake Note: Office procedure: 3 month follow-up G-tube change 18F. Pt c/o: here for g tube changes Product Examiner Required: No Allergies latex [LATEX] Allergy (Intermediate, Verified 02/21/25 15:12) HIVES strawberry [STRAWBERRY] Allergy (Intermediate, Verified 02/21/25 15:12) HIVES Medication List - Last Reconciled 02/21/25 by Souleymane Roberts MD [adult diapers As directed] albuterol sulfate 2.5 mg (3 mL) inhalation .4 times a day PRN 90 days amantadine HCl 200 mg (20 mL) PO BID 30 days disposable gloves As directed [incontinence wipes As directed] ketoconazole 2% 1 appl topical DAILY 15 days lactose-reduced food with fibr 0.07 gram-1.5 kcal/mL (Isosource 1.5 Matthew) 1 ea feeding tube DAILY 30 days lansoprazole 15 mg PO DAILY levetiracetam 750 mg PO DAILY PRN loperamide (Anti-Diarrheal (loperamide)) 2 mg PO Q6H 7 days methylphenidate HCl 1 mg PO BID metronidazole 500 mg PO Q8H 10 days miscellaneous medical supply 1 ea miscellaneous .PRN 99 days miscellaneous medical supply 1 ea miscellaneous BID 30 days miscellaneous medical supply 1 ea miscellaneous QID 30 days miscellaneous medical supply 1 ea miscellaneous DAILY 99 days miscellaneous medical supply 1 ea miscellaneous .nightly 90 days miscellaneous medical supply 1 ea miscellaneous QID 30 days miscellaneous medical supply 1 ea miscellaneous DAILY 99 days nebulizer and compressor (Portable Nebulizer System) As directed Portable Suction Machine w/tubing,canister&filter (Suction machine w/tubing, canister and filter) As directed rivaroxaban (Xarelto) 10 mg PO DAILY 90 days underpads ([employer]nites Bed Mats) As directed HPI Comments Details: Kike Matson returns to the office for G-tube change.? The tube is been functioning well with no apparent skin changes. No leakage is been identified. [facility] Medical History Neurogenic bladder Asthma Quadriparesis TBI (traumatic brain injury) History of pulmonary embolism Surgical History History of gastrostomy (06/02/20) History of throat surgery (02/2019) History of brain surgery Family History Mother Interstitial lung disease Father Esophageal cancer DMII (diabetes mellitus, type 2) Social History Household Members: Family Housing: House Alcohol intake: never Patient Tobacco Use Status: Former Tobacco user e-Cigarette/Vaping Use: Never Used Second Hand Smoke Exposure: Yes service: No Current occupational status: disabled Cognitive needs: No Hearing needs: No Vision needs: No Review of Systems Const Unobtainable due to mental condition Physical Exam Resp Other: breathing comfortably on room air GI Other: soft, nondistended, nontender, gastrostomy tube in the left upper quadrant. No granulation tissue noted surrounding the tube, the surrounding skin is clean and intact. The previous G-tube was removed and a new 18 Kittitian gastrostomy tube inserted immediately. A balloon was filled with 10 mL of saline solution. Sterile dressings were then applied. The patient tolerated the G-tube Inspection: Yes G-tube present Skin Other: Warm and dry, no rash Neuro Other: quadriplegia Extrem Other: quadriplegia General: Yes normal to inspection Assessment & Plan Assessment & Plan (1) Malfunction of gastrostomy tube: Code(s): K94.23 - Gastrostomy malfunction Category: Surgical Plan: Patient returns for G-tube placement. The previous G-tube was removed after deflating the balloon and a new 18 Kittitian nell G-tube was reinserted immediately. The tube was easily inserted and the balloon inflated with 10 cc of sterile water. Sterile dressings were then applied. The patient tolerated the procedure well and was discharged to home in stable condition. He will follow up in 3 months for tube change. Coding Level of Care Code Est Pt Level 3 (84496) Diagnoses Malfunction of gastrostomy tube K94.23
--- OUTSIDE RECORDS SUMMARY | 2025-02-21 16:30 | XMS_ITS | Data Portability ---
Author Organization [facility] [place] [facility] - Formerly [facility] Address [address] [place] [address] Care Team Providers Care Cad Technician Name Role Phone HIM CCA OTHER ASHISH KAISER Primary Care Provider Assessment No assessment recorded. Plan of Treatment Reminders Order Date Submit Date Provider Last Modified By Organization Details Last Modified Time Details Appointments None recorded. Lab rapid SARS CoV 2 Ag, QL IA, respiratory specimen 2024 025 [facility], [address] [place] [address], [id number] 5 18:37:27 rapid flu (A+B) 2024 025 [facility], [address] [place] [address], [id number] 5 18:37:32 rapid flu (A+B) 2022 023 [facility], [address] [place] [address], [id number] 3 14:24:24 rapid SARS CoV 2 Ag, QL IA, respiratory specimen 2022 023 [facility], [address] [place] [address], [id number] 3 14:24:24 Referral None recorded. Procedures None recorded. Surgeries None recorded. Imaging None recorded. Medication Orders Augmentin 125 mg-31.25 mg/5 mL oral suspension 2024 025 [facility], [address] [place] [address], [phone], 5 18:21:19 sodium chloride 0.9 % for nebulizatio n 2024 025 [facility], [address] [place] [address], [phone], 18:21:20 Patient TargetsNo targets recorded. Patient InstructionsNo instructions recorded. Reason for Referral None Reported. Results Created Date Observation Date Name Description Value Unit Range Abnormal Flag Note LastModifiedBy Organization Detail LastModifiedTime 05/17/2005/17/2023 rapid SARS CoV 2 Ag, QL IA, respi rator y speci men rapid SARS CoV 2 Ag, QL IA, respiratory specimen negati ve Not Available [facility] ed [address] [place] [address], [phone], 05/17/2023 14:24:00 05/17/20 23 05/17/2023 rapid flu (A+B) Flu negati ve Not Available [facility] ed [address] [place] [address], [id number], 05/17/2023 14:23:56 12/06/19 25 12/06/2024 rapid flu (A+B) Flu negati ve Not Available [facility] ed [address] [place] [address], [id number], 12/06/2024 18:24:30 12/06/19 25 12/06/2024 rapid SARS CoV 2 Ag, QL IA, respi rator y speci men rapid SARS CoV 2 Ag, QL IA, respiratory specimen negati ve Not Available [facility] ed [address] [place] [address], [phone], 12/06/2024 18:24:18 Result Notes None recorded. Medical Equipment None Reported. Allergies Allergen ID Allergen Name Allergen Category Reaction Reaction Severity Criticality Documentation Date Start Date Code Code System Note Provider Name and Address Organization Details Recorded Time 7073 latex environme nt,medica tion Not available Not available Not available 09/18/2024 28662 91 RxNorm Not Available [facility] - production [...] Address Organization Details Last Updated DateTime 3 59988.5 6 g 18 /min 98 % 98 % 96.8 [degF] 70 /min 96.8 [degF] 18 /min 71620.5 6 g 98 % 98 % 70 /min 138 mm[Hg] 94 mm[Hg] 138 mm[Hg] 94 mm[Hg] Not Available [employer] 3 14:15:11 Date Recorded Body temperature Respiratory rate Oxygen saturation Oxygen saturation in Arterial blood by Pulse oximetry Heart rate Systolic blood pressure Diastolic blood pressure Provider Name and Address Organization Details Last Updated DateTime 3 97.9 [degF] 16 /min 97 % 97 % 84 /min 132 mm[Hg] 76 mm[Hg] Not Available [employer] 3 21:35:01 Date Recorded Body weight Body height Respiratory rate Body temperature Heart rate Oxygen saturation Oxygen saturation in Arterial blood by Pulse oximetry Systolic blood pressure Diastolic blood pressure Provider Name and Address Organization Details Last Updated DateTime 5 76000.2 8 g 172.72 cm 18 /min 99.2 [degF] 90 /min 99 % 99 % 129 mm[Hg] 91 mm[Hg] Not Available [employer] 5 17:57:53 Social History None recorded. Functional Status None recorded. Mental Status None recorded. Family History Nothing Reported. Medical History No medical history recorded. Past Encounters Encounter ID Performer Location Encounter Start Date Encounter Closed Date Diagnosis/Indication Diagnosis SNOMED-CT Code Diagnosis ICD10 Code Diagnosis Note [id number] Destin Martinez MD [facility] - [facility] [address] [place] [address] 05/17/2023 13:54:34 05/18/2023 08:45:23 Wheeze - rhonchi 85348057 R09.89 Subwarehouse Supervisor reports sonorous lung sounds which a difficult to interpret. Vital signs are reviewed and unremarkab le. Flu and COVID negative. Possible aspiration event? Family follows patiet closely, does not think that he needs hospital evaluation for now. Will closely observe at home with a low threshold to seek further medical care. Recommende d PCP follow-up within the week. [id number] Felicity Juarez MD Main - [facility] [address] [place] [phone] 07/03/2023 21:34:59 07/05/2023 15:35:52 Cough 46241796 R05.9 32 yo M developed isolated coughing fit today (expectora quita clear sputum) from which he has recovered and is back to baseline. has no w/r/r, no residual dyspnea or MORA. Exam is unremarkab le. No interventi on is indicated. reviewed warning signs/sx, pt and outboard motor assembler agree with plan. [id number] INOCENCIO ROBLES MD Main - [facility] [address] [place] [phone] 12/06/2024 17:54:48 12/07/2024 00:43:07 Aspiration pneumonia 982938655 J69.0 Evaluation in the field was performed by my outboard motor assembler colleague, as noted above, I provided real-time [...] room air, T: 99.2??F.Ex am: AAO,, NAD. Subwarehouse Supervisor reports sonorous lung sounds with rhonchi noted [...] Bravo Member ID Guarantor Name 05/17/2023 1 [facility] [employer] - DOS ON OR AFTER 2023 - DUAL ELIGIBLE - SNF OPTIONS AND ONE CARE (MEDICARE REPLACEMENT/ADV ANTAGE - HMO) Kike Matson [id number] Kike Matson 07/03/2023 1 [facility] [place] - DOS ON OR AFTER 2023 - DUAL ELIGIBLE - SNF OPTIONS AND ONE CARE (MEDICARE REPLACEMENT/ADV ANTAGE - HMO) Kike Matson [id number] Kike Matson 12/06/2024 1 [facility] [employer] - DOS ON OR AFTER 2023 - DUAL ELIGIBLE - SNF OPTIONS AND ONE CARE (MEDICARE REPLACEMENT/ADV ANTAGE - HMO) Kike Matson [id number] Kike Matson Notes Date Note Type Note Provider Name and Address Organization Details Recorded Time 05/17/2023 text/html HPI: Member's caregiver is reporting wheezing and congestion. 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 ..................... ..................... ..................... ..................... ..................... ............... CRC Nursing Assessment: Comments: CRC RN did not require any additional information to process this visit. ..................... ..................... ..................... ..................... ..................... ..................... ............... Subwarehouse Supervisor Note From Donovan Rodrigues: pt's caregiver requesting visit for possible difficulty breathing upon arrival healthcare administration internship and pt's sister on scene, pt was [...] Pt appears well. vitals within normal limits. [facility] contacted, [facility] recommends the pt's caregivers keep a close watch over the pt and if he started to develop worsening symptoms to f/u with [facility] or PCP. Family educated on s/s warranting a 911 call/trip to the hospital. Subwarehouse Supervisor Allergies: Latex ..................... ..................... ..................... ..................... ..................... ..................... ............... Disposition: Fulfilled Destin Martinez MD [address] [place] [address],[address], [place], [phone], [facility] General Assembly 05/17/2023 15:54:33 07/03/2023 text/html CRC Nursing Assessment: Patient Reports: Cough Chief Complaints: Cough PMH: Para or Quadraplegia, COPD/Asthma Allergies: Latex Comments: Mom calling on behalf of member with request for [facility] visit for eval cough since this am. Deny fever/chills Verify name/- ..................... ..................... ..................... ..................... ..................... ..................... ............... Subwarehouse Supervisor Note From Faisal Shah: Dispatched to the [...] ..................... ............... Disposition: Fulfilled Felicity Juarez MD [address] [place] [address],[address], [place], [phone], [employer] General Assembly 07/03/2023 23:04:38 12/06/2024 text/html [facility] Nurse Triage Notes (Zina Sarabia - RN): Reason For Request: PT is experiencing cold symptoms, fever present Chief Complaints: Cough, Fever/chills PMH: Para or Quadriplegia, COPD/Asthma PMH Reviewed at 12/06/2024 - 12:32 Allergies Reviewed at 12/06/2024 - 12:32 Comments: Mother called to request visit for fever and cough. [place] hot to touch, temp was not taken. [...] ..................... ..................... ..................... ..................... ..................... ..................... ............... Subwarehouse Supervisor Note From Quentin Beckett: [facility] visit for male pt. Pt presents [...] Some rhonchi noted on auscultation. Consulted with [facility] Dr. Robles. Verified pt's allergies and Rx sent for augmentin and normal saline bullets for nebulizer. Reviewed dosage recommendations for albuterol nebs. Reviewed red flags for ED. Pt education provided. ..................... ..................... ..................... ..................... ..................... ..................... ............... [facility] Consulted: Inocencio Robles ..................... ..................... ..................... ..................... ..................... ..................... ............... Disposition: Dixie RBOLES MD [address] [place] [address],[address], [place], [address], [employer] 12/06/2024 22:11:26
--- OUTSIDE RECORDS SUMMARY | 2025-02-21 16:30 | XMS_ITS | Clinical Summary ---
Author Organization [facility] Address [address] [place] [address] Care Team Providers Care Wrecker Driver Name Role Phone Martir Espino Primary Care Provider Surgical History Surgery Date Site/Laterality Comments OTHER SURGICAL HISTORY PROCEDURE: AK UNLISTED MUSCULOSKELETAL PROCEDURE HEAD OTHER SURGICAL HISTORY PROCEDURE: [place] GASTRIC INTUBATION DX & ASPIRATJ MULTIPLE SPEC Medical History Medical History Date Comments TBI (traumatic brain injury) (CMS/HCC) DX:TBI (traumatic brain injury) ([facility]) Social History Tobacco Use Types Packs/Day Years [...] age to complete this topic Care Teams Wrecker Driver Relationship Specialty Start Date End Date Martir Espino PA PCP - General Internal Medicine 10/16/19
== END 2025-02-21 15:14 | disposition home or self-care (01) ==
PROVIDERS: PCP Physician Assistant; Visit Provider Surgery
DX: K94.23 Gastrostomy malfunction (principal)
CPT/HCPCS: 99213

== ENCOUNTER → 2025-02-21 14:58 | Outpatient (BNVA) | payer OTHER, SELFPAY | PROVIDERS: PCP Physician Assistant; Visit Provider Surgery | DX: K94.23 Gastrostomy malfunction (principal) | CPT/HCPCS: 43762; 99212 ==

== ENCOUNTER 2025-03-29 08:08 | Outpatient (AMB) | payer OTHER, SELFPAY ==
--- OUTSIDE RECORDS SUMMARY | 2025-03-29 08:12 | XMS_ITS | Data Portability ---
Author Organization [place] [facility] Address [address] [place] [address] Care Team Providers Care Wholesale Account Executive Name Role Phone ASHISH KAISER Primary Care Provider ASHISH KAISER Referring Provider Assessment Encounter Date Assessment Date Assessment LastModified by Organization Details LastModified Time 02/07/2025 02/07/2025 Ears were meticulously cleaned bilaterally today with suction. Aides are encouraged to avoid Q-tips in his ears relative to packing the wax in tighter. I have advised them to use a wet washcloth to gently cleanse the wax from the ears. As needed visits are recommended. [email or web address] Not available 02/07/2025 11:15:51 Plan of Treatment Reminders Order Date Submit Date Provider Last Modified By Organization Details Last Modified Time Details Appointments None record ed. Lab None record ed. Referral None record ed. Procedures None record ed. Surgeries None record ed. Imaging None record ed. Medication Orders None record ed. Patient TargetsNo targets recorded. Patient InstructionsNo instructions recorded. Reason for Referral None Reported. Problems Name Problem SNOMED Code Status Onset Date Resolution Date Notes Provider Name and Address Organization Details Recorded Time Impacted cerumen of bilateral ears [id number] 08 Active 2024 BRENDA AKHTAR PA-C [address], [place], [address], [facility] - [facility] 11:15:56 Problem Notes None recorded. Procedures Surgical History Date Name Laterality Status Provider Name and Address Organization Details Recorded Time Cerumen removal without microscope bilat completed BRENDA AKHTAR PA-C [address],[facility] [address], [place], [address], [facility] - [facility] 02/07/2025 11:14:36 Imaging Results None recorded. Procedure Notes None recorded. Medical Equipment None Reported. Allergies Allergen ID Allergen Name Allergen Category Reaction Reaction Severity Criticality Documentation Date Start Date Code Code System Note Provider Name and Address Organization Details Recorded Time 847961 strawberr y allergeni c extract food Not available Not available Not available 02/07/2025 62411 4 RxNorm Ana cutler [place] - [facility] 5 10:57:57 342061 Latex (substanc e) environme nt,medica tion Not available Not available Not available 02/07/2025 07667 8007 SNOMED Ana cutler [place] - [facility] 5 10:58:07 624883 adhesive tape environme nt,medica tion Not available Not available Not available 02/07/2025 88844 UNK Ana cutler [place] - [facility] 10:58:19 Medications Name Sig Start Date Stop Date Status Note LastModified by Organization Details LastModified Time amantadine HCl 50 mg/5 mL oral solution TAKE 20 ML BY MOUTH TWICE DAILY active Not Available Not Available Not Available amantadine HCl 100 mg tablet TAKE 2 TABLETS BY MOUTH TWICE DAILYTAKE IN THE MORNING AND EARLY AFTERNOON active Not Available Not Available No t Available albuterol sulfate 2.5 mg/3 mL (0.083 %) solution for nebulization USE ONE VIAL (3 ML) IN NEBULIZER 4 TIMES DAILY NEEDED FOR SHORTNESS OF BREATH OR WHEEZING active Not Available Not Available Not Available loperamide 2 mg tablet TAKE 1 [...] active Not Available Not Available Not Available Augmentin 125 mg-31.25 mg/5 mL oral [...] Available Not Available N ot Available Vitals None Recorded Social History None recorded. Functional Status None recorded. Mental Status None recorded. Family History Nothing Reported. Medical History Condition Response Anxiety Y Depression Y Stroke Y Asthma Y Past Encounters Encounter ID Performer Location Encounter Start Date Encounter Closed Date Diagnosis/Indication Diagnosis SNOMED-CT Code Diagnosis ICD10 Code Diagnosis Note [id number] BRENDA AKHTAR PA-C [facility] [address] [address] 02/07/2025 10:43:48 02/07/2025 11:02:49 Impacted cerumen of bilateral ears 5010677024 278607 H61.23 Health Concerns Section Related Observation LastModified by Organization Detai ls LastModified Time None Recorded Concern Status LastModified by Organization Details LastModified Time None Recorded Advance Directives Directive None Recorded Payers Insurance Date Sequence Insurance Name Policy Number Policy Bravo Covered Member ID Bravo Member ID Guarantor Name 02/07/2025 1 [facility] - DOS ON OR AFTER 2023 - ONE CARE (MEDICARE REPLACEMENT/ADV ANTAGE - HMO) Kike Matson [id number] Kike Matson Notes Date Note Type Note Provider Name and Address Organization Details Recorded Time 02/07/2025 text/html 34 year old male quadriplegic presents to the office for cerumen removal. He is accompanied by aides. CARL FABIAN MD [address] [place] [address], [place], [address], [place] - [facility] 02/08/2025 08:47:04
--- OUTSIDE RECORDS SUMMARY | 2025-03-29 08:12 | XMS_ITS | Data Portability ---
Author Organization [employer], Hi in - [facility] Address [address] [place] [phone] Care Team Providers Care Food Safety Auditor Name Role Phone HIM CCA OTHER ASHISH KAISER Primary Care Provider Assessment No assessment recorded. Plan of Treatment Reminders Order Date Submit Date Provider Last Modified By Organization Details Last Modified Time Details Appointments None recorded. Lab rapid SARS CoV 2 Ag, QL IA, respiratory specimen 2024 025 [facility], [address] [place] [address], [id number] 5 18:37:27 rapid flu (A+B) 2024 025 [facility], [address] [place] [address], [id number] 5 18:37:32 rapid flu (A+B) 2022 023 [facility], [address] [place] [address], [id number] 3 14:24:24 rapid SARS CoV 2 Ag, QL IA, respiratory specimen 2022 023 [facility], [address] [place] [address], [id number] 3 14:24:24 Referral None recorded. Procedures None recorded. Surgeries None recorded. Imaging None recorded. Medication Orders Augmentin 125 mg-31.25 mg/5 mL oral suspension 2024 025 [facility], [address] [place] [address], [phone], 5 18:21:19 sodium chloride 0.9 % for nebulizatio n 2024 025 [facility], [address] [place] [address], [address], 18:21:20 Patient TargetsNo targets recorded. Patient InstructionsNo instructions recorded. Reason for Referral None Reported. Results Created Date Observation Date Name Description Value Unit Range Abnormal Flag Note LastModifiedBy Organization Detail LastModifiedTime 05/17/2005/17/2023 rapid SARS CoV 2 Ag, QL IA, respi rator y speci men rapid SARS CoV 2 Ag, QL IA, respiratory specimen negati ve Not Available [address], [phone] 05/17/2023 14:24:00 05/17/20 23 05/17/2023 rapid flu (A+B) Flu negati ve Not Available [address], [address] 05/17/2023 14:23:56 12/06/19 25 12/06/2024 rapid flu (A+B) Flu negati ve Not Available [address], [address] 12/06/2024 18:24:30 12/06/19 25 12/06/2024 rapid SARS CoV 2 Ag, QL IA, respi rator y speci men rapid SARS CoV 2 Ag, QL IA, respiratory specimen negati ve Not Available [address], [address] 12/06/2024 18:24:18 Result Notes None recorded. Medical Equipment None Reported. Allergies Allergen ID Allergen Name Allergen Category Reaction Reaction Severity Criticality Documentation Date Start Date Code Code System Note Provider Name and Address Organization Details Recorded Time 7073 latex environme nt,medica tion Not available Not available Not available 09/18/2024 51940 91 RxNorm Not Available [facility] - production [...] Address Organization Details Last Updated DateTime 3 40106.5 6 g 18 /min 98 % 98 % 96.8 [degF] 70 /min 96.8 [degF] 18 /min 09711.5 6 g 98 % 98 % 70 /min 138 mm[Hg] 94 mm[Hg] 138 mm[Hg] 94 mm[Hg] Not Available [employer] - production 3 14:15:11 Date Recorded Body temperature Respiratory rate Oxygen saturation Oxygen saturation in Arterial blood by Pulse oximetry Heart rate Systolic blood pressure Diastolic blood pressure Provider Name and Address Organization Details Last Updated DateTime 3 97.9 [degF] 16 /min 97 % 97 % 84 /min 132 mm[Hg] 76 mm[Hg] Not Available [employer] - [employer] 3 21:35:01 Date Recorded Body weight Body height Respiratory rate Body temperature Heart rate Oxygen saturation Oxygen saturation in Arterial blood by Pulse oximetry Systolic blood pressure Diastolic blood pressure Provider Name and Address Organization Details Last Updated DateTime 5 71140.2 8 g 172.72 cm 18 /min 99.2 [degF] 90 /min 99 % 99 % 129 mm[Hg] 91 mm[Hg] Not Available [employer] 5 17:57:53 Social History None recorded. Functional Status None recorded. Mental Status None recorded. Family History Nothing Reported. Medical History No medical history recorded. Past Encounters Encounter ID Performer Location Encounter Start Date Encounter Closed Date Diagnosis/Indication Diagnosis SNOMED-CT Code Diagnosis ICD10 Code Diagnosis Note [id number] Destin Martinez MD Main - [facility] [address] [place] [phone] 05/17/2023 13:54:34 05/18/2023 08:45:23 Wheeze - rhonchi [id number] R09.89 Welding Process Specialist reports sonorous lung sounds which a difficult to interpret. Vital signs are reviewed and unremarkab le. Flu and COVID negative. Possible aspiration event? Family follows patiet closely, does not think that he needs hospital evaluation for now. Will closely observe at home with a low threshold to seek further medical care. Recommende d PCP follow-up within the week. [id number] Felicity Juarez MD Main - [facility] [address] [place] [phone] 07/03/2023 21:34:59 07/05/2023 15:35:52 Cough 63002175 R05.9 32 yo M developed isolated coughing fit today (expectora quita clear sputum) from which he has recovered and is back to baseline. has no w/r/r, no residual dyspnea or MORA. Exam is unremarkab le. No interventi on is indicated. reviewed warning signs/sx, pt and ornamental plasterer helper agree with plan. [id number] INOCENCIO ROBLES MD Main - [facility] [address] [place] [phone] 12/06/2024 17:54:48 12/07/2024 00:43:07 Aspiration pneumonia [id number] J69.0 Evaluation in the field was performed by my ornamental plasterer helper colleague, as noted above, I provided real-time [...] Stable. SpO2 99% on room air, T: 99.2? ? ?F.Exam: AAO,, NAD. Welding Process Specialist reports sonorous lung sounds with rhonchi noted [...] Member ID Bravo Member ID Guarantor Name 12/06/2024 1 [facility] - DOS ON OR AFTER 2023 - DUAL ELIGIBLE - CORRECTION OPTIONS AND ONE CARE (MEDICARE REPLACEMENT/ADV ANTAGE - HMO) Kike Matson [id number] Kike Matson Notes Date Note Type Note Provider Name and Address Organization Details Recorded Time 05/17/2023 text/html HPI: Member's caregiver is reporting wheezing and congestion. 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 ..................... ..................... ..................... ..................... ..................... ............... CRC Nursing Assessment: Comments: CRC RN did not require any additional information to process this visit. ..................... ..................... ..................... ..................... ..................... ..................... ............... Welding Process Specialist Note From Donovan Rodrigues: pt's caregiver requesting visit for possible difficulty breathing upon arrival childcare director and pt's sister on scene, pt was [...] Pt appears well. vitals within normal limits. [facility] contacted, [facility] recommends the pt's caregivers keep a close watch over the pt and if he started to develop worsening symptoms to f/u with [facility] or PCP. Family educated on s/s warranting a 911 call/trip to the hospital. Welding Process Specialist Allergies: Latex ..................... ..................... ..................... ..................... ..................... ..................... ............... Disposition: Dixie Destin Martinez MD [address], [place], [address], RIVKA Cheema [employer] 05/17/2023 15:54:33 07/03/2023 text/html CRC Nursing Assessment: Patient Reports: Cough Chief Complaints: Cough PMH: Para or Quadraplegia, COPD/Asthma Allergies: Latex Comments: Mom calling on behalf of member with request for [facility] visit for eval cough since this am. Deny fever/chills Verify name/- ..................... ..................... ..................... ..................... ..................... ..................... ............... Welding Process Specialist Note From Faisal Shah: Dispatched to the [...] ..................... ............... Disposition: Fulfilled Felicity Juarez MD [address], [place], [address], [employer] 07/03/2023 23:04:38 12/06/2024 text/html CRC Nurse Triage Notes (Zina Sarabia - RN): Reason For Request: PT is experiencing cold symptoms, fever present Chief Complaints: Cough, Fever/chills PMH: Para or Quadriplegia, COPD/Asthma PMH Reviewed at 12/06/2024:32 Allergies Reviewed at 12/06/2024:32 Comments: Mother called to request visit for fever and cough. Richardson hot to touch, temp was not taken. [...] ..................... ..................... ..................... ..................... ..................... ..................... ............... Welding Process Specialist Note From Quentin Beckett[facility] Pt [facility] in [...] Some rhonchi noted on auscultation. Consulted with [facility] Dr. Robles. Verified pt's allergies and Rx sent for augmentin and normal saline bullets for nebulizer. Reviewed dosage recommendations for albuterol nebs. Reviewed red flags for ED. Pt education provided. ..................... ..................... ..................... ..................... ..................... ..................... ............... [facility] Consulted: Inocencio Robles ..................... ..................... ..................... ..................... ..................... ..................... ............... Disposition: Dixie ROBLES MD [address], [place], [address], RIVKA - [employer] 12/06/2024 22:11:26
--- OUTSIDE RECORDS SUMMARY | 2025-03-29 08:12 | XMS_ITS | Clinical Summary ---
Author Organization [facility] Address [address] [place] [address] Care Team Providers Care Spooler Name Role Phone Martir Espino Primary Care Provider Surgical History Surgery Date Site/Laterality Comments OTHER SURGICAL HISTORY PROCEDURE: [place] UNLISTED MUSCULOSKELETAL PROCEDURE HEAD OTHER SURGICAL HISTORY PROCEDURE: [place] GASTRIC INTUBATION DX & ASPIRATJ MULTIPLE SPEC Medical History Medical History Date Comments TBI (traumatic brain injury) ([facility] V24, CMS/HCC V28) DX:TBI (traumatic brain inju ry) ([facility]) Social History Tobacco Use Types Packs/Day Years [...] Vaccine (2023-2 5 season) 2024 Influenza Vaccine (Season Ended) 2025 HIB Vaccines Aged Out No longer eligi [...] age to complete this topic Meningococcal B Vaccine Aged Out No l onger eligible based on patient's age to complete [...] age to complete this topic Care Teams Spooler Relationship Specialty Start Date End Date Martir Espino PA PCP - General Internal Medicine 10/16/19
--- NOTE | 2025-03-29 08:13 | MHC.PC.OV ---
Vital Signs 03/29/25 08:15 Height 5 ft 9 in BMI Reason not done Patient refused/unable BP 120/72 Blood Pressure Location Rt brachial Position Sitting Pulse 68 Pulse Source Pulse Oximeter Temp 96.6 F L Temp Source Temporal Artery Scan Pulse Oximetry (%) 94 Oxygen Delivery Method Room Air Intake Visit Reasons: [facility] 03/21 seizure/pneumonia Intake Note: Patient is here for hospital discharge follow up. Patient was discharged from [facility] on 03/22/25. Heart Coordinator Required: No Informatics Physician Liaison: Present Accompanied by: Mother Allergies latex [LATEX] Allergy (Intermediate, Verified 03/29/25 08:15) HIVES strawberry [STRAWBERRY] Allergy (Intermediate, Verified 03/29/25 08:15) HIVES Tobacco use date assessed: 03/29/25 Dental Screening Dental Screen Date: 03/29/25 Did you have a dental visit in the last 12 months?: No Did you have a dental problem in the last 6 months where you did not have access to dental care?: No Was dental information given to patient?: No HPI HPI Comments History of Present Illness Details 34 y/o Male patient who presents to the clinic for HDF. He was admitted at [facility] on 03/13 - 03/21 for Pneumonia and breakthrough Seizure. He completed his Abx course. His Keppra Dose was increased to 1 gm BID. No concerns today. [facility] Medical History Neurogenic bladder Asthma Quadriparesis TBI (traumatic brain injury) History of pulmonary embolism Surgical History History of gastrostomy (06/02/20) History of throat surgery (02/2019) History of brain surgery Family History (Updated 03/29/25 @ 08:14 by KRYSTAL Ovalle) Mother Interstitial lung disease Father Esophageal cancer DMII (diabetes mellitus, type 2) Social History Household Members: Family Housing: House Alcohol intake: never Patient Tobacco Use Status: Former Tobacco user e-Cigarette/Vaping Use: Never Used Second Hand Smoke Exposure: Yes service: No Current occupational status: disabled Cognitive needs: Yes (big wheelchair) Hearing needs: No Vision needs: No Questionnaire Thrive Questionnaire Date Thrive assessed: 12/06/24 I am a: Patient What is your living situation today?: I have a steady place to live Within the past 12 months, did the food you bought not last and you didn't have the money to get more?: Never true Within the past 12 months, did you worry whether your food would run out before you got money to buy more?: Never true Do you have trouble paying for medicines?: No Do you have trouble getting transportation to medical appointments?: No Do you have trouble paying your heating and electricity bill?: No Do you have trouble taking care of your child, family member or friend?: No Do you have trouble with day-to-day activities such as bathing, preparing meals, shopping, managing finances, etc.?: Yes Are you currently unemployed and looking for a job?: No Are you interested in more education?: No Please select the resources that you would like help with: Care for elder or disabled Currently or been in a relationship where the following occur: No concerns reported THRIVE Score: 0 OMAR-7 AMB Questionnaire OMAR-7 Date OMAR - 7 assessed: 01/09/25 Source: Developed by Drs. Josué Amin, Lala Bah, Delio Samuel and colleagues, with an educational eduin from [facility]. Review of Systems Const All systems reviewed & are unremarkable except as noted in HPI and below Physical exam (Primary Care) Vital Signs: Last Vital Signs Temp 96.6 F L 03/29/25 08:15 Pulse 68 03/29/25 08:15 BP 120/72 03/29/25 08:15 Pulse Ox 94 03/29/25 08:15 Oxygen Delivery Method Room Air 03/29/25 08:15 Tobacco/Smoking Status: Tobacco use Status Tobacco use date assessed 03/29/25 03/29/25 08:26 Patient Tobacco Use Status Former Tobacco user 03/29/25 08:14 e-Cigarette/Vaping Use Never Used 03/29/25 08:14 Thrive Assessment: Date of Thrive Assessment Date Thrive assessed 12/06/24 03/29/25 08:14 Currently or been in a relationship where the following occur: No concerns reported Const General: no acute distress Limitations: wheelchair Resp Effort & Inspection: normal respiratory effort Auscultation: clear to auscultation bilaterally, no crackles, no rales, no rhonchi and no wheezes Cardio Heart sounds: S1 normal heart sound present and S2 normal heart sound present Coding Level of Care Code Est Pt Level 4 (63999) Diagnoses Aspiration pneumonia of right lower lobe, unspecified aspiration pneumonia type J69.0 Aspiration pneumonia type: unspecified Laterality: right Lung location: lower lobe of lung Seizure disorder G40.909 Time Spent (min) 20 Assessment & Plan Assessment & Plan (1) Aspiration pneumonia: Code(s): J69.0 - Pneumonitis due to inhalation of food and vomit Category: Medical Qualifiers: Aspiration pneumonia type: unspecified Laterality: right Lung location: lower lobe of lung Qualified Code(s): J69.0 - Pneumonitis due to inhalation of food and vomit Plan: Resolved. (2) Seizure disorder: Code(s): G40.909 - Epilepsy, unspecified, not intractable, without status epilepticus Category: Medical Plan: Stable. Continue on Keppra as ordered.
[2025-03-29 08:15] VITALS: BP 120/72; PULSE 68; TEMP 35.9; O2SAT 94
== END 2025-03-29 08:37 | disposition home or self-care (01) ==
LOC: HO.HMCH 08:08
PROVIDERS: PCP Physician Assistant; Visit Provider Nurse Practitioner Family
DX: J69.0 Pneumonitis due to inhalation of food and vomit (principal); G40.909 Epilepsy, unspecified, not intractable, without status epilepticus

== ENCOUNTER → 2025-03-29 08:08 | Outpatient (BNVA) | payer OTHER, SELFPAY | PROVIDERS: PCP Physician Assistant; Visit Provider Nurse Practitioner Family | DX: G40.909 Epilepsy, unspecified, not intractable, without status epilepticus (principal); Z87.01 Personal history of pneumonia (recurrent) | CPT/HCPCS: 99212 ==

== ENCOUNTER 2025-05-30 15:27 | Outpatient (AMB) | payer OTHER, SELFPAY ==
--- NOTE | 2025-05-30 15:28 | A.OFFVIS_ITS ---
Vital Signs 05/30/25 15:39 Height 5 ft 9 in BMI Reason not done Palliative Care Patient BP not taken reason Medical Reason Intake Visit Reasons: 3 mth follow up -G-tube change 18F Intake Note: Patient is seen in office fro 3 month follow up visit, G-tube change. Pt c/o: here for g tube change, no changes since last visit Senior Marketing Analyst Required: No Accompanied by: Self / Same As Patient Allergies latex (LATEX) Allergy (Intermediate, Verified 03/29/25 08:15) HIVES strawberry (STRAWBERRY) Allergy (Intermediate, Verified 03/29/25 08:15) HIVES HPI Comments Details: Kike Matson returns to the office for G-tube change.? The tube is been functioning well with no apparent skin changes. No leakage is been identified. [facility] Medical History Neurogenic bladder Asthma Quadriparesis TBI (traumatic brain injury) History of pulmonary embolism Surgical History History of gastrostomy (06/02/20) History of throat surgery (02/2019) History of brain surgery Family History Mother Interstitial lung disease Father Esophageal cancer DMII (diabetes mellitus, type 2) Social History Household Members: Family Housing: House Alcohol intake: never Patient Tobacco Use Status: Former Tobacco user e-Cigarette/Vaping Use: Never Used Second Hand Smoke Exposure: Yes service: No Current occupational status: disabled Cognitive needs: Yes (big wheelchair) Hearing needs: No Vision needs: No Review of Systems Const Unobtainable due to mental condition Physical Exam Resp Other: breathing comfortably on room air GI Other: soft, nondistended, nontender, gastrostomy tube in the left upper quadrant. No granulation tissue noted surrounding the tube, the surrounding skin is clean and intact. The previous G-tube was removed and a new 18 Polish gastrostomy tube inserted immediately. A balloon was filled with 10 mL of saline solution. Sterile dressings were then applied. The patient tolerated the G-tube Inspection: Yes G-tube present Skin Other: Warm and dry, no rash Neuro Other: quadriplegia Extrem Other: quadriplegia General: Yes normal to inspection Assessment & Plan Assessment & Plan (1) Malfunction of gastrostomy tube: Code(s): K94.23 - Gastrostomy malfunction Category: Surgical Plan: Patient returns for G-tube placement. The previous G-tube was removed after deflating the balloon and a new 18 Polish nell G-tube was reinserted immediately. The tube was easily inserted and the balloon inflated with 10 cc of sterile water. Sterile dressings were then applied. The patient tolerated the procedure well and was discharged to home in stable condition. He will follow up in 3 months for tube change. Coding Level of Care Code Est Pt Level 3 (50259) Diagnoses Malfunction of gastrostomy tube K94.23
--- OUTSIDE RECORDS SUMMARY | 2025-05-30 15:30 | XMS_ITS | Clinical Summary ---
Author Organization [facility] Address [address] [place] [phone] Care Team Providers Care Digester Name Role Phone Martir Espino Primary Care Provider [phone] Surgical History Surgery Date Site/Laterality Comments OTHER SURGICAL HISTORY PROCEDURE: [place] UNLISTED MUSCULOSKELETAL PROCEDURE HEAD OTHER SURGICAL HISTORY PROCEDURE: [place] GASTRIC INTUBATION DX & ASPIRATJ MULTIPLE SPEC Medical History Medical History Date Comments TBI (traumatic brain injury) ([facility] V24, CMS/HCC V28) DX:TBI (traumatic brain inju ry) ([facility]) Social History Tobacco Use Types Packs/Day Years [...] (2023-2 5 season) 2024 Influenza Vaccine (#1) 2025 HIB Vaccines Aged Out No longer [...] 5 Years) and At-Risk Patients (6 to 49 Years) Aged Out No longer eligible b ased on patient's age to complete this topic RSV Immunization Patients Un aleta 20 months Aged Out No longer eligible b ased on patient's age to complete this topic Varicella Vaccines Aged Out No longer eligible based on patient's age to complete this topic Care Teams Digester Relationship Specialty Start Date End Date Martir Espino PA PCP - General Internal Medicine 10/16/19
--- OUTSIDE RECORDS SUMMARY | 2025-05-30 15:30 | XMS_ITS | Data Portability ---
Author Organization [place] [facility], [facility] Address [address] [address] [place] [address] Care Team Providers Care Nurse First Aid Name Role Phone ASHISH KAISER Primary Care Provider [phone] ASHISH KAISER Referring Provider Assessment Encounter Date [...] Recorded Time Impacted cerumen of bilateral ears [id number] 08 Active 2024 BRENDA AKHTAR PA-C [address] [facility] [address], [place], [address], [place] [facility] 11:15:56 Problem Notes None recorded. Procedures Surgical History Date Name Laterality Status Provider Name and Address Organization Details Recorded Time Cerumen removal without microscope bilat completed BRENDA AKHTAR PA-C [address] [facility] [address], [place], [address], [place] [facility] 02/07/2025 11:14:36 Imaging Results None recorded. Procedure Notes None recorded. Medical Equipment None Reported. Allergies Allergen ID Allergen Name Allergen Category Reaction Reaction Severity Criticality Documentation Date Start Date Code Code System Note Provider Name and Address Organization Details Recorded Time 050420 strawberr y allergeni c extract food Not available Not available Not available 02/07/2025 85159 4 RxNorm Ana cutler [place] [facility] 5 10:57:57 883988 Latex (substanc e) environme nt,medica tion Not available Not available Not available 02/07/2025 61250 8007 SNOMED Ana cutler [facility] 5 10:58:07 677522 adhesive tape environme nt,medica tion Not available Not available Not available 02/07/2025 89534 UNK Ana cutler [facility] 5 10:58:19 Medications Name Sig Start Date Stop [...] History Nothing Reported. Medical History Condition Response Stroke Y Anxiety Y Depression Y Asthma Y Past Encounters Encounter ID Performer Location Encounter Start Date Encounter Closed Date Diagnosis/Indication Diagnosis SNOMED-CT Code Diagnosis ICD10 Code Diagnosis Note [id number] BRENDA AKHTAR PA-C [facility] [address] [address] 02/07/2025 10:43:48 02/07/2025 11:02:49 Impacted cerumen of bilateral ears [id number] 708927 H61.23 Health Concerns Section Related Observation LastModified by Organization Detai ls LastModified Time None Recorded Concern Status LastModified by Organization Details LastModified Time None Recorded Advance Directives Directive None Recorded Payers Insurance Date Sequence Insurance Name Policy Number Policy Bravo Covered Member ID Bravo Member ID Guarantor Name 02/07/2025 1 [facility] - DOS ON OR AFTER 2023 - ONE CARE (MEDICARE REPLACEMENT/ADV ANTAGE - HMO) Kike Matson [id number] Kike Matson Notes Date Note Type Note Provider Name and Address Organization Details Recorded Time 02/07/2025 text/html 34 year old male quadriplegic presents to the office for cerumen removal. He is accompanied by aides. CARL FABIAN MD [address] [place] [address], [phone], [place] [facility] 02/08/2025 08:47:04
== END 2025-05-30 15:41 | disposition home or self-care (01) ==
LOC: HO.HGS 15:27
PROVIDERS: PCP Physician Assistant; Visit Provider Surgery
DX: K94.23 Gastrostomy malfunction (principal)
CPT/HCPCS: 99213

== ENCOUNTER → 2025-05-30 15:27 | Outpatient (BNVA) | payer OTHER, SELFPAY | PROVIDERS: PCP Physician Assistant; Visit Provider Surgery | DX: K94.23 Gastrostomy malfunction (principal) | CPT/HCPCS: 99212 ==

== ENCOUNTER 2025-05-31 14:54 | Outpatient (AMB) | payer OTHER, SELFPAY ==
[2025-05-31 14:57] VITALS: BP 128/74; PULSE 78; TEMP 36.1; O2SAT 94
--- NOTE | 2025-05-31 14:57 | A.OFFPC_ITS ---
Vital Signs 05/31/25 14:57 Height 5 ft 9 in BMI Reason not done Patient refused/unable BP 128/74 Blood Pressure Location Rt brachial Position Sitting Pulse 78 Pulse Source Pulse Oximeter Temp 97.0 F Temp Source Temporal Artery Scan Pulse Oximetry (%) 94 Oxygen Delivery Method Room Air Intake Visit Reasons: [facility] 05/08 Accompanied by: Sister Allergies latex (LATEX) Allergy (Intermediate, Verified 05/31/25 15:02) HIVES strawberry (STRAWBERRY) Allergy (Intermediate, Verified 05/31/25 15:02) HIVES Tobacco use date assessed: 03/29/25 Dental Screening Dental Screen Date: 03/29/25 Did you have a dental visit in the last 12 months?: No Did you have a dental problem in the last 6 months where you did not have access to dental care?: No Was dental information given to patient?: Patient declined HPI HPI Comments History of Present Illness Details 34 y/o Female patient who presents to [facility] today for HDF. Patient was admitted at [facility] on 04/28 - 05/08 for an evaluation and treatment of Acute Hypoxic Respiratory Failure secondary to Aspiration Pneumonia. Patient accompanied by family members. Pt non-verbal - family provide information. Medication changes: Keppra was changed to 750 mg in the morning and 1000 mg at Bedtime. Patient was found to be more drowsy during the daytime on Keppra 1000 mg BID. He does follow with Neurology. It was recommended by the hospital to start Scopolamine patch and Ipratropium Neb Solutions to help reduce Gastric secretions. Family Asking for prescription for Chest Oscillating vest to assist with Chest PT. Faxed Prescription to [facility]. [facility] Medical History (Updated 05/31/25 @ 15:27 by Melissa Parikh NP) Aspiration pneumonia due to gastric secretions Neurogenic bladder Asthma Quadriparesis TBI (traumatic brain injury) History of pulmonary embolism Surgical History History of gastrostomy (06/02/20) History of throat surgery (02/2019) History of brain surgery Family History Mother Interstitial lung disease Father Esophageal cancer DMII (diabetes mellitus, type 2) Social History Household Members: Family Housing: House Alcohol intake: never Patient Tobacco Use Status: Former Tobacco user e-Cigarette/Vaping Use: Never Used Second Hand Smoke Exposure: Yes service: No Current occupational status: disabled Cognitive needs: Yes (big wheelchair) Hearing needs: No Vision needs: No Questionnaire PHQ-9 Over the last 2 weeks, how often have you been bothered by any of the following problems? 1. Little interest or pleasure in doing things: not at all 2. Feeling down, depressed, or hopeless: not at all 3. Trouble falling or staying asleep, or sleeping too much: not at all 4. Feeling tired or having little energy: not at all 5. Poor appetite or overeating: not at all 6. Feeling bad about yourself - or that you are a failure or have let yourself or your family down: not at all 7. Trouble concentrating on things, such as reading the newspaper or watching television: not at all 8. Moving or speaking so slowly that other people could have noticed. Or the opposite - being so fidgety or restless that you have been moving around a lot more than usual: not at all 9. Thoughts that you would be better off or of hurting yourself in some way: not at all Total score: 0 Source: Developed by Drs. Josué Amin, Lala Bah, Delio Samuel and colleagues, with an educational eduin from [employer]. Thrive Questionnaire Date Thrive assessed: 12/06/24 I am a: Patient What is your living situation today?: I have a steady place to live Within the past 12 months, did the food you bought not last and you didn't have the money to get more?: Never true Within the past 12 months, did you worry whether your food would run out before you got money to buy more?: Never true Do you have trouble paying for medicines?: No Do you have trouble getting transportation to medical appointments?: No Do you have trouble paying your heating and electricity bill?: No Do you have trouble taking care of your child, family member or friend?: No Do you have trouble with day-to-day activities such as bathing, preparing meals, shopping, managing finances, etc.?: Yes Are you currently unemployed and looking for a job?: No Are you interested in more education?: No Please select the resources that you would like help with: Care for elder or disabled Currently or been in a relationship where the following occur: No concerns reported THRIVE Score: 0 AUDIT C Alcohol Use Questionnaire (AUDIT-C) 1. How often do you have a drink containing alcohol?: Never 3. How often do you have six or more drinks on one occasion?: Never Total Score: 0 OMAR-7 AMB Questionnaire OMAR-7 Date OMAR - 7 assessed: 01/09/25 Feeling nervous, anxious, or on edge: 0 = Not at all Not being able to stop or control worryin = Not at all Worrying too much about different things: 0 = Not at all Trouble relaxin = Not at all Being so restless that it is hard to sit still: 0 = Not at all Becoming easily annoyed or irritable: 0 = Not at all Feeling afraid as if something awful might happen: 0 = Not at all Total OMAR-7 score (0-4 normal; 5-9 mild; 10-14 moderate; 15-21 severe): 0 Source: Developed by Drs. Josué Amin, Lala Bah, Delio Samuel and colleagues, with an educational eduin from [employer]. Review of Systems Const All systems reviewed & are unremarkable except as noted in HPI and below Physical exam (Primary Care) Vital Signs: Last Vital Signs Temp 97.0 F 05/31/25 14:57 Pulse 78 05/31/25 14:57 BP 128/74 05/31/25 14:57 Pulse Ox 94 05/31/25 14:57 Oxygen Delivery Method Room Air 05/31/25 14:57 Tobacco/Smoking Status: Tobacco use Status Tobacco use date assessed 03/29/25 05/31/25 15:04 Patient Tobacco Use Status Former Tobacco user 05/31/25 15:04 e-Cigarette/Vaping Use Never Used 05/31/25 15:04 PHQ-9: PHQ-9 Score PHQ-9: Total score 0 05/31/25 15:11 Thrive Assessment: Date of Thrive Assessment Date Thrive assessed 12/06/24 05/31/25 15:04 Currently or been in a relationship where the following occur: No concerns reported Const General: cooperative and no acute distress Nutritional Appearance: obese Orientation/consciousness: Other orientation findings (Sleeping) Limitations: wheelchair Resp Effort & Inspection: normal respiratory effort and audible wheezes Auscultation: no crackles, no rales, no rhonchi and wheezes throughout Cardio Heart sounds: S1 normal heart sound present and S2 normal heart sound present Coding Level of Care Code Est Pt Level 4 (91249) Diagnoses Aspiration pneumonia due to gastric secretions, unspecified laterality, unspecified part of lung J69.0 Laterality: unspecified laterality Lung location: unspecified part of lung Time Spent (min) 20 Assessment & Plan Assessment & Plan (1) Aspiration pneumonia due to gastric secretions: Code(s): J69.0 - Pneumonitis due to inhalation of food and vomit Category: Medical Qualifiers: Laterality: unspecified laterality Lung location: unspecified part of lung Qualified Code(s): J69.0 - Pneumonitis due to inhalation of food and vomit Plan: Lungs with Wheezing through out - advised Albuterol Neb Q4-6 hours Ordered Scopolamine Patch and Ipratropium. Ordered Chest Wall Vest for PT F/U with Neurology for break through seizures. Medications: New [HIGH FREQUENCY CHEST WALL OSCILLATION VEST] As directed 1 ea 0RF CHEST PT J69.0 - Pneumonitis due to inhalation of food and vomit scopolamine base 1 patch transdermal Q3D 24 ea 1RF For secreation J69.0 - Pneumonitis due to inhalation of food and vomit ipratropium bromide 2.5 mL inhalation Q6H PRN 75 mL 2RF shortness of breath or wheezing J69.0 - Pneumonitis due to inhalation of food and vomit
--- OUTSIDE RECORDS SUMMARY | 2025-05-31 14:57 | XMS_ITS | Clinical Summary ---
Author Organization [facility] Address [id number] [place] [id number] Care Team Providers Care Wire Spooler Name Role Phone Martir Espino Primary Care Provider Surgical History Surgery Date Site/Laterality Comments OTHER SURGICAL HISTORY PROCEDURE: PA UNLISTED MUSCULOSKELETAL PROCEDURE HEAD OTHER SURGICAL HISTORY PROCEDURE: PA GASTRIC INTUBATION DX & ASPIRATJ MULTIPLE SPEC Medical History Medical History Date Comments TBI (traumatic brain injury) ([facility] V24, CMS/HCC V28) DX:TBI (traumatic brain inju ry) ([facility]) Social History Tobacco Use Types [...] age to complete this topic Care Teams Wire Spooler Relationship Specialty Start Date End Date Martir Espino PA PCP - General Internal Medicine 10/16/19
== END 2025-05-31 15:48 | disposition home or self-care (01) ==
LOC: HO.HMCH 14:55
PROVIDERS: PCP Physician Assistant; Visit Provider Nurse Practitioner Family
DX: J69.0 Pneumonitis due to inhalation of food and vomit (principal)

== ENCOUNTER → 2025-05-31 14:54 | Outpatient (BNVA) | payer OTHER, SELFPAY | PROVIDERS: PCP Physician Assistant; Visit Provider Nurse Practitioner Family | DX: J69.0 Pneumonitis due to inhalation of food and vomit (principal) | CPT/HCPCS: 96127; 99212 ==

== ENCOUNTER → 2025-06-30 23:59 | Outpatient (BNV) | payer OTHER, SELFPAY | PROVIDERS: PCP Physician Assistant; Visit Provider Physician Assistant | DX: J69.0 Pneumonitis due to inhalation of food and vomit (principal); B96.5 Pseudomonas (aeruginosa) (mallei) (pseudomallei) as the cause of diseases classified elsewhere; B96.89 Other specified bacterial agents as the cause of diseases classified elsewhere; J96.01 Acute respiratory failure with hypoxia | CPT/HCPCS: G0180 ==

== ENCOUNTER → 2025-07-09 23:59 | Outpatient (BNV) | payer OTHER, SELFPAY | PROVIDERS: PCP Physician Assistant; Visit Provider Physician Assistant | DX: J69.0 Pneumonitis due to inhalation of food and vomit (principal); B96.5 Pseudomonas (aeruginosa) (mallei) (pseudomallei) as the cause of diseases classified elsewhere; B96.89 Other specified bacterial agents as the cause of diseases classified elsewhere | CPT/HCPCS: G0180 ==

== ENCOUNTER 2025-07-16 10:48 | Outpatient (AMB) | payer OTHER, SELFPAY ==
--- OUTSIDE RECORDS SUMMARY | 2011-10-09 01:00 | XMS_ITS | Encounter Summary ---
Author Organization [facility] Address [address] [address] Phone Care Team Providers Care Wordpress Developer Name Role Phone Unavailable Primary Care Provider Unavailabl e Reason for Visit * MRI/CAT Scan - Closed Specialty Diagnoses / Procedures Referred By Contac t Referred To Contact Procedures CT Spine (Bone) Focus Outside (No Interpretation) Chiki Ferro MD [address] [place] [phone] [place] [address] Phone: tel: fax: mailto:[email or web address] Referral ID Status Reason Start Date Expiration Date Visits Re quested Visits Authorized [id number] Closed 01/11/2019 01/11/2020 1 1 Encounter Details Date Type Department Care Team (Late st Contact Info) Description 10/09/2011 Hospital Encounter [facility] 55 [place] [address] Chiki Ferro MD [address] [place] [phone] [place] [address] [email or web address]. DU Social History Tobacco Use Types Packs/Day Years [...] Care Team (Late st Contact Info) Description 07/17/2025 11:30 AM EDT Telemedicine [facility] [address] [address] Ana Vallejo MD 300 [place] [address] [email or web address] 12/04/2025 2:00 PM EST Telemedicine [facility] [address] [place] [address] 835 [place] [address] Chiki Ferro MD [address] [place], [place] [address]S-[phone] [place] [address] [email or web address] DU documented as of this encounter Procedures Procedure Name Priority Date/Time Associated Diagnosis Comments CT SPINE (BONE) OUTSIDE (NO INTERPRETATION) Routine 10/09/2011 12:00 AM EST documented in this encounter Results * CT Spine (Bone) Focus Outside (No Interpretation) (10/09/2011 12:00 AM EST) Narrative [facility] IMG INTERFACES - 01/11/2019 3:11 PM EST This study is for PACS storage only and not for interpretation. us Chiki Ferro MD IMG OUTSIDE IMAGING W/OUT INTER PRETATION Final Result [facility]G INTERFACES documented in this encounter Visit Diagnoses Not on filedocumented in this encounter Additional Source Comments The information contained in this document represents components of the legal health record. It is not the complete legal health record.[facility]
--- OUTSIDE RECORDS SUMMARY | 2011-10-09 01:15 | XMS_ITS | Encounter Summary ---
Author Organization [facility] Address 399 [facility] [address] [place] [address] Phone Care Team Providers Care Recruiting Scheduler Name Role Phone Unavailable Primary Care Provider Unavailabl e Reason for Visit * MRI/CAT Scan - Closed Specialty Diagnoses / Procedures Referred By Contac t Referred To Contact Procedures CT Neck Outside (No Interpretation) Chiki Ferro MD [address] [place] [phone] [place] [address] Phone: tel: fax: mailto:[email or web address] Referral ID Status Reason Start Date Expiration Date Visits Re quested Visits Authorized [id number] Closed 01/11/2019 01/11/2020 1 1 Encounter Details Date Type Department Care Team (Late st Contact Info) Description 10/09/2011 12:15 AM EST Hospital Encounter [facility] [address] [place] [address] Chiki Ferro MD [address] [place] [phone] [place] [address] MARY@[email or web address] Social History Tobacco Use Types Packs/Day Years [...] Info) Description 07/17/2025 11:30 AM EDT Telemedicine [facility] [address] [address] Ana Vallejo MD 300 [place] [address] [email or web address] 12/04/2025 2:00 PM EST Telemedicine [facility] [address] [place] [address] 835 [place] [address] Chiki Ferro MD [address] [place] [address]S-175-[address] [place] [address] [email or web address] DU documented as of this encounter Procedures Procedure Name Priority Date/Time Associated Diagnosis Comments CT NECK OUTSIDE (NO INTERPRETATION) Routine 10/09/2011 12:15 AM EST documented in this encounter Results * CT Neck Outside (No Interpretation) (10/09/2011 12:15 AM EST) Narrative [facility] IMG INTERFACES - 01/11/2019 3:12 PM EST This study is for PACS storage only and not for interpretation. us Chiki Ferro MD IMG OUTSIDE IMAGING W/OUT INTER PRETATION Final Result [facility] IMG INTERFACES documented in this encounter Visit Diagnoses Not on filedocumented in this encounter Additional Source Comments The information contained in this document represents components of the legal health record. It is not the complete legal health record.[facility]
--- OUTSIDE RECORDS SUMMARY | 2011-10-12 01:00 | XMS_ITS | Encounter Summary ---
Author Organization [facility] Address [address] [address] Phone Care Team Providers Care Icing Mixer Name Role Phone Unavailable Primary Care Provider Unavailabl e Reason for Visit * MRI/CAT Scan - Closed Specialty Diagnoses / Procedures Referred By Contac t Referred To Contact Procedures CT Spine (Bone) Focus Outside (No Interpretation) Chiki Ferro MD [address] [place] [phone] [place] [address] Phone: tel: fax: mailto:[email or web address] Referral ID Status Reason Start Date Expiration Date Visits Re quested Visits Authorized [id number] Closed 01/11/2019 01/11/2020 1 1 Encounter Details Date Type Department Care Team (Late st Contact Info) Description 10/12/2011 Hospital Encounter [facility] [address] [place] [address] Chiki Ferro MD [address] [place] [phone] [place] [address] [email or web address] DU Social History Tobacco Use Types Packs/Day [...] Info) Description 07/17/2025 11:30 AM EDT Telemedicine [facility] [address] [address] Ana Vallejo MD [address] [place] [address] [email or web address] 12/04/2025 2:00 PM EST Telemedicine [facility] [address] [place] [address] 835 [place] [address] Chiki Ferro MD [address] [place], [place] [phone]-[phone] [place] [phone] [email or web address] DU documented as of this encounter Procedures Procedure Name Priority Date/Time Associated Diagnosis Comments CT SPINE (BONE) OUTSIDE (NO INTERPRETATION) Routine 10/12/2011 12:00 AM EST documented in this encounter Results * CT Spine (Bone) Focus Outside (No Interpretation) (10/12/2011 12:00 AM EST) Narrative [facility] IMG INTERFACES - 01/11/2019 3:12 PM EST This study is for PACS storage only and not for interpretation. us Chiki Ferro MD IMG OUTSIDE IMAGING W/OUT INTER PRETATION Final Result [facility] IMG INTERFACES documented in this encounter Visit Diagnoses Not on filedocumented in this encounter Additional Source Comments The information contained in this document represents components of the legal health record. It is not the complete legal health record.[facility]
--- NOTE | 2025-07-16 10:50 | A.OFFPC_ITS ---
Vital Signs 07/16/25 10:51 Height 5 ft 9 in BMI Reason not done Patient refused/unable BP 130/60 Blood Pressure Location Lt brachial Position Sitting Pulse 76 Pulse Source Pulse Oximeter Temp 97.3 F Temp Source Temporal Artery Scan Pulse Oximetry (%) 95 Oxygen Delivery Method Room Air Intake Visit Reasons: 6 Month F/U Intake Note: Patient is here to follow up on HTN, Seizures,JES . Self Pay Collector Required: No Shear Grinder Operator Helper: Present Accompanied by: Mother Allergies latex (LATEX) Allergy (Intermediate, Verified 07/16/25 11:02) HIVES strawberry (STRAWBERRY) Allergy (Intermediate, Verified 07/16/25 11:02) HIVES Medication List - Last Reconciled 07/16/25 by Martir Espino PA-C [adult diapers As directed] albuterol sulfate 2.5 mg (3 mL) inhalation .4 times a day PRN 90 days amantadine HCl 200 mg (20 mL) PO BID 30 days amlodipine 2.5 mg PO DAILY blood pressure monitor (Blood Pressure Kit) As directed disposable gloves As directed [HIGH FREQUENCY CHEST WALL OSCILLATION VEST As directed] [incontinence wipes As directed] ipratropium bromide 2.5 mL inhalation Q6H PRN ketoconazole 2% 1 appl topical DAILY 15 days lactose-reduced food with fibr 0.07 gram-1.5 kcal/mL (Isosource 1.5 Matthew) 1 ea feeding tube DAILY 30 days lansoprazole 15 mg PO DAILY levetiracetam 1,000 mg (10 mL) PO DAILY 90 days loperamide (Anti-Diarrheal (loperamide)) 2 mg PO Q6H 7 days methylphenidate HCl 1 mg PO BID metoprolol tartrate 12.5 mg (1/2 x 25 mg) PO BID 90 days miscellaneous medical supply 1 ea miscellaneous .PRN 99 days miscellaneous medical supply 1 ea miscellaneous BID 30 days miscellaneous medical supply 1 ea miscellaneous QID 30 days miscellaneous medical supply 1 ea miscellaneous DAILY 99 days miscellaneous medical supply 1 ea miscellaneous .nightly 90 days miscellaneous medical supply 1 ea miscellaneous QID 30 days miscellaneous medical supply 1 ea miscellaneous DAILY 99 days nebulizer and compressor (Portable Nebulizer System) As directed Portable Suction Machine w/tubing,canister&filter (Suction machine w/tubing, canister and filter) As directed rivaroxaban (Xarelto) 10 mg PO DAILY 90 days scopolamine base 1 patch transdermal Q3D underpads (Good[employer]ites Bed Mats) As directed Tobacco use date assessed: 07/16/25 Dental Screening Dental Screen Date: 03/29/25 HPI 6 Month F/U HPI Details Kike is a 35-year-old male here today for a follow-up visit. ? 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 Aspiration pneumonia: Recently hospitalized at [facility] for aspiration pneumonias. Was treated with antibiotics and doing better. Now at home with family whom are trying their best to control secretions. Still has crackles on pulmonary exam. Patient now has a vest that performs percussion to help break up mucus/ secretion CHRONIC MEDICAL CONDITIONS--> Chronic diarrhea: Has multiple episodes of diarrhea and loose stool. Has had C diff positive testing in the past. Has trialed vancomycin though has not been significantly helpful. Had another bout diarrhea though unclear if C diff was started metronidazole empirically. Also does using Imodium which helps though when off of Imodium diarrhea comes back. Recently diagnosed with C diff colitis--> has been referred to Gastroenterology for evaluation on ?fecal transplant. .. ELEVATED LIVER ENZYMES: The patient has elevated liver enzymes, which have been persistent for some time. There is a suspicion of fatty liver disease, potentially related to diet and weight. An abdominal ultrasound has been recommended to further evaluate the liver condition. History of pulmonary embolism: Patient was to erythrocytosis and has seen pulmonology to evaluate for secondary causes erythrocytosis.? Continues on Xarelto 10 mg as A prophylactic measure As he is wheelchair-bound. He has been diagnosed with obstructive sleep apnea likely causing his erythrocytosis Has been started on CPAP machine nightly though has not been able to tolerate CPAP mask .. TBI: has seen a neurologist and has been placed on ratlin for alertness.? He gets feeding through G-tube. ? He does have his G-tube replaced with general surgeon here in [place]. Continues on seizure prophylaxis ? Obstructive sleep apnea:? Was seen by pulmonology and started on auto CPAP for obstructive sleep apnea Mother reports patient is not compliant with CPAP due not being tolerant of the mask. ? .. ? Asthma: Patient is mother reports asthma has been well controlled not had to use nebulizer much. [facility] Medical History Aspiration pneumonia due to gastric secretions Neurogenic bladder Asthma Quadriparesis TBI (traumatic brain injury) History of pulmonary embolism Surgical History History of gastrostomy (06/02/20) History of throat surgery (02/2019) History of brain surgery Family History Mother Interstitial lung disease Father Esophageal cancer DMII (diabetes mellitus, type 2) Social History Household Members: Family Housing: House Alcohol intake: never Patient Tobacco Use Status: Former Tobacco user e-Cigarette/Vaping Use: Never Used Second Hand Smoke Exposure: Yes service: No Current occupational status: disabled Cognitive needs: Yes (big wheelchair) Hearing needs: No Vision needs: No Questionnaire Thrive Questionnaire Date Thrive assessed: 12/06/24 I am a: Patient What is your living situation today?: I have a steady place to live Within the past 12 months, did the food you bought not last and you didn't have the money to get more?: Never true Within the past 12 months, did you worry whether your food would run out before you got money to buy more?: Never true Do you have trouble paying for medicines?: No Do you have trouble getting transportation to medical appointments?: No Do you have trouble paying your heating and electricity bill?: No Do you have trouble taking care of your child, family member or friend?: No Do you have trouble with day-to-day activities such as bathing, preparing meals, shopping, managing finances, etc.?: Yes Are you currently unemployed and looking for a job?: No Are you interested in more education?: No Please select the resources that you would like help with: Care for elder or disabled Currently or been in a relationship where the following occur: No concerns reported THRIVE Score: 0 OMAR-7 AMB Questionnaire OMAR-7 Date OMAR - 7 assessed: 01/09/25 Source: Developed by Drs. Josué Amin, Lala Bah, Delio Samuel and colleagues, with an educational eduin from [employer]. Review of Systems Const Denies headache(s) Eyes Denies loss of vision ENT Denies vertigo, Denies dizziness, Denies headache(s) and Denies sore throat Card Denies chest pain, Denies leg edema and Denies lightheadedness Resp Denies cough, Denies hemoptysis and Denies wheezing GI Denies abdominal pain, Denies melena, Denies constipation, Denies diarrhea and Denies vomiting Denies dysuria, Denies urinary frequency and Denies urinary urgency Musc Denies arthralgias, Denies joint swelling, Denies numbness and Denies tingling Neuro Denies Abnormal speech present, Denies behavioral changes, Denies vertigo, Denies dizziness, Denies headache(s), Denies loss of vision, Denies memory loss, Denies numbness and Denies tingling Psych Denies anxiety, Denies behavioral changes, Denies depression, Denies memory loss and Denies panic attacks Caio/Lymph Denies easy bleeding and Denies easy bruising Aller/Immun Denies wheezing Physical exam (Primary Care) Vital Signs: Last Vital Signs Temp 97.3 F 07/16/25 10:51 Pulse 76 07/16/25 10:51 BP 130/60 07/16/25 10:51 Pulse Ox 95 07/16/25 10:51 Oxygen Delivery Method Room Air 07/16/25 10:51 Tobacco/Smoking Status: Tobacco use Status Tobacco use date assessed 07/16/25 07/16/25 10:57 Patient Tobacco Use Status Former Tobacco user 07/16/25 10:57 e-Cigarette/Vaping Use Never Used 07/16/25 10:57 Thrive Assessment: Date of Thrive Assessment Date Thrive assessed 12/06/24 07/16/25 10:57 Currently or been in a relationship where the following occur: No concerns reported Const Other: SITTING IN WHEELCHAIR APPEARS COMFORTABLE, QUADRIPLEGIC General: healthy appearing, no acute distress, alert and awake Nutritional Appearance: well nourished Orientation/consciousness: oriented to person, oriented to place and oriented to time HENMT Ears: TM's normal bilaterally General nose exam: Normal nasal mucous membranes and turbinates present Eyes Conjunctivae: conjunctivae normal Sclerae: sclerae normal Pupils: Equal, round and reactive pupils present Neck Neck: Yes no lymphadenopathy and Yes no JVD Thyroid: Thyroid normal Carotids: no bruits Resp Effort & Inspection: normal respiratory effort and not tachypneic Auscultation: crackles, no rales, rhonchi and no wheezes Cardio Rate: regular rate Rhythm: regular rhythm Heart sounds: no murmurs and normal S1 and S2 GI Palpation (GI): Soft to palpation, nontender, no hepatomegaly and no splenomegaly Auscultation: normal bowel sounds Skin General skin exam: no rashes or lesions noted and dry skin Neuro General: oriented to person, oriented to place and oriented to time Cranial nerves: Yes Equal, round and reactive pupils present Speech: No Abnormal speech present Gait exam (Neuro): Normal gait present Motor exam (neuro): no tremor noted Extrem Right upper extremity: full ROM Left upper extremity: full ROM Right lower extremity: full ROM; no edema Left lower extremity: full ROM; no edema Psych Mental Status: mental status grossly normal Speech and movement: Normal speech and movement present Affect: normal affect Attitude: cooperative Thought process: Normal thought process present Coding Level of Care Code Est Pt Level 4 (49445) Diagnoses Aspiration pneumonia of right lower lobe, unspecified aspiration pneumonia type J69.0 Aspiration pneumonia type: unspecified Laterality: right Lung location: lower lobe of lung Quadriparesis G82.50 Seizure disorder G40.909 Traumatic brain injury with loss of consciousness, subsequent encounter [id number] .[id number] Encounter type: subsequent encounter Loss of consciousness presence/duration: with LOC of unspecified duration Elevated liver enzymes R74.8 Assessment & Plan Assessment & Plan (1) Aspiration pneumonia: Code(s): J69.0 - Pneumonitis due to inhalation of food and vomit Category: Medical Qualifiers: Aspiration pneumonia type: unspecified Laterality: right Lung location: lower lobe of lung Qualified Code(s): J69.0 - Pneumonitis due to inhalation of food and vomit Plan: The patient will continue to use a vest for percussion therapy to aid in clearing respiratory secretions. He has been advised to hold his breath while swallowing to prevent aspiration. A referral to a electronic prepress system operator will be arranged for further management and to provide additional recommendations. Will supply with antibiotics to hold on to in case of a recurrent infection to try to reduce hospitalizations. (2) Quadriparesis: Code(s): G82.50 - Quadriplegia, unspecified Category: Medical Plan: Continues to get good care from his family. Is wheelchair dependent and has G-tube in place. (3) Seizure disorder: Code(s): G40.909 - Epilepsy, unspecified, not intractable, without status epilepticus Category: Medical Plan: Due to traumatic brain injury continues on amantadine and Keppra for seizure prophylaxis. Does have a neurologist at [facility]. No reports of any recent seizures. (4) TBI (traumatic brain injury): Code(s): S06.9X9A - Unspecified intracranial injury with loss of consciousness of unspecified duration, initial encounter Category: Medical Qualifiers: Encounter type: subsequent encounter Loss of consciousness presence/duration: with LOC of unspecified duration Qualified Code(s): S06.9X9D - Unspecified intracranial injury with loss of consciousness of unspecified duration, subsequent encounter Plan: As per HPI patient suffered a traumatic brain injury many years ago which left him as a quadriplegic. Continues on Keppra and amantadine for seizure prophylaxis Again as above continues to be wheelchair dependent and gets 24 hour care by his family. (5) Elevated liver enzymes: Code(s): R74.8 - Abnormal levels of other serum enzymes Category: Medical Plan: An abdominal ultrasound has been ordered to evaluate the liver condition further. Dietary modifications, including a low-fat diet, are recommended to address potential fatty liver disease. Orders: Orders Comprehensive Met. Panel Today R74.8 - Abnormal levels of other serum enzymes US abdomen complete Today R74.8 - Abnormal levels of other serum enzymes Complete Blood Count no Diff Today I26.99 - Other pulmonary embolism without acute cor pulmonale Referrals Pulmonology Referral J69.0 - Pneumonitis due to inhalation of food and vomit Medications: New azithromycin For 250 mg dose pack: take 500 mg today (day 1), then 250 mg for 4 days (days 2-5) PO 6 tabs 0RF J69.0 - Pneumonitis due to inhalation of food and vomit
[2025-07-16 10:51] VITALS: BP 130/60; PULSE 76; TEMP 36.3; O2SAT 95
--- OUTSIDE RECORDS SUMMARY | 2025-07-16 11:40 | XMS_ITS | Continuity of Care Document ---
Author Name [facility], Medical Address [address] [place] [id number] Organization Unknown Address [address] [place] [id number] Medications No known medications Problems No known problems
--- OUTSIDE RECORDS SUMMARY | 2025-07-16 11:40 | XMS_ITS | Encounter Summary ---
Author Organization [facility] Address 399 [facility] [address] [place] [address] Phone Care Team Providers Care Wing Coverer Name Role Phone Martir Espino Primary Care Provider + Luis Farah MD, DDS Unavailable [phone] [phone] Lissy Harris DMD Unavailable Encounter Details Date Type Department Care Team (Late st Contact Info) Description 06/28/2025 Telephone [facility] [place] [address] [facility], 8th Floor, [address] [place] [address] Chiki Ferro MD [address] [place] [address]S-[id number] [place] [address] [email or web address] [place] Social History Tobacco Use Types Packs/Day Years [...] AM EDT documented as of this encounter Progress Notes * Rubén Chelsey - 06/28/2025 2:44 PM EDT WHO: Josefa nurse from [facility] WHAT: stated pt was recently hospitalized for pneumonia at [facility], was discharged to home yesterday Josefa went to visit him to provide at home services & pt's caregiver had some concerns regarding discharge paperwork instructions. Josefa stated discharge paperwork instructs pt to stop taking amantadine 100 mg tablet however it does not specify for how long or why pt should stop taking this. Josefa stated caregiver is concerned b/c this is a medication that was prescribed by Dr. Ferro that pt has been taking for some time now so stopping it randomly with no explanation or reason is worrisome, so caregiver asked Josefa to give neurology a call let Dr. Ferro know. Best callback #: [phone] documented in this encounter Plan of Treatment Upcoming Encounters Date Type Department Care Team (Late st Contact Info) Description 07/17/2025 11:30 AM EDT Telemedicine [facility] [address] [address] Ana Vallejo MD [address] [place] [address] [email or web address] 12/04/2025 2:00 PM EST Telemedicine [facility] [place] [facility] [address] [place] [address] Chiki Ferro MD 55 [facility] [id number] [place] [address] [email or web address] [place]. [place] documented as of this encounter Visit Diagnoses Not on filedocumented in this encounter Care Teams Wing Coverer Relationship Specialty Start Date End Date Martir Espino PA [address] [place] [address] PCP - General 12/29/18 Luis Farah MD, DDS 55 [facility] WRN-1201 [place] [address] [email or web address] quality nurse 11/06/21 Lissy Harris DMD 165 [facility] 401 [place] [address] [email or web address].[facility] Dentist Dental Professor Of German 06/08/22 documented as of this encounter Additional Source Comments The information contained in this document represents components of the legal health record. It is not the complete legal health record.[facility]
--- OUTSIDE RECORDS SUMMARY | 2025-07-16 11:40 | XMS_ITS | Encounter Summary ---
Author Organization [facility] Address [address] [address] Phone Care Team Providers Care Private Branch Exchange Repairer Name Role Phone Martir Espino Primary Care Provider + Luis Farah MD, DDS Unavailable [phone] Lissy Harris DMD Unavailable Encounter Details Date Type Department Care Team (Late st Contact Info) Description 01/11/2019 Procedure Pass [facility]erg[facility] [address] [place] [address] Social History Tobacco Use Types Packs/Day Years Used Date Smoking Tobacco: Never Assessed Sex and Gender Information Value Date Recorded Sex Assigned at Male 06/29/2021 8:23 AM EDT Legal Sex Male 12:23 PM EDT Gender Identity Male 06/29/2021 8:23 AM EDT Sexual Orientation Straight 06/29/2021 8: 23 AM EDT documented as of this encounter Plan of Treatment Upcoming Encounters Date Type Department Care Team (Late st Contact Info) Description 07/17/2025 11:30 AM EDT Telemedicine [facility] [address] [address] Ana Vallejo MD [address] [place] [address] [id number] [email or web address] 12/04/2025 2:00 PM EST Telemedicine [facility] 55 [facility] 835 [place] [address] Chiki Ferro MD 55 [facility] DAIO-[phone] [place] [address] MARY@[email or web address]. [place] documented as of this encounter Visit Diagnoses Not on filedocumented in this encounter Care Teams Private Branch Exchange Repairer Relationship Specialty Start Date End Date Martir Espino PA [address] [place] [address] PCP - General 12/29/18 Luis Farah MD, DDS 55 [facility] WRN-1201 [place] [address] [email or web address] cell biology scientist 11/06/21 Lissy Harris DMD 165 [facility] 401 [place] [address] [email or web address] Dentist Dental Spray I Painter 06/08/22 documented as of this encounter Additional Source Comments The information contained in this document represents components of the legal health record. It is not the complete legal health record.[facility]
--- OUTSIDE RECORDS SUMMARY | 2025-07-16 11:40 | XMS_ITS | Encounter Summary ---
Author Organization [facility] Address [address] [address] [place] [address] Phone Care Team Providers Care Nutrition Associate Name Role Phone Martir Espino Primary Care Provider + Luis Farah MD, DDS Unavailable [phone] Lissy Harris DMD Unavailable Reason for Visit * Reason Comments Medication Refill Encounter Details Date Type Department Care Team (Late st Contact Info) Description 04/29/2024 Refill [facility] Department of Neurology [address] [place] [address], 8th Floor, [address] [place] [address] Chiki Ferro MD [address] [place] [address] NYUB-[id number] [place] [address] [email or web address] [email or web address] Medication Refill Social History Tobacco Use Types Packs/Day Years [...] as of this encounter Progress Notes * Yi Asencio [place] - 04/30/2024 11:10 AM EDT Images from the original note were not included. Please refill. Thanks Name from pharmacy: levETIRAcetam 750 MG Oral Tablet Will file in chart as: levETIRAcetam (KEPPRA) 750 MG tablet Sig: Take 1 tablet by mouth once daily Disp: 30 tablet Refills: 0 Start: 04/29/2024 Class: Normal For: Traumatic brain injury with loss of consciousness, sequela Last ordered: 1 month ago (03/27/2024) by Chiki Ferro MD Last refill: 04/03/2024 Rx #: [id number] To be filled at: [facility] [address] [place] [address] documented in this encounter Plan of Treatment Upcoming Encounters Date Type Department Care Team (Late st Contact Info) Description 07/17/2025 11:30 AM EDT Telemedicine [facility] [address] [address] Ana Vallejo MD [address] [place] [address] [email or web address] 12/04/2025 2:00 PM EST Telemedicine [facility]covery [facility] [address] [place] [address] Chiki Ferro MD 55 [facility] [phone] [place] [address] [email or web address]. [email or web address] documented as of this encounter Visit Diagnoses Diagnosis Traumatic brain injury with loss of consciousness, sequela documented in this encounter Care Teams Nutrition Associate Relationship Specialty Start Date End Date Martir Espino PA 12[address] [place] [address] PCP - General 12/29/18 Luis Farah MD, DDS [address] [place] [address] WRN-1201 [place] [address] [email or web address] roll trucker 11/06/21 Lissy Harris DMD 165 [facility] 401 [place] [address] [email or web address] Dentist Dental Design Draftsman 06/08/22 documented as of this encounter Additional Source Comments The information contained in this document represents components of the legal health record. It is not the complete legal health record.[facility]
--- OUTSIDE RECORDS SUMMARY | 2025-07-16 11:40 | XMS_ITS | Encounter Summary ---
Author Organization [facility] Address [address] [address] Phone Care Team Providers Care Truck Spotter Name Role Phone Martir Espino Primary Care Provider + Luis Farah MD, DDS Unavailable [phone] Lissy Harris DMD Unavailable Encounter Details Date Type Department Care Team (Late st Contact Info) Description 11/24/[address] [facility] L[place] 6 [address] [facility], 6th [place] [address] Social History Tobacco Use Types Packs/Day Years Used Date Smoking Tobacco: Former Cigarettes Q uit: 11/06/2016 Smokeless Tobacco: Never Alcohol Use Standard Drinks/Week [...] Info) Description 07/17/2025 11:30 AM EDT Telemedicine [facility] [place] [address] [place] [address] Ana Vallejo MD [address] [place] [address] [email or web address] 12/04/2025 2:[address] [facility] [address] [place] [address] WACC 835 [place] [address] Chiki Ferro MD 55 [facility] [phone] [place] [address] [email or web address]. [place] documented as of this encounter Visit Diagnoses Not on filedocumented in this encounter Care Teams Truck Spotter Relationship Specialty Start Date End Date Martir Espino PA 1221 [place] [address] PCP - General 12/29/18 Luis Farah MD, DDS 55 [facility] WRN-1201 [place] [address] [email or web address] [email or web address] [place].[facility] director of psychology 11/06/21 Lissy Harris, JAROCHO 165 [facility] [address] [place] [address] [email or web address] Dentist Dental Communication Arts Lecturer 06/08/22 documented as of this encounter Additional Source Comments The information contained in this document represents components of the legal health record. It is not the complete legal health record.[facility]
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
--- OUTSIDE RECORDS SUMMARY | 2025-07-16 11:40 | XMS_ITS | Encounter Summary ---
Author Organization [facility] Address [address] [address] Phone Care Team Providers Care Block Hand Name Role Phone Martir Espino Primary Care Provider + Luis Farah MD, DDS Unavailable [phone] Lissy Harris DMD Unavailable Reason for Visit * Reason Comments Medication Refill Encounter Details Date Type Department Care Team ([facility] st Contact Info) Description 07/09/2025 Refill [facility]covery Clinic [address] [place] [address] 835 [place] [address] Chiki Ferro MD 55 [facility][phone] [place] [address] [email or web address] U Medication Refill Social History Tobacco Use Types [...] Info) Description 07/17/2025 11:30 AM EDT Telemedicine [facility] [address] [address] Ana Vallejo MD [address] [place] [address] [email or web address] 12/04/2025 2:00 PM EST Telemedicine [facility] 55 [facility] 835 [place] [address] Chiki Ferro MD [address] [place] [address] [phone] [place] [address] [email or web address] DU documented as of this encounter Visit Diagnoses Diagnosis Traumatic brain injury with loss of consciousness, sequela documented in this encounter Care Teams Block Hand Relationship Specialty Start Date End Date Martir Espino PA [address] [place] [address] PCP - General 12/29/18 Luis Farah MD, DDS 55 [facility] WRN-1201 [place] [address] [email or web address] process control tech 11/06/21 Lissy Harris, JAROCHO [address] [address] PURVI@[email or web address] Dentist Dental Mink Rancher 06/08/22 documented as of this encounter Additional Source Comments The information contained in this document represents components of the legal health record. It is not the complete legal health record.[facility]
--- OUTSIDE RECORDS SUMMARY | 2025-07-16 11:40 | XMS_ITS | Encounter Summary ---
Author Organization [facility] Address [address] [address] Phone Care Team Providers Care Nude Model Name Role Phone Martir Espino Primary Care Provider + Luis Farah MD, DDS Unavailable [phone] Lissy Harris DMD Unavailable Encounter Details Date Type Department Care Team (Late st Contact Info) Description 11/24/2021 Procedure Pass [facility] MRI, Lunder 6 55 [facility], 6th [place] [address] Social History Tobacco Use Types Packs/Day Years [...] Info) Description 07/17/2025 11:30 AM EDT Telemedicine [facility] [place] [address] [place] [address] Ana Vallejo MD [address] [place] [address] [email or web address] 12/04/2025 2:00 PM EST Telemedicine [facility] Clinic [address] [place] [address] WACC 835 [place] [address] Chiki Ferro MD 55 [facility] [id number] [place] [address] [email or web address] [place] documented as of this encounter Visit Diagnoses Not on filedocumented in this encounter Care Teams Nude Model Relationship Specialty Start Date End Date Martir Espino PA [address] [place] [address] PCP - General 12/29/18 Luis Farah MD, DDS 55 [facility] WRN-1201 [place] [address] [email or web address] mirror machine feeder 11/06/21 Lissy Harris, JAROCHO 165 [facility] [address] [place] [address] [email or web address] Dentist Dental Director Non Profit 06/08/22 documented as of this encounter Additional Source Comments The information contained in this document represents components of the legal health record. It is not the complete legal health record.[facility]
--- OUTSIDE RECORDS SUMMARY | 2025-07-16 11:40 | XMS_ITS | Encounter Summary ---
Author Organization [facility] Address [address] [facility] [address] [place] [address] Phone Care Team Providers Care Planer Off Bearer Name Role Phone Maritr Espino Primary Care Provider + Luis Farah MD, DDS Unavailable [phone] Lissy Harris DMD Unavailable Reason for Visit * Reason Comments Medication Refill Encounter Details Date Type Department Care Team (Late st Contact Info) Description 09/30/2023 Refill [facility] Department of Neurology [address] [place] [address], 8th Floor, [address] [place] [address] Chiki Ferro MD [address] [place] [address] [id number] [place] [address] [email or web address] TO [facility] Medication Refill Social History Tobacco Use Types [...] Info) Description 07/17/2025 11:30 AM EDT Telemedicine [facility] [address] [address] Ana Vallejo MD [address] [place] [address] [email or web address] 12/04/2025 2:00 PM EST Telemedicine [facility] 55 [facility] 835 [place] [address] Chiki Ferro MD [address] [place] [address] [phone] [place] [address] [email or web address] [place] documented as of this encounter Visit Diagnoses Not on filedocumented in this encounter Care Teams Planer Off Bearer Relationship Specialty Start Date End Date Martir Espino PA [address] [place] [address] PCP - General 12/29/18 Luis Farah MD, DDS 55 [facility] WRN-1201 [place] [address] [email or web address] operator supply 11/06/21 Lissy Harris DMD [address] [phone] [email or web address] Dentist Dental Appeals Manager 06/08/22 documented as of this encounter Additional Source Comments The information contained in this document represents components of the legal health record. It is not the complete legal health record.[facility]
--- OUTSIDE RECORDS SUMMARY | 2025-07-16 11:41 | XMS_ITS | Encounter Summary ---
Author Organization [facility] Address [address] [address] Phone Care Team Providers Care Mangle Roller Name Role Phone Martir Espino Primary Care Provider + Luis Farah MD, DDS Unavailable [phone] Lissy Harris DMD Unavailable Encounter Details Date Type Department Care Team (Late Contact Info) Description 10/08/2022 Procedure Pass [facility] 55 [place] [id number] Social History Tobacco Use Types Packs/Day Years [...] Encounters Date Type Department Care Team (Late Contact Info) Description 07/17/2025 11:30 AM EDT Telemedicine [facility] [address] [place] [address] Ana Vallejo MD [address] [place] [address] [email or web address] 12/04/2025 2:00 PM EST Telemedicine [facility] [address] [place] [address] WACC 835 [place] [address] Chiki Ferro MD 55 [facility] [phone] [place] [address] [email or web address] [place] documented as of this encounter Visit Diagnoses Not on filedocumented in this encounter Care Teams Mangle Roller Relationship Specialty Start Date End Date Martir Espino PA [address] [place] [address] PCP - General 12/29/18 Luis Farah MD, DDS 55 [facility] WRN-1201 [place] [address] [email or web address] cut in station operator 11/06/21 Lissy Harris, JAROCHO 165 [facility] [address] [place] [address] [email or web address] Dentist Dental Dispatcher [employer] 06/08/22 documented as of this encounter Additional Source Comments The information contained in this document represents components of the legal health record. It is not the complete legal health record.[facility]
--- OUTSIDE RECORDS SUMMARY | 2025-07-16 11:41 | XMS_ITS | Clinical Summary ---
Author Organization [facility] Address [address] [place] [phone] Care Team Providers Care Procurement Services Manager Name Role Phone Martir Espino Primary Care Provider [phone] Surgical History Surgery Date Site/Laterality Comments OTHER SURGICAL HISTORY PROCEDURE: WI UNLISTED MUSCULOSKELETAL PROCEDURE HEAD OTHER SURGICAL HISTORY PROCEDURE: WI GASTRIC INTUBATION DX & ASPIRATJ MULTIPLE SPEC Medical History Medical History Date Comments TBI (traumatic brain injury) ([facility]/HCC V24, [facility]/HCC V28) DX:TBI (traumatic brain inju ry) ([facility]) Social History Tobacco Use Types Packs/Day Years [...] 2011 COVID-19 Vaccine (2023-2 5 season) 2024 Depression Screening 11/21/2024 Influenza Vaccine (#1) 2025 HIB Vaccines Aged [...] age to complete this topic Care Teams Procurement Services Manager Relationship Specialty Start Date End Date Martir Espino PA PCP - General Internal Medicine 10/16/19
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
--- OUTSIDE RECORDS SUMMARY | 2025-07-16 11:41 | XMS_ITS | Continuity of Care Document ---
Author Name Efrain Mai Address [address] [place] [address] Organization Unknown Address [address] [place] [address] Medications No known medications Problems No known problems
== END 2025-07-16 11:26 | disposition home or self-care (01) ==
LOC: HO.HMCH 10:49
PROVIDERS: PCP Physician Assistant; Visit Provider Physician Assistant
DX: J69.0 Pneumonitis due to inhalation of food and vomit (principal); G82.50 Quadriplegia, unspecified; G40.909 Epilepsy, unspecified, not intractable, without status epilepticus; S06.9X9D Unspecified intracranial injury with loss of consciousness of unspecified duration, subsequent encounter; R74.8 Abnormal levels of other serum enzymes

== ENCOUNTER → 2025-07-16 10:48 | Outpatient (BNVA) | payer OTHER, SELFPAY | PROVIDERS: PCP Physician Assistant; Visit Provider Physician Assistant | DX: G47.33 Obstructive sleep apnea (adult) (pediatric) (principal); G82.50 Quadriplegia, unspecified; J69.0 Pneumonitis due to inhalation of food and vomit; R74.8 Abnormal levels of other serum enzymes; Z87.820 Personal history of traumatic brain injury; Z86.711 Personal history of pulmonary embolism; Z99.89 Dependence on other enabling machines and devices | CPT/HCPCS: 99212 ==

== ENCOUNTER 2025-08-30 16:31 | Outpatient (AMB) | payer OTHER, SELFPAY ==
[2025-08-30 16:32] VITALS: BP 132/70; PULSE 85; O2SAT 94
--- NOTE | 2025-08-30 16:32 | MHC.PC.OV ---
Vital Signs 08/30/25 16:32 Height 5 ft 9 in BMI Reason not done Patient refused/unable BP 132/70 Blood Pressure Location Lt brachial Position Sitting Pulse 85 Pulse Source Pulse Oximeter Pulse Oximetry (%) 94 Oxygen Delivery Method Room Air Intake Visit Reasons: [facility] 08/14 Attending Ambulatory Care Required: No Accompanied by: Self / Same As Patient Allergies latex (LATEX) Allergy (Intermediate, Verified 08/30/25 16:43) HIVES strawberry (STRAWBERRY) Allergy (Intermediate, Verified 08/30/25 16:43) HIVES Tobacco use date assessed: 08/30/25 Dental Screening Dental Screen Date: 08/30/25 Did you have a dental visit in the last 12 months?: No Did you have a dental problem in the last 6 months where you did not have access to dental care?: No Was dental information given to patient?: No HPI HPI Comments History of Present Illness Details 35 y/o Non-Verbal Male patient who presents to the clinic today for HDF. He is accompanied by his Care-takers, who assist with history. Pt was admitted at [facility] on 08/14 - 08/15 for evaluation and treatment of intermittent fevers for over 2 days. He was originally admitted at [facility] and discharged on 06/27/25 for an evaluation and treatment of Multifocal Aspiration Pneumonia complicated by acute Respiratory Failure with Hypoxia and Hypercapnia. Pt was treated with IV Abx and discharged back to [facility] Medical History (Updated 08/30/25 @ 17:22 by Melissa Parikh NP) Fever Aspiration pneumonia due to gastric secretions Neurogenic bladder Asthma Quadriparesis TBI (traumatic brain injury) History of pulmonary embolism Surgical History History of gastrostomy (06/02/20) History of throat surgery (02/2019) History of brain surgery Family History Mother Interstitial lung disease Father Esophageal cancer DMII (diabetes mellitus, type 2) Social History Household Members: Family Housing: House Alcohol intake: never Patient Tobacco Use Status: Former Tobacco user e-Cigarette/Vaping Use: Never Used Second Hand Smoke Exposure: Yes service: No Current occupational status: disabled Cognitive needs: Yes (big wheelchair) Hearing needs: No Vision needs: No Questionnaire Thrive Questionnaire Date Thrive assessed: 12/06/24 I am a: Patient What is your living situation today?: I have a steady place to live Within the past 12 months, did the food you bought not last and you didn't have the money to get more?: Never true Within the past 12 months, did you worry whether your food would run out before you got money to buy more?: Never true Do you have trouble paying for medicines?: No Do you have trouble getting transportation to medical appointments?: No Do you have trouble paying your heating and electricity bill?: No Do you have trouble taking care of your child, family member or friend?: No Do you have trouble with day-to-day activities such as bathing, preparing meals, shopping, managing finances, etc.?: Yes Are you currently unemployed and looking for a job?: No Are you interested in more education?: No Please select the resources that you would like help with: Care for elder or disabled Currently or been in a relationship where the following occur: No concerns reported THRIVE Score: 0 AUDIT C Alcohol Use Questionnaire (AUDIT-C) 1. How often do you have a drink containing alcohol?: Never 3. How often do you have six or more drinks on one occasion?: Never Total Score: 0 OMAR-7 AMB Questionnaire OMAR-7 Date OMAR - 7 assessed: 01/09/25 Source: Developed by Drs. Josué Amin, Lala Bah, Delio Samuel and colleagues, with an educational eduin from [employer]. Review of Systems Const All systems reviewed & are unremarkable except as noted in HPI and below Physical exam (Primary Care) Vital Signs: Last Vital Signs Pulse 85 08/30/25 16:32 BP 132/70 08/30/25 16:32 Pulse Ox 94 08/30/25 16:32 Oxygen Delivery Method Room Air 08/30/25 16:32 Tobacco/Smoking Status: Tobacco use Status Tobacco use date assessed 08/30/25 08/30/25 16:33 Patient Tobacco Use Status Former Tobacco user 08/30/25 16:33 e-Cigarette/Vaping Use Never Used 08/30/25 16:33 Thrive Assessment: Date of Thrive Assessment Date Thrive assessed 12/06/24 08/30/25 16:33 Currently or been in a relationship where the following occur: No concerns reported Const Other: Patient asleep comfortably on his Wheelchair General: no acute distress Nutritional Appearance: obese Limitations: wheelchair and other limitations (Non verbal due to h/o TBI) Resp Effort & Inspection: normal respiratory effort, no audible wheezes and Actively coughing Auscultation: clear to auscultation bilaterally, no crackles, no rales, no rhonchi and no wheezes Cardio Rhythm: regular rhythm Coding Level of Care Code Est Pt Level 4 (16551) Diagnoses Fever, unspecified fever cause R50.9 Fever type: unspecified Time Spent (min) 20 Assessment & Plan Assessment & Plan (1) Fever: Code(s): R50.9 - Fever, unspecified Category: Medical Qualifiers: Fever type: unspecified Qualified Code(s): R50.9 - Fever, unspecified Plan: Resolved - today he is Afebrile. Vitals stable and exam with no acute findings.
== END 2025-08-30 17:11 | disposition home or self-care (01) ==
LOC: HO.HMCH 16:31
PROVIDERS: PCP Physician Assistant; Visit Provider Nurse Practitioner Family
DX: R50.9 Fever, unspecified (principal)

== ENCOUNTER → 2025-08-30 16:31 | Outpatient (BNVA) | payer OTHER, SELFPAY | PROVIDERS: PCP Physician Assistant; Visit Provider Nurse Practitioner Family | DX: R50.9 Fever, unspecified (principal) | CPT/HCPCS: 99212 ==

== ENCOUNTER 2025-09-10 14:58 | Outpatient (AMB) | payer OTHER, SELFPAY ==
--- OUTSIDE RECORDS SUMMARY | 2011-10-09 01:00 | XMS_ITS | Encounter Summary ---
Author Organization [facility] Address [address] [address] Phone Care Team Providers Care Accountant Property Name Role Phone Unavailable Primary Care Provider Unavailabl e Reason for Visit * MRI/CAT Scan - Closed Specialty Diagnoses / Procedures Referred By Contac t Referred To Contact Procedures CT Spine (Bone) Focus Outside (No Interpretation) Chiik Ferro MD [address] [place] [phone] [place] [address] Phone: tel: fax: mailto:[email or web address] Referral ID Status Reason Start Date Expiration Date Visits Re quested Visits Authorized [id number] Closed 01/11/2019 01/11/2020 1 1 Encounter Details Date Type Department Care Team (Late st Contact Info) Description 10/09/2011 Hospital Encounter [facility] 55 [place] [address] Chiki Ferro MD [address] [place] [phone] [place] [address] [email or web address]. du Social History Tobacco Use Types [...] [facility] [address] [place] [address] 835 [place] [address] Chiki Ferro MD [address] [place] [address] [phone] [place] [address] [email or web address]. maria del rosario 01/21/2026 12:00 PM EST Telemedicine [facility] [address] [address] Ana Vallejo MD [address] [place] [address] [email or web address] documented as of this encounter [...] It is not the complete legal health record.[facility]
--- OUTSIDE RECORDS SUMMARY | 2011-10-09 01:15 | XMS_ITS | Encounter Summary ---
Author Organization [facility] Address 399 [facility] [address] [place] [address] Phone Care Team Providers Care Radiology Clerk Name Role Phone Unavailable Primary Care Provider Unavailabl e Reason for Visit * MRI/CAT Scan - Closed Specialty Diagnoses / Procedures Referred By Contac t Referred To Contact Procedures CT Neck Outside (No Interpretation) Chiki Ferro MD [address] [place] [phone] [place] [address] Phone: tel: fax: mailto:[email or web address] Referral ID Status Reason Start Date Expiration Date Visits Re quested Visits Authorized [id number] Closed 01/11/2019 01/11/2020 1 1 Encounter Details Date Type Department Care Team (Late st Contact Info) Description 10/09/2011 12:15 AM EST Hospital Encounter [facility] [address] [place] [address] Chiki Ferro MD [address] [place] [phone] [place] [address] MARY@[email or web address] Social History Tobacco Use Types Packs/Day Years [...] Description 12/04/2025 2:00 PM EST Telemedicine [facility] [address] [place] [address] 835 [place] [address] Chiki Ferro MD [address] [place] [address] [phone] [place] [address] [email or web address] maria del rosario 01/21/2026 12:00 PM EST Telemedicine [place] [facility] [address] [address] Ana Vallejo MD [address] [place] [address] [email or web address] documented as of this encounter Procedures Procedure Name Priority Date/Time Associated Diagnosis Comments CT NECK OUTSIDE (NO INTERPRETATION) Routine 10/09/2011 12:15 AM EST documented in this encounter Results * CT Neck Outside (No Interpretation) (10/09/2011 12:15 AM EST) Narrative [facility] IMG INTERFACES - 01/11/2019 3:12 PM EST This study is for PACS storage only and not for interpretation. us Chiki Ferro MD IMG OUTSIDE IMAGING W/OUT INTER PRETATION Final Result [facility] IMG INTERFACES documented in this encounter Visit Diagnoses Not on filedocumented in this encounter Additional Source Comments The information contained in this document represents components of the legal health record. It is not the complete legal health record.[facility]
--- OUTSIDE RECORDS SUMMARY | 2011-10-12 01:00 | XMS_ITS | Encounter Summary ---
Author Organization [facility] Address [address] [address] Phone Care Team Providers Care Manager Global Communications Name Role Phone Unavailable Primary Care Provider Unavailabl e Reason for Visit * MRI/CAT Scan - Closed Specialty Diagnoses / Procedures Referred By Contac t Referred To Contact Procedures CT Spine (Bone) Focus Outside (No Interpretation) Chiki Ferro MD [address] [place] [phone] [place] [address] Phone: tel: fax: mailto:[email or web address] Referral ID Status Reason Start Date Expiration Date Visits Re quested Visits Authorized [id number] Closed 01/11/2019 01/11/2020 1 1 Encounter Details Date Type Department Care Team (Late st Contact Info) Description 10/12/2011 Hospital Encounter [facility] [address] [place] [address] Chiki Ferro MD [address] [place] [phone] [place] [address] [email or web address] Social History Tobacco Use Types Packs/Day [...] Info) Description 12/04/2025 2:00 PM EST Telemedicine [facility] [address] [place] [address] 835 [place] [address] Chiki Ferro MD [address] [place] [address] [phone] [place] [address] [email or web address] 01/21/2026 12:00 PM EST Telemedicine [facility] [address] [address] Ana Vallejo MD [address] [place] [id number] [email or web address] documented as of this encounter Procedures Procedure Name Priority Date/Time Associated Diagnosis Comments CT SPINE (BONE) OUTSIDE (NO INTERPRETATION) Routine 10/12/2011 12:00 AM EST documented in this encounter Results * CT Spine (Bone) Focus Outside (No Interpretation) (10/12/2011 12:00 AM EST) Narrative [facility] INTERFACES - 01/11/2019 3:12 PM EST This study is for PACS storage only and not for interpretation. us Chiki Ferro MD IMG OUTSIDE IMAGING W/OUT INTER PRETATION Final Result [facility] documented in this encounter Visit Diagnoses Not on filedocumented in this encounter Additional Source Comments The information contained in this document represents components of the legal health record. It is not the complete legal health record.[facility]
--- NOTE | 2025-09-10 16:30 | A.OFFVIS_ITS ---
Vital Signs 09/10/25 16:30 Height 5 ft 9 in BMI Reason not done Palliative Care Patient BP not taken reason Medical Reason Intake Visit Reasons: G tube change 18 F Intake Note: Here for G tube change. [employer] Officer Required: No Accompanied by: Self / Same As Patient Allergies latex (LATEX) Allergy (Intermediate, Verified 09/10/25 16:31) HIVES strawberry (STRAWBERRY) Allergy (Intermediate, Verified 09/10/25 16:31) HIVES HPI Comments Details: Patient presents today for replacement of his jejunostomy tube. The tube has been functioning well with no particular problems. The patient was recently hospitalized for pneumonia at [facility]. Apparently the tube was changed at that time. [facility] Medical History Fever Aspiration pneumonia due to gastric secretions Neurogenic bladder Asthma Quadriparesis TBI (traumatic brain injury) History of pulmonary embolism Surgical History History of gastrostomy (06/02/20) History of throat surgery (02/2019) History of brain surgery Family History Mother Interstitial lung disease Father Esophageal cancer DMII (diabetes mellitus, type 2) Social History Household Members: Family Housing: House Alcohol intake: never Patient Tobacco Use Status: Former Tobacco user e-Cigarette/Vaping Use: Never Used Second Hand Smoke Exposure: Yes service: No Current occupational status: disabled Cognitive needs: Yes (big wheelchair) Hearing needs: No Vision needs: No Review of Systems Const Unobtainable due to mental condition Physical Exam Const Other: Wheelchair-bound, nonverbal General: awake and patient obtunded Nutritional Appearance: well nourished Orientation/consciousness: patient obtunded Limitations: wheelchair Resp Effort & Inspection: normal respiratory effort Auscultation: rhonchi GI Other: Gastrostomy tube in the left upper quadrant. Old tube was removed after deflating balloon. Attempted to replace with 18 Congolese tube however tube would not pass. Next a 16 Congolese tube was attempted to be placed however tube could not pass due to stricture at the skin level. Sixteen Congolese coude catheter was able to be passed and balloon inflated. Tube was able to be flushed easily. The balloon was inflated with 15 mL of saline. Skin Other: Warm and dry Neuro General: patient obtunded Assessment & Plan Assessment & Plan (1) Malfunction of gastrostomy tube: Code(s): K94.23 - Gastrostomy malfunction Category: Surgical Plan The usual gastrostomy tube was then able to be passed due to stricture at the skin site. I was able to pass a coude catheter 16 Congolese which easily passed into the stomach. Arrangements will be made for replacement of this tube in the OR under sedation with dilation of the gastrostomy site to allow passage of an 18 Congolese G-tube. Discussed with the patient's family in she is agreeable to proceeding with the procedure in the OR. Coding Level of Care Code Est Pt Level 3 (83576) Diagnoses Malfunction of gastrostomy tube K94.23
--- OUTSIDE RECORDS SUMMARY | 2025-09-10 20:09 | XMS_ITS | Encounter Summary ---
Author Organization [facility] Address [address] [facility] [address] [place] [address] Phone Care Team Providers Care Appliquer Zigzag Name Role Phone Martir Espino Primary Care Provider + Luis Farah MD, DDS Unavailable [phone] Lissy Harris DMD Unavailable Encounter Details Date Type Department Care Team (Late st Contact Info) Description 01/11/2019 Procedure Pass [facility] General Imaging 55 [place] [address] Social History Tobacco Use Types Packs/Day Years [...] Info) Description 12/04/2025 2:00 PM EST Telemedicine [facility]covery Clinic 55 [facility] [address] [place] [address] Chiki Ferro MD 55 [facility] [phone] [place] [address] [email or web address] maria del rosario 01/21/2026 12:00 PM EST Telemedicine [facility] [place] [address] [place] [address] Ana Vallejo MD [address] [place] [address] [email or web address] documented as of this encounter Visit Diagnoses Not on filedocumented in this encounter Care Teams Appliquer Zigzag Relationship Specialty Start Date End Date Martir Espino PA [address] [place] [address] PCP - General 12/29/18 Luis Farah MD, DDS [address] [place] [address] [email or web address] molder 11/06/21 Lissy Harris DMD [address] [place] [phone] [email or web address] Dentist Dental Patient Liaison 06/08/22 documented as of this encounter Additional Source Comments The information contained in this document represents components of the legal health record. It is not the complete legal health record.[facility]
--- OUTSIDE RECORDS SUMMARY | 2025-09-10 20:09 | XMS_ITS | Encounter Summary ---
Author Organization [facility] Address [address] [address] Phone Care Team Providers Care Numerical Control Machine Operator Name Role Phone Martir Espino Primary Care Provider + Luis Farah MD, DDS Unavailable [phone] Lissy Harris DMD Unavailable Encounter Details Date Type Department Care Team (Late st Contact Info) Description 11/24/2021 Procedure Pass [facility] MRI, Lunder 6 [address] [facility], 6th [place] [address] Social History Tobacco Use Types Packs/Day Years [...] Department Care Team (Late Contact Info) Description 12/04/2025 2:00 PM EST Telemedicine [facility] Neuro[facility]covery Clinic [address] [place] [address] Chiki Ferro MD 55 [facility] [id number] [place] [address] [email or web address] 01/21/2026 12:00 PM EST Telemedicine [facility] [address] [place] [address] Ana Vallejo MD [address] [place] [address] [email or web address] documented as of this encounter Visit Diagnoses Not on filedocumented in this encounter Care Teams Numerical Control Machine Operator Relationship Specialty Start Date End Date Martir Espino PA [address] [place] [address] PCP - General 12/29/18 Luis Farah MD, DDS 55 [facility] [id number] [place] [address] [email or web address] assistant 11/06/21 Lissy Harris, JAROCHO 165 [facility] [address] [place] [address] [email or web address] Dentist Dental Remelt Pan Tank Operator 06/08/22 documented as of this encounter Additional Source Comments The information contained in this document represents components of the legal health record. It is not the complete legal health record.[facility]
--- OUTSIDE RECORDS SUMMARY | 2025-09-10 20:09 | XMS_ITS | Encounter Summary ---
Author Organization [facility] Address [address] [address] Phone Care Team Providers Care Track Machine Operator Repairer Name Role Phone Martir Espino Primary Care Provider + Luis Farah MD, DDS Unavailable [phone] Lissy Harris DMD Unavailable Encounter Details Date Type Department Care Team (Late st Contact Info) Description 11/24/2021 Procedure Pass [facility] MRI, Lunder 6 55 [facility], 6th [place] [address] Social History Tobacco Use Types Packs/Day Years [...] Info) Description 12/04/2025 2:00 PM EST Telemedicine [facility] [address] [place] [address] Chiki Ferro MD 55 [facility] [id number] [place] [address] [email or web address] 01/21/2026 12:00 PM EST Telemedicine [facility] [address] [place] [address] Ana Vallejo MD [address] [place] [address] [email or web address] as of this encounter Visit Diagnoses Not on filedocumented in this encounter Care Teams Track Machine Operator Repairer Relationship Specialty Start Date End Date Martir Espino PA [address] [place] [address] PCP - General 12/29/18 Luis Farah MD, DDS 55 [facility] [id number] [place] [address] [email or web address] manager 11/06/21 Lissy Harris, JAROCHO [address] [facility] [address] [place] [address] [email or web address] Dentist Dental Traffic Division Commanding Officer 06/08/22 documented as of this encounter Additional Source Comments The information contained in this document represents components of the legal health record. It is not the complete legal health record.[facility]
--- OUTSIDE RECORDS SUMMARY | 2025-09-10 20:09 | XMS_ITS | Clinical Summary ---
Author Organization [facility] Address [address] [address] Phone Care Team Providers Care Offset Press Operator Helper Name Role Phone Martir Espino Primary Care Provider + Luis Farah MD, DDS Unavailable [phone] Lissy Harrsi DMD Unavailable Allergies Active Allergy Reactions Criticality Noted Date Comments Latex Rash Low 09/19/2016 Keyser 11/24/2021 Adhesive 11/24/2021 Medications AMANTADINE HCL, BULK, MISC by Miscellaneous route. Active albuterol 2.5 mg /3 mL (0.083 %) nebulizer solution USE 1 VIAL IN NEBULIZER 4 TIMES DAILY NEEDED FOR 90 DAYS 1 08/13/20 19 Active XARELTO 20 mg Tab TAKE 1 TABLET BY MOUTH ONCE DAILY WITH FOOD 2 08/13/20 19 Active omega 1-jvc-mdw-fis h oil 1,000 mg (120 mg-180 mg) Cap [...] hours as needed for fever. 473 mL 10/08/20 22 Active amantadine HCl (SYMMETREL) 50 mg/5 mL solutionIndic ations:Trauma tic brain injury with loss of consciousness , sequela Take 20 mL (200 mg total) by mouth 2 (two) times a day. 473 mL 3 08/10/20 24 Active levETIRAcetam (KEPPRA) 750 MG IMMEDIATE release tabletIndicat ions:Traumati c brain injury with loss of consciousness , sequela Take 1 tablet by mouth once daily 30 tablet 11 07/31/20 25 Active amantadine HCl (SYMMETREL) 100 mg tabletIndicat ions:Traumati c brain injury with loss of consciousness , sequela TAKE 2 TABLETS BY MOUTH TWICE DAILY.(IN THE MORNING AND EARLY AFTERNOON) 120 tablet 08/19/20 25 Active amantadine HCl (SYMMETREL) 100 mg tabletIndicat ions:Traumati c brain injury with loss of consciousness , sequela TAKE 2 TABLETS BY MOUTH TWICE DAILY (IN THE MORNING AND EARLY AFTERNOON) 120 tablet 07/19/20 25 025 Discontinued Active Problems Problem Noted Date Diagnosed Date 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 Encounters Date Type Department Care Team Description 08/16/2025 Telephone [facility] [address] [facility], [address] [place] [address] Salima Wangen [place] 08/15/2025 Refill [facility] [address] [place] [address] Chiki Ferro MD Medication Refill 07/31/2025 Refill [facility] Department of Neurology 55 [place] [facility], 8th Floor, [address] [place] [address] Chiki Ferro MD Medication Refill 07/17/2025 11:30 AM EDT Telemedicine [facility] [address] [address] Ana Vallejo MD Traumatic brain injury, with unknown loss of consciousness status, subsequent encounter (Primary Dx) 07/09/2025 Refill [facility] [address] [place], [place] [address] [place] [address] Chiki Ferro MD Medication Refill 06/28/2025 Telephone [facility] Department of Neurology 55 [place] [facility], 8th Floor, [address] [place] [address] Chiki Ferro MD from Last 3 Months Immunizations Immunization Administration [...] [facility] 55 [facility] 835 [place] [address] Chiki Ferro MD 55 [facility] [id number] [place] [address] [email or web address] 01/21/2026 12:00 PM EST Telemedicine [facility] [address] [place] [address] Ana Vallejo MD [address] [place] [address] [email or web address] Health Maintenance Due Date Last Done Comments CREATININE LEVEL 1992 Dental Prophylaxis 1992 DEPRESSION SCREENING 2004 HEPATITIS C SCREENING 2010 HIV ONE-TIME SCREENING (18-65 YEARS) 2010 Dental Oral Exam 12/09/2022 06/07/2022 Dental X-Ray: Bitewings 06/08/2023 06/07/2022 INFLUENZA VACCINE (#1) 2025 , 09/07/2023, 09/02/2022, Additional history exists COVID-19 VACCINE ( season) 2025 10/01/2024, 10/19/2021, 04/04/2021, Additional history exists Adult Td,Tdap Booster 10/22/2029 10/22/2019 SMOKING STATUS SCREENING (Every 5 Years) 04/29/2030 04/29/2025 PNEUMOCOCCAL VACCINES (0-49 years) Aged Out 01/18/2025, 10/22/2016 No longer eligibl e based on patient's age to complete this topic HEPATITIS A VACCINES Aged Out No long [...] Procedure Name Priority Date/Time Associated Diagnosis Comments [place] INTRAORAL - COMPLETE SERIES OF RADIOGRAPHIC IMAGES Routine 06/07/2022 9:00 AM EDT Visit for dental examination [place] COMPREHENSIVE ORAL EVALUATION - NEW OR ESTABLISHED PATIENT Routine 06/07/2022 9:00 AM EDT Visit for dental examination from Last 3 Months or Most Recently Relevant to Health Maintenance Insurance [facility] MED[facility]ARE REPLACEMENT [facility] MED[facility] REPLACEMENT [facility] MED[facility]PLACEMENT [facility] MEDICARE [facility]PLACEMENT [facility] [place] [id number] [facility] [place] [id number] [facility] MEDICARE REPLACEMENT [facility] [place] [address] [facility] [place] [address] [facility] 100/50/50 [facility] 50/50 Advance Directives For more information, please contact: [phone] (9AM - 5PM [facility], Tuesday-Tuesday) * Full Code (Latest Code Status on File) Date Activated Date Inactivated Comments 10/08/2022 8:00 AM Question Answer Comments Code Status Confirmed With: Patient * Full Code Date Activated Date Inactivated Comments 11/24/2021 12:45 PM 10/08/2022 8:00 AM Question Answer Comments Code Status Confirmed With: Family Care Teams Offset Press Operator Helper Relationship Specialty Start Date End Date Martir Espino PA [address] [place] [address] PCP - General 12/29/18 Luis Farah MD, DDS [address] [place] [address] [email or web address] manager 11/06/21 Lissy Harris DMD [address] [address] [email or web address] Dentist Dental Shaker Screen Operator 06/08/22 Additional Source Comments The information contained in this document represents components of the legal health record. It is not the complete legal health record.[facility]
--- OUTSIDE RECORDS SUMMARY | 2025-09-10 20:10 | XMS_ITS | Clinical Summary ---
Author Organization [facility] Address [address] [place] [address] Care Team Providers Care Ocean Freight Forwarder Name Role Phone Martir Espino Primary Care Provider Surgical History Surgery Date Site/Laterality Comments OTHER SURGICAL HISTORY PROCEDURE: IN UNLISTED MUSCULOSKELETAL PROCEDURE HEAD OTHER SURGICAL HISTORY PROCEDURE: IN GASTRIC INTUBATION DX & ASPIRATJ MULTIPLE SPEC Medical History Medical History Date Comments TBI (traumatic brain injury) (CMS/HCC V24, CMS/HCC V28) DX:TBI (traumatic brain inju ry) ([facility]) Social History Tobacco Use Types [...] of 3 - 19+ 3-dose series) 2011 HPV Vaccines (1 - 3-dose SCD M series) 2019 Depression Screening 11/21/2024 COVID-19 Vaccine (1 - 2023-2 5 season) 2025 Influenza Vaccine (#1) 2025 RSV Immunization Adult Patie nts (1 - 1-dose 75+ series) 2067 HIB Vaccines Aged Out No longer eligi [...] age to complete this topic Care Teams Ocean Freight Forwarder Relationship Specialty Start Date End Date Martir Espino PA PCP - General Internal Medicine 10/16/19
--- OUTSIDE RECORDS SUMMARY | 2025-09-10 20:10 | XMS_ITS | Data Portability ---
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 Orders: rapid SARS CoV 2 Ag, QL IA, respiratory specimen: Performed rapid flu (A+B): Performed [facility] Medication Orders: Solu-Medrol (PF) 125 mg/2 mL solution for injection: Administered ...................... ...................... ...................... ...................... ...................... ...................... ......... [facility] Consulted: Sade Capps ...................... ...................... ...................... ...................... ...................... ...................... ......... Disposition: Fulfilled SADE CAPPS MD [address] [facility] [facility],[address], [place], [address], [employer] 06/09/2025 17:14:08 07/08/2025 text/html CRC Nurse Triage Notes (Jeffrey Rosario): Reason For Request: Patient temp 100.4, and heart rate seems high. Denies: Increased work of breathing/labored with or without fever Unable to speak in full sentences without distress Discoloration of skin -cyanosis Needs to sleep sitting up, can t catch breath Shortness of breath in setting of confusion Chief Complaints: Fever, Heart Rate Problems PMH: Para or Quadriplegia, COPD/Asthma, Asthma, Pneumonia, Epilepsy/Seizure Disorder PMH Reviewed at 07/08/2025 - : Allergies Reviewed at 07/08/2025 - : Comments: Additional PMH: Traumatic Brain Injury (TBI) 34 y.o male complains of Fever, Heart Rate Problems Patient's mother calling reporting that patient's heart rate [...] Mother reports patient seems to be breathing a little heavier then normal , but oxygen saturation is 96-97%. Mother reports patient is wheelchair bound at baseline and does not speak much, states he only answers basic yes or no medications. I provided information on the mobile health provider response time and advised the patient and/or caregiver to monitor reported signs and symptoms. I discussed the warning signs of when to seek emergency care -Yudy Rosario RN Wool [employer] Organization Information for Faisal Shah Business Legal Name: [employer]. Address: [address] [place] [address], Filter Tender: David Douglass MD CLIA No.: [id number] [employer] POC Test Results from Faisal Shah Rapid COVID antigen (14:28:43) COVID: - Rapid influenza antigen (14:28:45) Flu: - ...................... ...................... ...................... ...................... ...................... ...................... ......... Wool Carder Note From Faisal Shah: Dispatched to the [...] moist, abd soft non tender/distended, lungs CTA, -edema/swelling, Rapid COVID/FLU (-), Afebrile. Pt was assessed. Rapid test conducted. [facility] consulted. Red flags discussed. ALL times are approx. [facility] Lab Orders: rapid flu (A+B): Performed rapid SARS CoV 2 Ag, QL IA, respiratory specimen: Performed ...................... ...................... ...................... ...................... ...................... ...................... ......... [facility] Consulted: Neetu Bauman ...................... ...................... ...................... ...................... ...................... ...................... ......... Disposition: Fulfilled Neetu Bauman MD [address] [place] [address],[address], [place], [address], [employer] 07/08/2025 16:45:15 08/14/2025 text/html ROS as noted in the HPI CRC Nurse Triage Notes (Yady Pinedo): Reason For Request: PT's mother reporting an on/off fever going on 2-3 days Denies: Cosme Flash, circumferential cosme Cosme reported with black tissue to the area Open skin area after a fall with uncontrolled bleeding Abscess/infection with streaking noted, presence of fever or without Chief Complaints: Fever PMH: Para or Quadriplegia, COPD/Asthma, Asthma, Pneumonia, Epilepsy/Seizure Disorder PMH Reviewed at 08/14/2025:48 Allergies Reviewed at 08/14/2025:48 Comments: 35 y.o male complains of Fever Patients mother calling in to place a referral Patient with a TBI she is concerned patient is storming vs infection, he's been having fevers on/off for 2 days Patient is not vent/trach dependent, he does no have a grace or SPT, he woids in a brief- he does have a gtube Hisotry of aspiration PNA, however, no respiratory symptoms or concerns at this time NO concerns for a UTI, denies dark, concentrated or malodorous urine He is moving his bowels without difficuly Patient can blink and grasp to simple questions, and denies any pain Patitn T max is 102, comes down with tylenol but then peaks again Patients mother would like him evaluated. I provided information on the mobile health provider response time and advised the patient and/or caregiver to monitor reported signs and symptoms. I discussed the warning signs of when to seek emergency care. Wool Carder Organization Information for Souleymane Olvera [employer] Legal Name: [facility] Address: [address] [place] [address], RIVKA Ramirez [address], Filter Tender: Christopher Cardozo MD CLIA No.: [id number] [employer] POC Test Results from Souleymane Olvera Rapid influenza antigen (17:01:02) Flu: - Rapid COVID antigen (17:01:02) COVID: - CRC Nurse Triage Notes (Yady Pinedo): Reason For Request: PT's mother reporting an on/off fever going on 2-3 daysDenies: Cosme Flash, circumferential cosme Cosme reported with black tissue to the area Open skin area after a fall with uncontrolled bleeding Abscess/infection with streaking noted, presence of fever or without Chief Complaints: FeverPMH: Para or Quadriplegia, COPD/Asthma, Asthma, Pneumonia, Epilepsy/Seizure DisorderPMH Reviewed at 08/14/2025:48Allergies Reviewed at 08/14/2025:48Comments: 35 y.o male complains of Fever Patients mother calling in to place a referralPatient with a TBIshe is concerned patient is storming vs infection, he's been having fevers on/off for 2 daysPatient is not vent/trach dependent, he does no have a grace or SPT, he voids in a brief- he does have a G tubeHistory of aspiration PNA, however, no respiratory symptoms or concerns at this timeNO concerns for a UTI, denies dark, concentrated or malodorous urineHe is moving his bowels without difficultyPatient can blink and grasp to simple questions, and denies any painPatient T max is 102, comes down with tylenol but then peaks againPatients mother would like him evaluated. I provided information on the mobile health provider response time and advised the patient and/or caregiver to monitor reported signs and symptoms. I discussed the warning signs of when to seek emergency care. Urine Dipstick (17:58:47) Urine leukocytes: -JANETTE Urine nitrites: -NIT Urine urobilinogen: 0.2URO Urine protein: -PRO Urine pH: 5.0pH Urine blood: -BLO Urine specific gravity: 1.000SG Urine ketones: -KET Urine bilirubin: -NIURKA Urine glucose: -GLU ...................... ...................... ...................... ...................... ...................... ...................... ......... [employer]er Note From Souleymane Olvera: Patient in wheelchair. Family reports patient has had fevers each morning for the last seven days, had been on azithromycin until seven days ago to p revent pneumonia . Family reports respiratory symptoms have subsided, are concerned about fevers. Family also reports patient appears uncomfortable, grimacing, and making noises in the morning. Patient s family reports administering Tylenol, highest fever recorded 102 this morning. Family reports possibly more urine production than normal. Patient usually incontinent in briefs. No odor or discoloration noted to urine. Family repots patient acting at baseline now, sleeping at times. Patient nonverbal. Patient pink warm dry lung sounds clear negative increased work of breathing, abdomen, soft, no grimacing noted, extremities unremarkable. Test administered as ordered without complication. [facility] patient to [facility]. 911 system activated, report to EMS on scene. [facility] to [place] [facility]. [facility] Lab Orders: rapid SARS CoV 2 Ag, QL IA, respiratory specimen: Performed rapid flu (A+B): Performed urinalysis, dipstick: Performed ...................... ...................... ...................... ...................... ...................... ...................... ......... [facility] Consulted: Heidi Abarca ...................... ...................... ...................... ...................... ...................... ...................... ......... Disposition: Fulfilled HEIDI ABARCA MD [address] [facility], [place], [address], PAZ GARCIA 08/14/2025 18:53:59
--- OUTSIDE RECORDS SUMMARY | 2025-09-10 20:10 | XMS_ITS | Encounter Summary ---
Author Organization [facility] Address [address] [facility] [address] [place] [address] Phone Care Team Providers Care Lead Supply Worker Name Role Phone Martir Espino Primary Care Provider + Luis Farah MD, DDS Unavailable [phone] Lissy Harris DMD Unavailable Reason for Visit * Reason Comments Medication Refill Encounter Details Date Type Department Care Team (Late st Contact Info) Description 09/30/2023 Refill [facility] Department of Neurology [address] [place] [address], 8th Floor, [address] [place] [address] Chiki Ferro MD [address] [place] [address] [id number] [place] [address] [email or web address] Medication Refill Social History Tobacco Use Types [...] Info) Description 12/04/2025 2:00 PM EST Telemedicine [facility] [address] [facility] [address] [place] [address] Chiki Ferro MD [address] [facility] [id number] [place] [address] [email or web address] 01/21/2026 12:00 PM EST Telemedicine [facility] [place] [address] [place] [address] Ana Vallejo MD [facility] [place] [address] [email or web address] documented as of this encounter Visit Diagnoses Not on filedocumented in this encounter Care Teams Lead Supply Worker Relationship Specialty Start Date End Date Martir Espino PA [facility] [place] [address] PCP - General 12/29/18 Luis Farah MD, DDS [address] [facility] WRN-1201 [place] [address] [email or web address] pre coder 11/06/21 Lissy Harris DMD [address] [phone] [email or web address] Dentist Dental Revenue Manager 06/08/22 documented as of this encounter Additional Source Comments The information contained in this document represents components of the legal health record. It is not the complete legal health record.[facility]
--- OUTSIDE RECORDS SUMMARY | 2025-09-10 20:10 | XMS_ITS | Continuity of Care Document ---
Author Name inst[facility], Medical Address [address] [place] [address] Organization Unknown Address [address] [place] [address] Medications No known medications Problems No known problems
--- OUTSIDE RECORDS SUMMARY | 2025-09-10 20:10 | XMS_ITS | Encounter Summary ---
Author Organization [facility] Address [address] [facility] [address] [place] [address] Phone Care Team Providers Care Mini Shifter Name Role Phone Martir Espino Primary Care Provider + Luis Farah MD, DDS Unavailable [phone] Lissy Harris DMD Unavailable Encounter Details Date Type Department Care Team (Late st Contact Info) Description 06/28/2025 Telephone [facility] Department of [place]rology [address] [facility], 8th Floor, [address] [place] [address] Chiki Ferro MD [address] [place] [address]S-175-300 [place] [address] [email or web address] Social History Tobacco Use Types Packs/Day Years [...] as of this encounter Progress Notes * Chelsey [place] - 06/28/2025 2:44 PM EDT WHO: Josefa, nurse from [facility] WHAT: stated pt was recently hospitalized for pneumonia at [facility], was discharged to home yesterday Josefa [...] let Dr. Ferro know. Best callback #: [phone] documented in this encounter Plan of Treatment Upcoming Encounters Date Type Department Care Team (Late st Contact Info) Description 12/04/2025 2:00 PM EST Telemedicine [facility] [address] [place] [address] [address] [place] [address] Chiki Ferro MD [address] [place] [address] [id number] [place] [address] [email or web address] maria del rosario 01/21/2026 12:00 PM EST Telemedicine [facility] [place] [address] [place] [address] Ana Vallejo MD [address] [place] [address] [email or web address] documented as of this encounter Visit Diagnoses Not on filedocumented in this encounter Care Teams Mini Shifter Relationship Specialty Start Date End Date Martir Espino PA [address] [place] [address] PCP - General 12/29/18 Luis Farah MD, DDS [address] [place] [address] [email or web address] supervisor wall mirror department 11/06/21 Lissy Harris DMD [address] [place] [phone] [email or web address] Dentist Dental Lead Ramp Service Man 06/08/22 documented as of this encounter Additional Source Comments The information contained in this document represents components of the legal health record. It is not the complete legal health record.[facility]
--- OUTSIDE RECORDS SUMMARY | 2025-09-10 20:11 | XMS_ITS | Encounter Summary ---
Author Organization [facility] Address [address] [facility] [address] [place] [address] Encounters * CPT with Medical [facility] at [employer] on 2025-08-14 { reasonForRequest : PT's mother reporting an on/off fever going on 2-3 days ,& quot;patientReports : , denies :[ Cosme Flash, circumferential cosme , Cosme reported with black tissue to the area , Open skin area after a fall with uncontrolled bleeding , Abscess/infection with streaking noted, presence of fever or without ], chiefComplaints : Fever , pmh : Para or Quadriplegia, COPD/Asthma, Asthma, Pneumonia, Epilepsy/Seizure Disorder , allergies : Latex, [place] , otherAllergies :null, painAssessment : , visitOutcome : , additionalComments : 35 y.o male complains of Fever\ n\nPatients mother calling in to place a referral\nPatient with a TBI\nshe is concerned patient is \ storming\ vs infection, he's been having fevers on/off for 2 days\nPatient is not vent/trach dependent, he does no have a grace or SPT, he woids in a brief- he does have a gtube\nHisotry of aspiration PNA, however, no respiratory symptoms or concerns at this time\nNO concerns for a UTI,denies dark, concentrated or malodorous urine\nHe is moving his bowels without difficuly\nPatient can blink and grasp to simple questions, and denies any pain\nPatitn T max is 102, comes down with tylenol but then peaks again\nPatients mother would like him evaluated.\n\nI provided information on e mobile health provider response time and advised the patient and/or caregiver to monitor reportedsigns and symptoms. I discussed the warning signs of when to seek emergency care. } Patient in wheelchair. Family reports patient has had fevers each morning for the last seven days, had been on azithromycin until seven days ago to ???prevent pneumonia???. Family reports respiratorysymptoms have subsided, are concerned about fevers. Family also reports patient appears uncomfortable, grimacing, and making noises in the morning. Patient???s family reports administering Tylenol, highest fever recorded [...] unremarkable. Test administered as ordered without complication. [facility] [place] patient to [place]. 911 system activated, report to EMS on scene. [facility] [place] [facility]. ORAL_MEDICATION, POC_FLU_STREP, COVID_TEST Written by Medical inst[facility] on 2025-08-14
--- OUTSIDE RECORDS SUMMARY | 2025-09-10 20:11 | XMS_ITS | Data Portability ---
Author Organization [place] [facility], [facility] Address [address] [place] [address] Care Team Providers Care Operations Manager/Coordinator Name Role Phone ASHISH KAISER Primary Care Provider ASHISH KAISER Referring Provider [phone] Assessment Encounter Date Assessment Date Assessment LastModified [...] Recorded Time Impacted cerumen of bilateral ears [id number] 08 Active 2024 Brenda cutler [facility] 11:15:56 Problem Notes None recorded. Procedures Surgical History Date Name Laterality Status Provider Name and Address Organization Details Recorded Time Cerumen removal without microscope bilat completed Brenda Akhtar [place] [facility] 02/07/2025 11:14:36 Imaging Results None recorded. Procedure Notes None recorded. Medical Equipment None Reported. Allergies Allergen ID Allergen Name Allergen Category Reaction Reaction Severity Criticality Documentation Date Start Date Code Code System Note Provider Name and Address Organization Details Recorded Time 628850 strawberr y allergeni c extract food Not available Not available Not available 02/07/2025 59741 4 RxNorm Anaguero cutler [place] - [facility] 5 10:57:57 986822 Latex (substanc e) environme nt,medica tion Not available Not available Not available 02/07/2025 85626 8007 SNOMED Ana cutler [place] - [facility] 5 10:58:07 588842 adhesive tape environme nt,medica tion Not available Not available Not available 02/07/2025 Ana cutler [place] [facility] 5 10:58:19 Medications Name Sig Start Date [...] Reported. Medical History Condition Response Anxiety Y Stroke Y Depression Y Asthma Y Past Encounters Encounter ID Performer Location Encounter Start Date Encounter Closed Date Diagnosis/Indication Diagnosis SNOMED-CT Code Diagnosis ICD10 Code Diagnosis IMO Codes Diagnosis Note [id number] BRENDA AKHTAR PA-C [facility] [address] [address] 02/07/2025 10:43:48 02/07/2025 11:02:49 Impacted cerumen of bilateral ears [id number] H61.23 Health Concerns Section Related Observation LastModified by Organization Detai ls LastModified Time None Recorded Concern Status LastModified by Organization Details LastModified Time None Recorded Advance Directives Directive None Recorded Payers Insurance Date Sequence Insurance Name Policy Number Policy Bravo Covered Member ID Bravo Member ID Guarantor Name 02/07/2025 1 [facility] - DOS ON OR AFTER 2023 - ONE CARE (MEDICARE REPLACEMENT/ADV ANTAGE - HMO) Kike Matson [id number] Kike Matson Notes Date Note Type Note Provider Name and Address Organization Details Recorded Time 02/07/2025 text/html ROS as noted in the HPI 34 year old male quadriplegic presents to the office for cerumen removal. He is accompanied by aides. CARL FABIAN MD [address] [place] [address], [phone], [facility] - [facility] 02/08/2025 08:47:04
--- OUTSIDE RECORDS SUMMARY | 2025-09-10 20:11 | XMS_ITS | Encounter Summary ---
Author Organization [facility] Address [address] [address] Phone Care Team Providers Care Construction Services Technician Name Role Phone Martir Espino Primary Care Provider + Luis Farah MD, DDS Unavailable [phone] Lissy Harris DMD Unavailable Encounter Details Date Type Department Care Team (Late Contact Info) Description 10/08/2022 Procedure Pass [facility] [address] [place] [phone] Social History Tobacco Use Types Packs/Day Years [...] Upcoming Encounters Date Type Department Care Team ([facility] Contact Info) Description 12/04/2025 2:00 PM EST Telemedicine [facility] [address] [place] [address] [address] [place] [address] Chiki Ferro MD [address] [facility] [id number] [place] [address] [email or web address] del rosario 01/21/2026 12:00 PM EST Telemedicine [facility] [address] [place] [address] Ana Vallejo MD [address] [place] [address] [email or web address] documented as of this encounter Visit Diagnoses Not on filedocumented in this encounter Care Teams Construction Services Technician Relationship Specialty Start Date End Date Martir Espino PA [address] [place] [address] PCP - General 12/29/18 Luis Farah MD, DDS [address] [facility] WRN-1201 [place] [address] [email or web address] flat breakdown processor 11/06/21 Lissy Harris, JAROCHO [address] [facility] [address] [place] [address] [email or web address] Dentist Dental Vp Marketing 06/08/22 documented as of this encounter Additional Source Comments The information contained in this document represents components of the legal health record. It is not the complete legal health record.[facility]
== END 2025-09-10 16:03 | disposition home or self-care (01) ==
LOC: HO.HGS 14:59
PROVIDERS: PCP Physician Assistant; Visit Provider Surgery
DX: K94.23 Gastrostomy malfunction (principal)
CPT/HCPCS: 99213

== ENCOUNTER → 2025-09-10 14:58 | Outpatient (BNVA) | payer OTHER, SELFPAY | PROVIDERS: PCP Physician Assistant; Visit Provider Surgery | DX: K94.23 Gastrostomy malfunction (principal) | CPT/HCPCS: 99212 ==

== ENCOUNTER 2025-09-12 10:09 | Outpatient (REF) | payer OTHER, SELFPAY ==
--- NOTE | ~2025-09-12 | US_ITS ---
EXAMINATION: US ABDOMEN LIMITED HISTORY: R74.8 - Abnormal levels of other serum enzymes TECHNIQUE: Real-time grayscale ultrasound imaging of the right upper quadrant was performed and images were reviewed. COMPARISON: There are no prior studies available for comparison. FINDINGS: Liver: The liver is normal in size. The liver demonstrates mildly increased echotexture, consistent with steatosis. No focal mass or intrahepatic biliary ductal dilatation is identified. There is normal hepatopedal flow in the portal vein. Gallbladder and biliary tree: The gallbladder is unremarkable, without evidence of calculi, wall thickening, or pericholecystic fluid. There is no sonographic Flynn sign. The common bile duct is normal in caliber measuring 2 mm. Right Kidney: The right kidney measures 10.9 cm in length. The right kidney is unremarkable, without evidence of masses, hydronephrosis, or calculi. Pancreas: The pancreas is obscured by bowel gas. Abdominal aorta and inferior vena cava: The visualized portions of the abdominal aorta and inferior vena cava are normal in caliber. There is no free fluid in the right upper quadrant. US/US abdomen limited IMPRESSION: Mild hepatic steatosis. The pancreas is not visualized. Electronically signed by: Josué Duran MD 09/12/2025 10:43 AM EDT
--- OUTSIDE RECORDS SUMMARY | 2025-09-12 11:57 | XMS_ITS | Clinical Summary ---
Author Organization [facility] Address [address] [place] [phone] Care Team Providers Care Charger Name Role Phone Martir Espino Primary Care Provider Surgical History Surgery Date Site/Laterality Comments OTHER SURGICAL HISTORY PROCEDURE: [place] UNLISTED MUSCULOSKELETAL PROCEDURE HEAD OTHER SURGICAL HISTORY PROCEDURE: [place] GASTRIC INTUBATION DX & ASPIRATJ MULTIPLE SPEC Medical History Medical History Date Comments TBI (traumatic brain injury) (CMS/HCC V24, CMS/HCC V28) DX:TBI (traumatic brain inju ry) ([facility]) Social History Tobacco Use Types [...] age to complete this topic Care Teams Charger Relationship Specialty Start Date End Date Martir Espino PA PCP - General Internal Medicine 10/16/19
--- OUTSIDE RECORDS SUMMARY | 2025-09-12 11:58 | XMS_ITS | Data Portability ---
Author Organization [place] - [facility], Allergy Address [address] [place] [address] Care Team Providers Care Log Data Technician Name Role Phone ASHISH KAISER Primary Care Provider ASHISH KAISER Referring Provider [phone] Assessment Encounter Date Assessment Date Assessment LastModified [...] Recorded Time Impacted cerumen of bilateral ears [id number] 08 Active 2024 Brenda cutler [facility] 11:15:56 Problem Notes None recorded. Procedures Surgical History Date Name Laterality Status Provider Name and Address Organization Details Recorded Time Cerumen removal without microscope bilat completed Brenda Akhtar [place] [facility] 02/07/2025 11:14:36 Imaging Results None recorded. Procedure Notes None recorded. Medical Equipment None Reported. Allergies Allergen ID Allergen Name Allergen Category Reaction Reaction Severity Criticality Documentation Date Start Date Code Code System Note Provider Name and Address Organization Details Recorded Time 505789 strawberr y allergeni c extract food Not available Not available Not available 02/07/2025 52554 4 RxNorm [place] cutler [place] - [facility] 5 10:57:57 767338 Latex (substanc e) environme nt,medica tion Not available Not available Not available 02/07/2025 00519 8007 SNOMED Ana cutler [place] - [facility] 5 10:58:07 577781 adhesive tape environme nt,medica tion Not available Not available Not available 02/07/2025 Ana cutler [place] [facility] 5 10:58:19 Medications Name Sig Start [...] ICD10 Code Diagnosis IMO Codes Diagnosis Note 39790 BRENDA AKHTAR PA-C [facility] [address] [address] 02/07/2025 10:43:48 02/07/2025 11:02:49 Impacted cerumen of bilateral ears [id number] 394093 H61.23 Health Concerns Section Related Observation LastModified by Organization Detai ls LastModified Time None Recorded Concern Status LastModified by Organization Details LastModified Time None Recorded Advance Directives Directive None Recorded Payers Insurance Date Sequence Insurance Name Policy Number Policy Bravo Covered Member ID Bravo Member ID Guarantor Name 02/07/2025 1 [facility] - DOS ON OR AFTER 2023 - ONE CARE (MEDICARE REPLACEMENT/ADV ANTAGE - HMO) Kike Matson [id number] Kike Matson Notes Date Note Type Note Provider Name and Address Organization Details Recorded Time 02/07/2025 text/html ROS as noted in the HPI 34 year old male quadriplegic presents to the office for cerumen removal. He is accompanied by aides. CARL FABIAN MD [address] [place] [address], [phone], [facility] - [facility] 02/08/2025 08:47:04
== END 2025-09-12 10:10 | disposition home or self-care (01) ==
LOC: HO.US 10:09
PROVIDERS: PCP Physician Assistant; Visit Provider Physician Assistant
DX: R74.8 Abnormal levels of other serum enzymes (principal)
CPT/HCPCS: 76705

== ENCOUNTER → 2025-09-12 10:11 | Outpatient (BNV) | payer OTHER, SELFPAY | PROVIDERS: PCP Physician Assistant; Visit Provider Radiology Diagnostic Radiology | DX: K76.0 Fatty (change of) liver, not elsewhere classified (principal) | CPT/HCPCS: 76705 ==

== ENCOUNTER 2025-09-17 15:02 | Outpatient (AMB) | payer OTHER, SELFPAY ==
--- OUTSIDE RECORDS SUMMARY | 2011-10-09 01:00 | XMS_ITS | Encounter Summary ---
Author Organization [facility] Address [address] [address] Phone Care Team Providers Care Kidney Trimmer Name Role Phone Unavailable Primary Care Provider Unavailabl e Reason for Visit * MRI/CAT Scan - Closed Specialty Diagnoses / Procedures Referred By Contac t Referred To Contact Procedures CT Spine (Bone) Focus Outside (No Interpretation) Chiki Ferro MD [address] [place] [phone] [place] [address] Phone: tel: fax: mailto:[email or web address] Referral ID Status Reason Start Date Expiration Date Visits Re quested Visits Authorized [id number] Closed 01/11/2019 01/11/2020 1 1 Encounter Details Date Type Department Care Team (Late st Contact Info) Description 10/09/2011 Hospital Encounter [facility] 55 [place] [address] Chiki Ferro MD [address] [place] [address]-175-300 [place] [address] [email or web address] du Social History Tobacco Use Types Packs/Day Years Used Date Smoking Tobacco: Former Cigarettes 1 8.2 0 07/11/2008 - 09/20/2016 Smokeless Tobacco: Never Alcohol Use Standard Drinks/Week Comments No 0 (1 standard drink = 0.6 oz pur e alcohol) Education Answer Date Recorded Are you interested in more education? Not on glendy e 03/18/2023 Are you concerned about learning? Not on file 03/18/2023 No 03/18/2023 No 03/18/2023 Digital Access Answer Date Recorded No 04/16/2023 No 04/16/2023 Reliable internet access at home? Not on file 04/16/2023 Device with a working camera? Not on file Sex and Gender Information Value Date Recorded Sex Assigned at Male 06/29/2021 8:23 AM EDT Legal Sex Male 12:23 PM EDT Gender Identity Male 06/29/2021 8:23 AM EDT Sexual Orientation Straight 06/29/2021 8: 23 AM EDT documented as of this encounter Plan of Treatment Upcoming Encounters Date Type Department Care Team (Late st Contact Info) Description 12/04/2025 2:00 PM EST Telemedicine [facility] [address] [place] [address] 835 [place] [address] Chiki Ferro MD [address] [place] [address] [phone] [place] [address] [email or web address]. maria del rosario 01/21/2026 12:00 PM EST Telemedicine [facility] [address] [address] Ana Vallejo MD [address] [place] [address] [email or web address] documented as of this encounter Procedures Procedure Name Priority Date/Time Associated Diagnosis Comments CT SPINE (BONE) OUTSIDE (NO INTERPRETATION) Routine 10/09/2011 12:00 AM EST documented in this encounter Results * CT Spine (Bone) Focus Outside (No Interpretation) (10/09/2011 12:00 AM EST) Narrative [facility] IMG INTERFACES - 01/11/2019 3:11 PM EST This study is for PACS storage only and not for interpretation. us Chiki Ferro MD IMG OUTSIDE IMAGING W/OUT INTER PRETATION Final Result [facility] IMG INTERFACES documented in this encounter Visit Diagnoses Not on filedocumented in this encounter Additional Source Comments The information contained in this document represents components of the legal health record. It is not the complete legal health record.[facility]
--- OUTSIDE RECORDS SUMMARY | 2011-10-09 01:15 | XMS_ITS | Encounter Summary ---
Author Organization [facility] Address 399 [facility] [address] [place] [address] Phone Care Team Providers Care Bird Trapper Name Role Phone Unavailable Primary Care Provider Unavailabl e Reason for Visit * MRI/CAT Scan - Closed Specialty Diagnoses / Procedures Referred By Contac t Referred To Contact Procedures CT Neck Outside (No Interpretation) Chiki Ferro MD [address] [place] [phone] [place] [address] Phone: tel: fax: mailto:[email or web address] Referral ID Status Reason Start Date Expiration Date Visits Re quested Visits Authorized [id number] Closed 01/11/2019 01/11/2020 1 1 Encounter Details Date Type Department Care Team (Late st Contact Info) Description 10/09/2011 12:15 AM EST Hospital Encounter [facility] [address] [place] [address] Chiki Ferro MD [address] [place] [phone] [place] [address] [email or web address] Social History Tobacco Use Types Packs/Day Years [...] Info) Description 12/04/2025 2:00 PM EST Telemedicine [facility] [address] [place] [address] 835 [place] [address] Chiki Ferro MD [address] [place] [address] [phone] [place] [address] MARY@[email or web address] maria del rosario 01/21/2026 12:00 PM EST Telemedicine [place] [facility] [address] [address] Ana Vallejo MD [address] [place] [address] [email or web address] u documented as of this encounter Procedures Procedure Name Priority Date/Time Associated Diagnosis Comments CT NECK OUTSIDE (NO INTERPRETATION) Routine 10/09/2011 12:15 AM EST documented in this encounter Results * CT Neck Outside (No Interpretation) (10/09/2011 12:15 AM EST) Narrative [facility] INTERFACES - 01/11/2019 3:12 PM EST This study is for PACS storage only and not for interpretation. us Chiki Ferro MD IMG OUTSIDE IMAGING W/OUT INTER PRETATION Final Result [facility] INTERFACES documented in this encounter Visit Diagnoses Not on filedocumented in this encounter Additional Source Comments The information contained in this document represents components of the legal health record. It is not the complete legal health record.[facility]
--- OUTSIDE RECORDS SUMMARY | 2011-10-12 01:00 | XMS_ITS | Encounter Summary ---
Author Organization [facility] Address [address] [address] Phone Care Team Providers Care Senior Project Manager Name Role Phone Unavailable Primary Care Provider Unavailabl e Reason for Visit * MRI/CAT Scan - Closed Specialty Diagnoses / Procedures Referred By Contac t Referred To Contact Procedures CT Spine (Bone) Focus Outside (No Interpretation) Chiki Ferro MD [address] [place] [phone] [place] [address] Phone: tel: fax: mailto:[email or web address] Referral ID Status Reason Start Date Expiration Date Visits Re quested Visits Authorized [id number] Closed 01/11/2019 01/11/2020 1 1 Encounter Details Date Type Department Care Team (Late st Contact Info) Description 10/12/2011 Hospital Encounter [facility] [address] [place] [address] Chiki Ferro MD [address] [place] [phone] [place] [address] [email or web address] Social History Tobacco Use Types [...] Info) Description 12/04/2025 2:00 PM EST Telemedicine [facility] [address] [place] [address] 835 [place] [address] Chiki Ferro MD [address] [place] [address] [phone] [place] [address] [email or web address] 01/21/2026 12:00 PM EST Telemedicine [facility] [address] [address] Ana Vallejo MD [address] [place] [phone] [email or web address] documented as of this encounter Procedures Procedure Name Priority Date/Time Associated Diagnosis Comments CT SPINE (BONE) OUTSIDE (NO INTERPRETATION) Routine 10/12/2011 12:00 AM EST documented in this encounter Results * CT Spine (Bone) Focus Outside (No Interpretation) (10/12/2011 12:00 AM EST) Narrative [facility] IMG INTERFACES - 01/11/2019 3:12 PM EST This study is for PACS storage only and not for interpretation. us Chiki Ferro MD IMG OUTSIDE IMAGING W/OUT INTER PRETATION Final Result [facility] IMG INTERFACES documented in this encounter Visit Diagnoses Not on filedocumented in this encounter Additional Source Comments The information contained in this document represents components of the legal health record. It is not the complete legal health record.[facility]
[2025-09-17 15:04] VITALS: BP 111/62; PULSE 67; O2SAT 94
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
--- OUTSIDE RECORDS SUMMARY | 2025-09-17 19:28 | XMS_ITS | Encounter Summary ---
Author Organization [facility] Address [address] [address] Phone Care Team Providers Care Lead Operator Name Role Phone Martir Espino Primary Care Provider + Luis Farah MD, DDS Unavailable [phone] [phone] Lissy Harris DMD Unavailable Encounter Details Date Type Department Care Team (Late st Contact Info) Description 11/24/2021 Procedure Pass [facility], [place] [address] [facility], 6th [place] [address] Social History Tobacco Use Types Packs/Day Years [...] Info) Description 12/04/2025 2:00 PM EST Telemedicine [facility] [address] [place] [address] Chiki Ferro MD 55 [facility] [id number] [place] [address] MARY@[email or web address]. [email or web address] del rosario 01/21/2026 12:00 PM EST Telemedicine [facility] [address] [place] [address] Ana Vallejo MD [address] [place] [address] [email or web address] u documented as of this encounter Visit Diagnoses Not on filedocumented in this encounter Care Teams Lead Operator Relationship Specialty Start Date End Date Martir Espino PA [address] [place] [address] PCP - General 12/29/18 Luis Farah MD, DDS 55 [facility] WRN-1201 [place] [address] [email or web address] bottle dealer 11/06/21 Lissy Harris, JAROCHO [address] [facility] [address] [place] [address] [email or web address] Dentist Dental Network Operations Technician 06/08/22 documented as of this encounter Additional Source Comments The information contained in this document represents components of the legal health record. It is not the complete legal health record.[facility]
--- OUTSIDE RECORDS SUMMARY | 2025-09-17 19:28 | XMS_ITS | Encounter Summary ---
Author Organization [facility] Address [address] [facility] [address] [place] [address] Phone Care Team Providers Care Private Branch Exchange Service Advisor Name Role Phone Martir Espino Primary Care Provider + Luis Farah MD, DDS Unavailable [phone] [phone] Lissy Harris DMD Unavailable Encounter Details Date Type Department Care Team (Late st Contact Info) Description 06/28/2025 Telephone [facility] [place]rology [address] [facility], 8th Floor, [address] [place] [address] Chiki Ferro MD [address] [place], [place] [id number] [place] [address] [email or web address] Social History Tobacco Use Types [...] 2:44 PM EDT WHO: Josefa, nurse from [facility] WHAT: stated pt was recently hospitalized for pneumonia at [facility], was discharged to home yesterday Josefa [...] let Dr. Ferro know. Best callback #: [phone] documented in this encounter Plan of Treatment Upcoming Encounters Date Type Department Care Team (Late st Contact Info) Description 12/04/2025 2:00 PM EST Telemedicine [facility] [address] [place] [address] 835 [place] [address] Chiki Ferro MD [address] [place] [address] [id number] [place] [address] [email or web address] maria del rosario 01/21/2026 12:00 PM EST Telemedicine [facility] [place] [address] [place] [address] Ana Vallejo MD [address] [place] [address] [email or web address] u documented as of this encounter Visit Diagnoses Not on filedocumented in this encounter Care Teams Private Branch Exchange Service Advisor Relationship Specialty Start Date End Date Martir Espino PA [address] [place] [address] PCP - General 12/29/18 Luis Farah MD, DDS [address] [place] [address] [email or web address] visual effects artist 11/06/21 Lissy Harris DMD [address] [place] [phone] PURVI@[email or web address].[facility] Dentist Dental Sheet Pile Hammer Operator 06/08/22 documented as of this encounter Additional Source Comments The information contained in this document represents components of the legal health record. It is not the complete legal health record.[facility]
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
--- OUTSIDE RECORDS SUMMARY | 2025-09-17 19:28 | XMS_ITS | Encounter Summary ---
Author Organization [facility] Address [address] [facility] [address] [place] [address] Phone Care Team Providers Care Shirt Creaser Name Role Phone Martir Espino Primary Care Provider + Luis Farah MD, DDS Unavailable [phone] Lissy Harris DMD Unavailable Encounter Details Date Type Department Care Team (Late st Contact Info) Description 01/11/2019 Procedure Pass [facility] 55 [place] [address] Social History Tobacco Use Types Packs/Day Years [...] Info) Description 12/04/2025 2:00 PM EST Telemedicine [facility] 55 [facility] 835 [place] [address] Chiki Ferro MD 55 [facility] [phone] [place] [address] [email or web address] maria del rosario 01/21/2026 12:00 PM EST Telemedicine [facility] [place] [address] [place] [address] Ana Vallejo MD [address] [place] [address] [email or web address] u documented as of this encounter Visit Diagnoses Not on filedocumented in this encounter Care Teams Shirt Creaser Relationship Specialty Start Date End Date Martir Espino PA [address] [place] [address] PCP - General 12/29/18 Luis Farah MD, DDS [address] [place] [address] [email or web address] hat cleaner 11/06/21 Lissy Harris DMD [address] [place] [phone] [email or web address] Dentist Dental Cutting And Printing Machine Operator 06/08/22 documented as of this encounter Additional Source Comments The information contained in this document represents components of the legal health record. It is not the complete legal health record.[facility]
--- OUTSIDE RECORDS SUMMARY | 2025-09-17 19:28 | XMS_ITS | Encounter Summary ---
Author Organization [facility] Address [address] [address] Phone Care Team Providers Care First Aid Instructor Name Role Phone Martir Espino Primary Care Provider + Luis aFrah MD, DDS Unavailable [phone] Lissy Harris DMD Unavailable Encounter Details Date Type Department Care Team (Late st Contact Info) Description 11/24/2021 Procedure Pass [facility] [place], Lunder 6 [address] [facility], 6th [place] [address] Social History Tobacco Use Types Packs/Day Years [...] Info) Description 12/04/2025 2:00 PM EST Telemedicine [facility] [address] [place] [address] Chiki Ferro MD 55 [facility] [id number] [place] [address] [email or web address] del [email or web address] 01/21/2026 12:00 PM EST Telemedicine [facility] [address] [place] [address] Ana Vallejo MD [address] [place] [address] [email or web address] documented as of this encounter Visit Diagnoses Not on filedocumented in this encounter Care Teams First Aid Instructor Relationship Specialty Start Date End Date Martir Espino PA [address] [place] [address] PCP - General 12/29/18 Luis Farah MD, DDS 55 [facility] [id number] [place] [address] [email or web address] tree tapping laborer 11/06/21 Lissy Harris, JAROCHO 165 [facility] [address] [place] [address] [email or web address] Dentist Dental Child Psychology Teacher 06/08/22 documented as of this encounter Additional Source Comments The information contained in this document represents components of the legal health record. It is not the complete legal health record.[facility]
--- OUTSIDE RECORDS SUMMARY | 2025-09-17 19:28 | XMS_ITS | Data Portability ---
Author Organization [facility], [facility] Address [address] [place] [address] Care Team Providers Care Contestant Coordinator Name Role Phone HIM CCA OTHER ASHISH [facility] Primary Care Provider [phone] Assessment Encounter Date Assessment Date Assessment LastModified by Organization Details LastModified Time 06/09/2025 06/09/2025 As noted, we tigist ochoa called to see this patient regarding concerns of cough and wheezing Evaluation in the field was performed by my manager image colleague, as noted above, I provided real-time [...] since coming home from the hospital. On manager image exam he is in no respiratory distress. [...] in mental status, worsening cough or sob Not available 06/09/2025 16:35:47 07/08/2025 07/08/2025 I provided real -time medical direction via phone for this encounter and was available for additional phone-based assistance as needed. I have reviewed and agree with the Assessment and Plan as documented by the Cupola Hoist Operator. Patient given the opportunity to ask questions. Our service contacted for an assessment of: fever As per above, patient with low grade temp and ? cough. HR in the low 100's. Taking Tylenol. Uses O2. No increased secretions or other issues . Per manager image on the scene, NAD, VSS, AF. No increased WOB. Please read the manager image note for their exam findings. COVID and [...] he was on azithromycin. Usually transports to [facility]. [address] [place] [address] POC UA finally able to be obtained [...] Assessment and Plan as documented by the Cupola Hoist Operator. We discussed the diagnostic uncertainty of home [...] Ag, QL IA, respiratory specimen 2024 025 [facility], [address] [place] [address], [id number] 5 19:23:33 rapid flu (A+B) 2024 025 [facility], [address] [place] [address], [id number] 19:23:34 urinalysis, dipstick 2024 025 [facility], [address] [place] [address], [id number] 5 19:23:34 rapid flu (A+B) 2024 025 [facility], [address] [place] [address], [id number] 5 17:31:59 rapid SARS CoV 2 Ag, QL IA, respiratory specimen 2024 025 [facility], [address] [place] [address], [id number] 5 17:32:16 rapid SARS CoV 2 Ag, QL IA, respiratory specimen 2024 025 [facility], [address] [place] [address], [id number] 5 17:24:04 rapid flu (A+B) 2024 025 [facility], [address] [place] [address], [id number] 5 17:23:45 rapid SARS CoV 2 Ag, QL IA, respiratory specimen 2024 025 [facility], [address] [place] [address], [id number] 5 18:37:27 rapid flu (A+B) 2024 025 [facility], [address] [place] [address], [id number] 5 18:37:32 Referral None recorded. Procedures None recorded. Surgeries None recorded. Imaging None recorded. Medication Orders Solu-Medrol (PF) 125 mg/2 mL solution for injection 2024 025 [email or web address] 7 [facility], [address] [place] [address], [place], [address], 5 16:23:17 prednisolon e 15 mg/5 mL oral solution 2024 025 [facility] [address], [address] [place] [address], [id number], 5 16:26:11 Augmentin 125 mg-31.25 mg/5 mL oral suspension 2024 025 [facility] [address], [address] [place] [address], [address], 18:21:19 sodium chloride 0.9 % for nebulizatio n 2024 025 [facility] [address], [address] [place] [address], [address], 18:21:20 Patient TargetsNo targets recorded. Patient InstructionsNo instructions recorded. Reason for Referral None Reported. Results Created Date Observation Date Name Description Value Unit Range Abnormal Flag Note LastModifiedBy Organization Detail LastModifiedTime 12/06/1912/06/2024 rapid flu (A+B) Flu negati ve Not Available Main - [facility] ed [address] [place] [address], [id number] 12/06/2024 18:24:30 12/06/19 25 12/06/2024 rapid SARS CoV 2 Ag, QL IA, respi rator y speci men rapid SARS CoV 2 Ag, QL IA, respiratory specimen negati ve Not Available Main - [facility] ed [address] [place] [address], [id number] 12/06/2024 18:24:18 06/09/20 25 06/09/2025 rapid SARS CoV 2 Ag, QL IA, respi rator y speci men rapid SARS CoV 2 Ag, QL IA, respiratory specimen negati ve Not Available Main-[facility] [address], [phone] 06/09/2025 16:22:29 06/09/20 25 06/09/2025 rapid flu (A+B) Flu negati ve Not Available [facility] [address], [phone] 06/09/2025 16:22:44 Result Notes None recorded. Medical Equipment None Reported. Allergies Allergen ID Allergen Name Allergen Category Reaction Reaction Severity Criticality Documentation Date Start Date Code Code System Note Provider Name and Address Organization Details Recorded Time 21270 strawberr y allergeni c extract food Not available Not available Not available 07/08/2025 63040 4 RxNorm Not Available [facility] - [employer] 5 13:02:47 7073 latex environme nt,medica tion Not available Not available Not available 09/18/2024 31538 91 RxNorm Not Available [employer] - production [...] Address Organization Details Last Updated DateTime 5 95176.2 8 g 172.72 cm 18 /min 99.2 [degF] 90 /min 99 % 99 % 129/91 mm[Hg] Not Available [employer] 5 17:57:53 Date Recorded Body height Oxygen saturation Oxygen saturation in Arterial blood by Pulse oximetry Respiratory rate Body temperature Heart rate Body weight Systolic And Diastolic Provider Name and Address Organization Details Last Updated DateTime 5 172.72 cm 94 % 94 % 18 /min 96 [degF] 65 /min 25713.3 6 g 121/85 mm[Hg] Not Available [employer] 5 16:08:36 Date Recorded Body temperature Respiratory rate Oxygen saturation Oxygen saturation in Arterial blood by Pulse oximetry Heart rate Systolic And Diastolic Provider Name and Address Organization Details Last Updated DateTime 3 97.9 [degF] 16 /min 97 % 97 % 84 /min 132/76 mm[Hg] Not Available [employer] [employer] production 3 21:35:01 Date Recorded Oxygen saturation Oxygen saturation in Arterial blood by Pulse oximetry Inhaled oxygen flow rate Body temperature Heart rate Respiratory rate Systolic And Diastolic Provider Name and Address Organization Details Last Updated DateTime 5 96 % 96 % 2 L/min 98.6 [degF] 104 /min 18 /min 142/90 mm[Hg] Not Available [employer] 5 14:36:59 Date Recorded Oxygen saturation Oxygen saturation in Arterial blood by Pulse oximetry Body height Respiratory rate Body temperature Body weight Heart rate Systolic And Diastolic Provider Name and Address Organization Details Last Updated DateTime 5 94 % 94 % 167.64 cm 14 /min 98 [degF] 196558. 2 g 89 /min 127/98 mm[Hg] Not Available [employer] 5 16:50:44 Social History None recorded. Functional Status None recorded. Mental Status None recorded. Family History Nothing Reported. Medical History No medical history recorded. Past Encounters Encounter ID Performer Location Encounter Start Date Encounter Closed Date Diagnosis/Indication Diagnosis SNOMED-CT Code Diagnosis ICD10 Code Diagnosis IMO Codes Diagnosis Note [id number] Destin Martinez MD Main - [facility] [address] [place] [phone] 05/17/2023 13:54:34 05/18/2023 08:45:23 Wheeze - rhonchi 12147567 R09.89 Cupola Hoist Operator reports sonorous lung sounds which a difficult to interpret. Vital signs are reviewed and unremarkab le. Flu and COVID negative. Possible aspiration event? Family follows patiet closely, does not think that he needs hospital evaluation for now. Will closely observe at home with a low threshold to seek further medical care. Recommende d PCP follow-up within the week. [id number] Felicity Juarez MD Main - [facility] [address] [place] [phone] 07/03/2023 21:34:59 07/05/2023 15:35:52 Cough 28818961 R05.9 32 yo M developed isolated coughing fit today (expectora quita clear sputum) from which he has recovered and is back to baseline. has no w/r/r, no residual dyspnea or MORA. Exam is unremarkab le. No interventi on is indicated. reviewed warning signs/sx, pt and manager image agree with plan. [id number] INOCENCIO ROBLES MD Main - [facility] [address] [place] [phone] 12/06/2024 17:54:48 12/07/2024 00:43:07 Aspiration pneumonia 276836827 J69.0 Evaluation in the field was performed by my manager image colleague, as noted above, I provided real-time [...] room air, T: 99.2 F.Exam: AAO,, NAD. Cupola Hoist Operator reports sonorous lung sounds with rhonchi [...] status, vomiting, or any concerning symptoms . [id number] SADE CAPPS MD [facility] [address] [address] 06/09/2025 16:08:32 06/09/2025 21:59:14 Acute bronchitis co-occurrent with wheeze 224071535 J20.9 5201103 flu [id number] Neetu Bauman MD [facility] [address] [phone] 07/08/2025 14:36:55 07/08/2025 21:07:18 Fever 691285475 R50.9 [id number] HEIDI ABARCA MD [facility] [address] [address] 08/14/2025 16:50:39 08/14/2025 19:21:41 Fever 307816428 R50.9 [id number] Health Concerns Section Related Observation LastModified by Organization Detai ls LastModified Time None Recorded Concern Status LastModified by Organization Details LastModified Time None Recorded Advance Directives Directive None Recorded Payers Insurance Date Sequence Insurance Name Policy Number Policy Bravo Covered Member ID Bravo Member ID Guarantor Name 08/14/2025 1 [facility] - DOS ON OR AFTER 2023 - DUAL ELIGIBLE - [facility] OPTIONS AND ONE CARE (MEDICARE REPLACEMENT/ADV ANTAGE - HMO) Kike Matson [id number] Kike Matson Notes Date Note Type Note Provider Name and Address Organization Details Recorded Time 07/03/2023 text/html CRC Nursing Assessment: Patient Reports: Cough Chief Complaints: Cough PMH: Para or Quadraplegia, COPD/Asthma Allergies: Latex Comments: Mom calling on behalf of member with request for [facility] visit for eval cough since this am. Deny fever/chills Verify name/- ...................... ...................... ...................... ...................... ...................... ...................... ......... Cupola Hoist Operator Note From Faisal Shah: Dispatched to [...] equal bilaterally, Pt in no obvious distress. [facility] consulted. Red flags discussed. ALL times are approx. ...................... ...................... ...................... ...................... ...................... ...................... ......... Disposition: Dixie Felicity Juarez MD [address] [facility],[address], [place], [address], [employer] Anette Morphy 07/03/2023 23:04:38 12/06/2024 text/html ROS as noted in the HPI CRC Nurse Triage Notes (Zina Sarabia - RN): Reason For Request: PT is experiencing cold symptoms, fever present Chief Complaints: Cough, Fever/chills PMH: Para or Quadriplegia, COPD/Asthma PMH Reviewed at 12/06/2024 Allergies Reviewed at 12/06/2024:32 Comments: Mother called to request visit for fever and cough. Elma hot to touch, temp was not taken. [...] ...................... ...................... ...................... ...................... ...................... ...................... ......... Cupola Hoist Operator Note From Quentin Beckett: [facility] visit for male pt. [...] Some rhonchi noted on auscultation. Consulted with [facility] [place]. Robles. Verified pt's allergies and Rx sent for augmentin and normal saline bullets for nebulizer. Reviewed dosage recommendations for albuterol nebs. Reviewed red flags for ED. Pt education provided. ...................... ...................... ...................... ...................... ...................... ...................... ......... [facility] Consulted: Inocencio Robles ...................... ...................... ...................... ...................... ...................... ...................... ......... Disposition: Dxiie ROBLES MD [address] [place] [address],[address], [place], [address], [employer] 12/06/2024 22:11:26 06/09/2025 text/html ROS as noted in the [facility] CRC Nurse Triage Notes (Teri Barger): Reason [...] signs of when to seek emergency care. Cupola Hoist Operator Organization Information for Genesis [employer] Business Legal Name: [employer]. Address: [address] [place] [address], Program Director: David Douglass MD CLIA No.: [id number] Cupola Hoist Operator POC Test Results from [employer] Rapid COVID antigen (15:50:26) COVID: - Attachments uploaded as part of this test result can be found under Documents section. Rapid influenza antigen (15:50:27) Flu: - ...................... ...................... ...................... ...................... ...................... ...................... ......... Cupola Hoist Operator Note From Genesis Warren: SC6 responds to [...] a light yellow when sputum is produced. [facility] discusses a r/o of pneumonia requires an xray and family is aware. He has been getting duonebs TID as well as albuterol, which seem to be helping but not entirely. He was started on Mucinex yesterday and family denies pt ever being placed on steroids for his asthma. [facility] obtains vital signs and pt is assessed. [...] to family. He falls asleep during assessment. [facility] swabs pt for COVID/flu and both tests are negative. [facility] contacts [facility] and discusses the above. [facility] is concerned for aspiration, however, pt has not produced any fevers. [facility] orders 125mg SoluMedrol IM for pt and a taper of prednisone. [facility] administers 125mg SoluMedrol using aseptic technique in the R deltoid. [facility] discusses warning signs, including a high fever, that indicate pt needs further care in the ED. Family gives their verbal understanding. [facility] is clear. Report completed by JONAH Warren [id number]. [facility] Lab Orders: rapid SARS CoV 2 Ag, QL IA, respiratory specimen: Performed rapid flu (A+B): Performed [facility] Medication Orders: Solu-Medrol (PF) 125 mg/2 mL solution for injection: Administered ...................... ...................... ...................... ...................... ...................... ...................... ......... [facility] Consulted: Sade Capps ...................... ...................... ...................... ...................... ...................... ...................... ......... Disposition: Fulfilled SADE CAPPS MD [address] [facility],[address], [place], [address], [employer] 06/09/2025 17:14:08 07/08/2025 text/html CRC Nurse Triage [...] to seek emergency care -Yudy Rosario RN Cupola Hoist Operator Organization Information for Faisal Shah Business Legal Name: [employer]. Address: [address] [place] [address], Program Director: David Douglass MD CLIA No.: [id number] Cupola Hoist Operator POC Test Results from Faisal Shah Rapid COVID antigen (14:28:43) COVID: - Rapid influenza antigen (14:28:45) Flu: - ...................... ...................... ...................... ...................... ...................... ...................... ......... Cupola Hoist Operator Note From Faisal Shah: Dispatched to [...] Afebrile. Pt was assessed. Rapid test conducted. [facility] consulted. Red flags discussed. ALL times are approx. [facility] Lab Orders: rapid flu (A+B): Performed rapid SARS CoV 2 Ag, QL IA, respiratory specimen: Performed ...................... ...................... ...................... ...................... ...................... ...................... ......... [facility] Consulted: Neetu Bauman ...................... ...................... ...................... ...................... ...................... ...................... ......... Disposition: Fulfilled Neetu Bauman MD [address] [place] [address],[address], [place], [address], [employer] 07/08/2025 16:45:15 08/14/2025 text/html ROS as noted [...] signs of when to seek emergency care. Cupola Hoist Operator Organization Information for Souleymane Olvera Keukey Legal Name: [employer] Address: [address] [place] [address], [place] Ramirez [address], Program Director: Christopher Cardozo MD CLIA No.: [id number] Cupola Hoist Operator POC Test Results from [employer]le[employer]a Rapid [...] ...................... ...................... ...................... ...................... ...................... ...................... ......... Cupola Hoist Operator Note From Souleymane Olvera: Patient in wheelchair. [...] unremarkable. Test administered as ordered without complication. [facility] orders patient to ED. 911 system activated, report to EMS on scene. [place] [facility]. [facility] Lab Orders: rapid SARS CoV 2 Ag, QL IA, respiratory specimen: Performed rapid flu (A+B): Performed urinalysis, dipstick: Performed ...................... ...................... ...................... ...................... ...................... ...................... ......... [facility] Consulted: Heidi Abarca ...................... ...................... ...................... ...................... ...................... ...................... ......... Disposition: Fulfilled HEIDI ABARCA MD [address] [facility],[address], [place], [address], PAZ GARCIA 08/14/2025 18:53:59
--- OUTSIDE RECORDS SUMMARY | 2025-09-17 19:28 | XMS_ITS | Encounter Summary ---
Author Organization [facility] Address [address] [facility] [address] [place] [address] Phone Care Team Providers Care Design Tech Name Role Phone Martir Espino Primary Care Provider + Luis Farah MD, DDS Unavailable [phone] Lissy Harris DMD Unavailable Reason for Visit * Reason Comments Medication Refill Encounter Details Date Type Department Care Team (Late st Contact Info) Description 04/29/2024 Refill [facility] Department of Neurology [address] [place] [address], [address], [address] [place] [address] Chiki Ferro MD [address] [place] [address] [id number] [place] [address] [email or web address] Medication Refill Social History Tobacco Use Types [...] Ferro MD Last refill: 04/03/2024 Rx #: [id number] To be filled at: [facility] [address] [place] [address] documented in this encounter Plan of Treatment Upcoming Encounters Date Type Department Care Team (Late st Contact Info) Description 12/04/2025 2:00 PM EST Telemedicine [facility] [address] [place] [address] 835 [place] [address] Chiki Ferro MD [address] [place] [address] [id number] [place] [address] [email or web address] maria del rosario 01/21/2026 12:00 PM EST Telemedicine [facility] [place] [address] [place] [address] Ana Vallejo MD [address] [place] [address] [email or web address] documented as of this encounter Visit Diagnoses Diagnosis Traumatic brain injury with loss of consciousness, sequela documented in this encounter Care Teams Design Tech Relationship Specialty Start Date End Date Martir Espino PA [address] [place] [address] PCP - General 12/29/18 Luis Farah MD, DDS [address] [place] [address] [email or web address] public health teacher 11/06/21 Lissy Harris DMD [address] [place] [phone] [email or web address] Dentist Dental In Processing Instructor 06/08/22 documented as of this encounter Additional Source Comments The information contained in this document represents components of the legal health record. It is not the complete legal health record.[facility]
--- OUTSIDE RECORDS SUMMARY | 2025-09-17 19:28 | XMS_ITS | Encounter Summary ---
Author Organization [facility] Address [address] [facility] [address] [place] [address] Phone Care Team Providers Care Portable Power Tool Repairer Name Role Phone Martir Espino Primary Care Provider + Luis Farah MD, DDS Unavailable [phone] Lissy Harris DMD Unavailable Reason for Visit * Reason Comments Medication Refill Encounter Details Date Type Department Care Team (Late st Contact Info) Description 09/30/2023 Refill [facility] Department of Neurology [address] [place] [address], 8th Floor, [address] [place] [address] Chiki Ferro MD [address] [place] [address] [id number] [place] [address] [email or web address] Medication Refill Social History Tobacco Use Types [...] Description 12/04/2025 2:00 PM EST Telemedicine [facility] Neuro[facility]covery Clinic [address] [facility] [address] [place] [address] Chiki Ferro MD [address] [facility] [phone] [place] [address] [email or web address] 01/21/2026 12:00 PM EST Telemedicine [facility] [address] [place] [address] Ana Vallejo MD [facility] [address] [email or web address] documented as of this encounter Visit Diagnoses Not on filedocumented in this encounter Care Teams Portable Power Tool Repairer Relationship Specialty Start Date End Date Martir Espino PA [facility] [place] [address] PCP - General 12/29/18 Luis Farah MD, DDS [address] [facility] WRN-[id number] [place] [address] [email or web address] 11/06/21 Lissy Harris DMD [address] [phone] [email or web address] Dentist Dental Forklift Technician 06/08/22 documented as of this encounter Additional Source Comments The information contained in this document represents components of the legal health record. It is not the complete legal health record.[facility]
--- OUTSIDE RECORDS SUMMARY | 2025-09-17 19:29 | XMS_ITS | Clinical Summary ---
Author Organization [facility] Address [address] [place] [phone] Care Team Providers Care Senior Hr Generalist Name Role Phone Martir Espino Primary Care Provider Surgical History Surgery Date Site/Laterality Comments OTHER SURGICAL HISTORY PROCEDURE: [place] UNLISTED MUSCULOSKELETAL PROCEDURE HEAD OTHER SURGICAL HISTORY PROCEDURE: [place] GASTRIC INTUBATION DX & ASPIRATJ MULTIPLE SPEC Medical History Medical History Date Comments TBI (traumatic brain injury) (CMS/HCC V24, CMS/HCC V28) DX:TBI (traumatic brain inju ry) ([facility]) Social History Tobacco Use Types Packs/Day Years [...] age to complete this topic Care Teams Senior Hr Generalist Relationship Specialty Start Date End Date Martir Espino PA PCP - General Internal Medicine 10/16/19
--- OUTSIDE RECORDS SUMMARY | 2025-09-17 19:29 | XMS_ITS | Data Portability ---
Author Organization [place] [facility] Address [address] [place] [phone] Care Team Providers Care Whipped Topping Supervisor Name Role Phone ASHISH KAISER Primary Care Provider [phone] ASHISH KAISER Referring Provider Assessment Encounter Date [...] Recorded Time Impacted cerumen of bilateral ears [id number] 08 Active 2024 Brenda cutler [facility] 11:15:56 Problem Notes None recorded. Procedures Surgical History Date Name Laterality Status Provider Name and Address Organization Details Recorded Time Cerumen removal without microscope bilat completed Brenda Akhtar [place] [facility] 02/07/2025 11:14:36 Imaging Results None recorded. Procedure Notes None recorded. Medical Equipment None Reported. Allergies Allergen ID Allergen Name Allergen Category Reaction Reaction Severity Criticality Documentation Date Start Date Code Code System Note Provider Name and Address Organization Details Recorded Time 898090 strawberr y allergeni c extract food Not available Not available Not available 02/07/2025 67837 4 RxNorm [place] cutler [place] [facility] 5 10:57:57 183324 Latex (substanc e) environme nt,medica tion Not available Not available Not available 02/07/2025 66258 8007 SNOMED Ana cutler [place] [facility] 5 10:58:07 864142 adhesive tape environme nt,medica tion Not available Not available Not available 02/07/2025 Ana cutler [place] [facility] 5 10:58:19 Medications Name Sig Start [...] ICD10 Code Diagnosis IMO Codes Diagnosis Note [id number] BRENDA AKHTAR PA-C [facility] [address] [phone] 02/07/2025 10:43:48 02/07/2025 11:02:49 Impacted cerumen of bilateral ears [id number] 114426 H61.23 Health Concerns Section Related Observation LastModified by Organization Detai ls LastModified Time None Recorded Concern Status LastModified by Organization Details LastModified Time None Recorded Advance Directives Directive None Recorded Payers Insurance Date Sequence Insurance Name Policy Number Policy Bravo Covered Member ID Bravo Member ID Guarantor Name 02/07/2025 1 [facility] - DOS ON OR AFTER 2023 - ONE CARE (MEDICARE REPLACEMENT/ADV ANTAGE - HMO) Kike Matson [id number] Kike Matson Notes Date Note Type Note Provider Name and Address Organization Details Recorded Time 02/07/2025 text/html ROS as noted in the HPI 34 year old male quadriplegic presents to the office for cerumen removal. He is accompanied by aides. CARL FABIAN MD [address] [place] [address], [phone], [facility] - [facility] 02/08/2025 08:47:04
--- OUTSIDE RECORDS SUMMARY | 2025-09-17 19:29 | XMS_ITS | Encounter Summary ---
Author Organization [facility] Address [address] [address] Phone Care Team Providers Care Oracle Fusion Developer Name Role Phone Martir Espino Primary Care Provider + Luis Farah MD, DDS Unavailable [phone] Lissy Harris DMD Unavailable Encounter Details Date Type Department Care Team (Late Contact Info) Description 10/08/2022 Procedure Pass [facility] [address] [place] [phone] Social History Tobacco Use Types Packs/Day Years [...] Upcoming Encounters Date Type Department Care Team ([facility] Contact Info) Description 12/04/2025 2:00 PM EST Telemedicine [facility] [address] [place] [address] [address] [place] [address] Chiki Ferro MD [address] [facility] [id number] [place] [address] [email or web address] 01/21/2026 12:00 PM EST Telemedicine [facility] [address] [place] [address] Ana Vallejo MD [address] [place] [address] 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 Dentist Dental Optimization Engineer 06/08/22 documented as of this encounter Additional Source Comments The information contained in this document represents components of the legal health record. It is not the complete legal health record.[facility]
== END 2025-09-17 15:34 | disposition home or self-care (01) ==
LOC: HO.HPS 15:03
PROVIDERS: PCP Physician Assistant; Visit Provider Internal Medicine Pulmonary Disease
DX: G47.33 Obstructive sleep apnea (adult) (pediatric) (principal); T17.908A Unspecified foreign body in respiratory tract, part unspecified causing other injury, initial encounter
CPT/HCPCS: 99204

== ENCOUNTER → 2025-09-17 15:02 | Outpatient (BNVA) | payer OTHER, SELFPAY | PROVIDERS: PCP Physician Assistant; Visit Provider Internal Medicine Pulmonary Disease | DX: G47.33 Obstructive sleep apnea (adult) (pediatric) (principal); Z87.891 Personal history of nicotine dependence; T17.908D Unspecified foreign body in respiratory tract, part unspecified causing other injury, subsequent encounter | CPT/HCPCS: 99202 ==

== ENCOUNTER 2025-09-25 07:08 | Day surgery (SDC) | payer OTHER, SELFPAY ==
--- OUTSIDE RECORDS SUMMARY | 2011-10-09 01:00 | XMS_ITS | Encounter Summary ---
Author Organization [facility] Address [address] [address] Phone Care Team Providers Care Junior Assistant Manager Name Role Phone Unavailable Primary Care Provider Unavailabl e Reason for Visit * MRI/CAT Scan - Closed Specialty Diagnoses / Procedures Referred By Contac t Referred To Contact Procedures CT Spine (Bone) Focus Outside (No Interpretation) Chiki Ferro MD [address] [place] [phone] [place] [address] Phone: tel: fax: mailto:[email or web address] Referral ID Status Reason Start Date Expiration Date Visits Re quested Visits Authorized [id number] Closed 01/11/2019 01/11/2020 1 1 Encounter Details Date Type Department Care Team (Late st Contact Info) Description 10/09/2011 Hospital Encounter [facility] 55 [place] [address] Chiki Ferro MD [address] [place] [address]-175-300 [place] [address] [email or web address] du Social History Tobacco Use Types [...] Info) Description 12/04/2025 2:00 PM EST Telemedicine [facility] [address] [place] [address] 835 [place] [address] Chiki Ferro MD [address] [place] [address] [phone] [place] [address] MARY@[email or web address]. maria del rosario 01/21/2026 12:00 PM EST Telemedicine [facility] [address] [address] Ana Vallejo MD [address] [place] [address] [email or web address] documented as of this encounter Procedures Procedure Name Priority Date/Time Associated Diagnosis Comments CT SPINE (BONE) OUTSIDE (NO INTERPRETATION) Routine 10/09/2011 12:00 AM EST documented in this encounter Results * CT Spine (Bone) Focus Outside (No Interpretation) (10/09/2011 12:00 AM EST) Narrative [facility] IMG INTERFACES - 01/11/2019 3:11 PM EST This study is for PACS storage only and not for interpretation. us Chiki Ferro MD IMG OUTSIDE IMAGING W/OUT INTER PRETATION Final Result [facility] IMG INTERFACES documented in this encounter Visit Diagnoses Not on filedocumented in this encounter Additional Source Comments The information contained in this document represents components of the legal health record. It is not the complete legal health record.[facility]
--- OUTSIDE RECORDS SUMMARY | 2011-10-09 01:15 | XMS_ITS | Encounter Summary ---
Author Organization [facility] Address 399 [facility] [address] [place] [address] Phone Care Team Providers Care Histology Technician Name Role Phone Unavailable Primary Care Provider Unavailabl e Reason for Visit * MRI/CAT Scan - Closed Specialty Diagnoses / Procedures Referred By Contac t Referred To Contact Procedures CT Neck Outside (No Interpretation) Chiki Ferro MD [address] [place] [phone] [place] [address] Phone: tel: fax: mailto:[email or web address] Referral ID Status Reason Start Date Expiration Date Visits Re quested Visits Authorized [id number] Closed 01/11/2019 01/11/2020 1 1 Encounter Details Date Type Department Care Team (Late st Contact Info) Description 10/09/2011 12:15 AM EST Hospital Encounter [facility] [address] [place] [address] Chiki Ferro MD [address] [place] [phone] [place] [address] [email or web address] Social History Tobacco Use Types Packs/Day Years [...] Info) Description 12/04/2025 2:00 PM EST Telemedicine [facility] [address] [place] [address] 835 [place] [address] Chiki Ferro MD [address] [place] [address] [phone] [place] [address] [email or web address] maria del rosario 01/21/2026 12:00 PM EST Telemedicine [facility] [address] [address] Ana Vallejo MD [address] [place] [address] [email or web address] documented as of this encounter Procedures Procedure Name Priority Date/Time Associated Diagnosis Comments CT NECK OUTSIDE (NO INTERPRETATION) Routine 10/09/2011 12:15 AM EST documented in this encounter Results * CT Neck Outside (No Interpretation) (10/09/2011 12:15 AM EST) Narrative [facility] IMG INTERFACES - 01/11/2019 3:12 PM EST This study is for PACS storage only and not for interpretation. us Chiki Ferro MD IMG OUTSIDE IMAGING W/OUT INTER PRETATION Final Result [facility] IMG INTERFACES documented in this encounter Visit Diagnoses Not on filedocumented in this encounter Additional Source Comments The information contained in this document represents components of the legal health record. It is not the complete legal health record.[facility]
--- OUTSIDE RECORDS SUMMARY | 2011-10-12 01:00 | XMS_ITS | Encounter Summary ---
Author Organization [facility] Address [address] [address] Phone Care Team Providers Care Information Analyst Name Role Phone Unavailable Primary Care Provider Unavailabl e Reason for Visit * MRI/CAT Scan - Closed Specialty Diagnoses / Procedures Referred By Contac t Referred To Contact Procedures CT Spine (Bone) Focus Outside (No Interpretation) Chiki Ferro MD [address] [place] [address]-175-300 [place] [address] Phone: tel: fax: mailto:[email or web address] Referral ID Status Reason Start Date Expiration Date Visits Re quested Visits Authorized [id number] Closed 01/11/2019 01/11/2020 1 1 Encounter Details Date Type Department Care Team (Late st Contact Info) Description 10/12/2011 Hospital Encounter [facility] 55 [place] [address] Chiki Ferro MD [address] [place] [address]-175-300 [place] [address] [email or web address]. du Social History Tobacco Use Types Packs/Day [...] Info) Description 12/04/2025 2:00 PM EST Telemedicine [facility] [address] [place] [address] 835 [place] [address] Chiki Ferro MD [address] [place] [address] [phone] [place] [address] [email or web address]. maria del rosario 01/21/2026 12:00 PM EST Telemedicine [place] [facility] [address] [address] Ana Vallejo MD [address] [place] [address] [email or web address] u documented as of this encounter Procedures Procedure Name Priority Date/Time Associated Diagnosis Comments CT SPINE (BONE) OUTSIDE (NO INTERPRETATION) Routine 10/12/2011 12:00 AM EST documented in this encounter Results * CT Spine (Bone) Focus Outside (No Interpretation) (10/12/2011 12:00 AM EST) Narrative [facility]G INTERFACES - 01/11/2019 3:12 PM EST This study is for PACS storage only and not for interpretation. us Chiki Ferro MD IMG OUTSIDE IMAGING W/OUT INTER PRETATION Final Result [facility] INTERFACES documented in this encounter Visit Diagnoses Not on filedocumented in this encounter Additional Source Comments The information contained in this document represents components of the legal health record. It is not the complete legal health record.[facility]
--- OUTSIDE RECORDS SUMMARY | 2025-09-16 12:32 | XMS_ITS | Encounter Summary ---
Author Organization [facility] Address [address] [employer] [facility] [address] [place] [address] Phone Care Team Providers Care Insurance Instructor Name Role Phone Martir Espino Primary Care Provider + Luis Farah MD, DDS Unavailable +1 [phone] Lissy Harris DMD Unavailable Encounter Details Date Type Department Care Team (Late st Contact Info) Description 08/16/2025 Telephone [facility] Neurology [address] [facility], [address] [place] [address] Salima Wang MA [email or web address] Social History Tobacco Use Types Packs/Day Years [...] as of this encounter Progress Notes * Kaye Ortiz RN - 09/16/2025 10:25 AM EDT Received voicemail from patient's mother stating that on lowered dose (100mg BID) or amantadine patient is sleepier, much less interactive. Returned call, spoke with patient's mother who confirmed that while less interactive and more sleepy, also experiencing less storming events (if any). Advised I will reach out toDr. Ferro for next steps. Niki requested we contact patient's sister Riky for follow-up. Kaey Ortiz RN * Kaye Ortiz RN - 08/21/2025 2:03 PM EDT Called, LVM with Niki letting her know of recommendation to decrease Kike's amantadine from 200mg BID to 100mg BID. Requested that she/her daughter (Kike's care specialist) keep a daily log of overall alertness and frequency of storming. We would like to know if there is a change after amantadine decrease as well. Kaye Ortiz RN * Kaye Ortiz RN - 08/16/2025 3:35 PM EDT Returned call to patient's mother who explained that Kike is having storming episodes at least once per month. When he has these episodes they last days to weeks (storming every day for a few daysor every day for a week). Confirmed patient is currently taking 200mg amantadine BID with good wakefulness. Not scheduled forf/u with Dr. Ferro until Nov 2025. Advised I will check in with Dr. Ferro to see if he would like to make any medication changes at this time, will also request patient is on cancellation list if not already. Kaye Ortiz RN * Salima Wang MA - 08/16/2025 2:30 PM EDT Patients mom left a VM stating patient was recently in the ED for high fevers and is requesting a call back to to discuss. documented in this encounter Plan of Treatment Upcoming Encounters Date Type Department Care Team (Late st Contact Info) Description 12/04/2025 2:00 PM EST Telemedicine [facility] Neurorecovery Clinic 55 [facility] 835 [place] [address] Chiki Ferro MD [address] [place] [address] [id number] [place] [address] [email or web address] 01/21/2026 12:00 PM EST Telemedicine [facility] [address] [address] Ana Vallejo MD [address] [place] [address] [email or web address] documented as of this encounter Visit Diagnoses Not on filedocumented in this encounter Care Teams Insurance Instructor Relationship Specialty Start Date End Date Martir Espino PA [facility] [place] [address] PCP - General 12/29/18 Luis Farah MD, DDS [address] [place] [address] WRN-1201 [place] [address] [email or web address] prints and drawings curator 11/06/21 Lissy Harris DMD [address] [place] [phone] [email or web address] Dentist Dental Podiatric Medicine Professor 06/08/22 documented as of this encounter Additional Source Comments The information contained in this document represents components of the legal health record. It is not the complete legal health record.[facility]
--- OUTSIDE RECORDS SUMMARY | 2025-09-16 12:32 | XMS_ITS | Encounter Summary ---
Author Organization [facility] Address [address] [address] Phone Care Team Providers Care Piercer Name Role Phone Martir Espino Primary Care Provider + Luis Farah MD, DDS Unavailable +1 [phone] Lissy Harris DMD Unavailable Encounter Details Date Type Department Care Team (Late st Contact Info) Description 11/24/2021 Procedure Pass [facility] MRI, Lunder 6 55 [facility], 6th [place] [address] Social History Tobacco Use Types Packs/Day Years [...] Description 12/04/2025 2:00 PM EST Telemedicine [facility] Neurorecovery Clinic [address] [place] [address] Chiki Ferro MD 55 [facility] [id number] [place] [address] [email or web address] 01/21/2026 12:00 PM EST Telemedicine [facility] [place] [address] [place] [address] Ana Vallejo MD [address] [place] [address] [email or web address] documented as of this encounter Visit Diagnoses Not on filedocumented in this encounter Care Teams Piercer Relationship Specialty Start Date End Date Martir Espino PA [address] [place] [address] PCP - General 12/29/18 Luis Farah MD, DDS [address] [facility] WRN-1201 [place] [address] [email or web address] associate 11/06/21 Lissy Harris, JAROCHO [address] [facility] [address] [place] [address] [email or web address] Dentist Dental Dry Wall Installer 06/08/22 documented as of this encounter Additional Source Comments The information contained in this document represents components of the legal health record. It is not the complete legal health record.[facility]
--- OUTSIDE RECORDS SUMMARY | 2025-09-16 12:33 | XMS_ITS | Clinical Summary ---
Author Organization [facility] Address [address] [address] Phone Care Team Providers Care Clinical Specialist Medical Device Name Role Phone Martir Espino Primary Care Provider + Luis Farah MD, DDS Unavailable +1 [phone] Lissy Harris DMD Unavailable Allergies Active Allergy Reactions Criticality Noted Date Comments Latex Rash Low 09/19/2016 Mertzon 11/24/2021 Adhesive 11/24/2021 Medications AMANTADINE HCL, BULK, MISC by Miscellaneous route. Active albuterol 2.5 mg /3 mL (0.083 %) nebulizer solution USE 1 VIAL IN NEBULIZER 4 TIMES DAILY NEEDED FOR 90 DAYS 1 08/13/20 19 Active XARELTO 20 mg Tab TAKE 1 TABLET BY MOUTH ONCE DAILY WITH FOOD 2 08/13/20 19 Active omega 0-ydc-oav-fis h oil 1,000 mg (120 mg-180 mg) [...] Type Department Care Team Description 08/16/2025 Telephone [facility] Neurology [address] [facility], [address] [place] [address] Salima Wangen OR 08/15/2025 Refill [facility] Neurorecovery Clinic [address] [place] [address] Chiki Ferro MD Medication Refill 07/31/2025 Refill [facility] Department of Neurology [address] [facility], 8th Floor, [address] [place] [address] Chiki Ferro MD Medication Refill 07/17/2025 11:30 AM EDT Telemedicine [facility] [address] [address] Ana Vallejo MD Traumatic brain injury, with unknown loss of consciousness status, subsequent encounter (Primary Dx) 07/09/2025 Refill [facility] Neurorecovery Clinic [address] [place], [place] [address] [place] [address] Chiki Ferro MD Medication Refill 06/28/2025 Telephone [facility] Department of Neurology 55 [facility], 8th Floor, [address] [place] [address] Chiki Ferro MD from Last 3 Months [...] Description 12/04/2025 2:00 PM EST Telemedicine [facility] Neuro[facility]covery Clinic 55 [facility] 835 [place] [address] Chiki Ferro MD 55 [facility] [id number] [place] [address] [email or web address] del [email or web address] 01/21/2026 12:00 PM EST Telemedicine [facility] [place] [address] [place] [address] Ana Vallejo MD [address] [place] [address] [email or web address] Health Maintenance Due Date Last Done [...] Procedure Name Priority Date/Time Associated Diagnosis Comments WI INTRAORAL - COMPLETE SERIES OF RADIOGRAPHIC IMAGES Routine 06/07/2022 9:00 AM EDT Visit for dental examination WI COMPREHENSIVE ORAL EVALUATION - NEW OR ESTABLISHED PATIENT Routine 06/07/2022 9:00 AM EDT Visit for dental examination from Last 3 Months or Most Recently Relevant to Health Maintenance Insurance [facility] MEDIC[facility] REPLACEMENT [facility] MEDIC[facility] REPLACEMENT [facility] MEDIC[facility] REPLACEMENT [facility] MEDICARE REPLACEMENT [facility] [place] [id number] [facility] [place] [id number] [facility] MEDICARE REPLACEMENT [facility] [place] [id number] [facility] [place] [id number] [facility] 100/50/[address] [facility] 50/50 Advance Directives For more information, please contact: [phone] (9AM - 5PM [facility], Tuesday-Tuesday) * Full Code (Latest Code Status on File) Date Activated Date Inactivated Comments 10/08/2022 8:00 AM Question Answer Comments Code Status Confirmed With: Patient * Full Code Date Activated Date Inactivated Comments 11/24/2021 12:45 PM 10/08/2022 8:00 AM Question Answer Comments Code Status Confirmed With: Family Care Teams Clinical Specialist Medical Device Relationship Specialty Start Date End Date Martir Espino PA [address] [place] [address] PCP - General 12/29/18 Luis Farah MD, DDS [address] [place] [address] [email or web address] endoscopic technician 11/06/21 Lissy Harris DMD [address] [address] [email or web address] Dentist Dental Director Of Reservations 06/08/22 Additional Source Comments The information contained in this document represents components of the legal health record. It is not the complete legal health record.[facility]
--- OUTSIDE RECORDS SUMMARY | 2025-09-16 12:33 | XMS_ITS | Encounter Summary ---
Author Organization [facility] Address 399 [facility] [address] [place] [address] Phone Care Team Providers Care Stamper Blocker Name Role Phone Martir Espino Primary Care Provider + Luis Farah MD, DDS Unavailable [phone] [phone] Lissy Harris DMD Unavailable Encounter Details Date Type Department Care Team (Late st Contact Info) Description 01/11/[address] [facility] General Imaging 55 [place] [address] Social History Tobacco Use Types Packs/Day Years [...] Description 12/04/2025 2:00 PM EST Telemedicine [facility] Neurorecovery Clinic 55 [facility] 835 [place] [address] Chiki Ferro MD 55 [facility] [phone] [place] [address] [email or web address] maria del rosario 01/21/2026 12:00 PM EST Telemedicine [facility] [place] [address] [place] [address] Ana Vallejo MD [address] [place] [address] [email or web address] documented as of this encounter Visit Diagnoses Not on filedocumented in this encounter Care Teams Stamper Blocker Relationship Specialty Start Date End Date Martir Espino PA [address] [place] [address] PCP - General 12/29/18 Luis Farah MD, DDS [address] [place] [address] [email or web address] purification operator helper 11/06/21 Lissy Harris DMD [address] [place] [phone] [email or web address] Dentist Dental Epic Trainer 06/08/22 documented as of this encounter Additional Source Comments The information contained in this document represents components of the legal health record. It is not the complete legal health record.[facility]
--- OUTSIDE RECORDS SUMMARY | 2025-09-16 12:33 | XMS_ITS | Encounter Summary ---
Author Organization [facility] Address 399 [facility] [address] [place] [address] Phone Care Team Providers Care Installer Soft Top Name Role Phone Martir Espino Primary Care Provider + Luis Farah MD, DDS Unavailable [phone] [phone] Lissy Harris DMD Unavailable Reason for Visit * Reason Comments Medication Refill Encounter Details Date Type Department Care Team (Late st Contact Info) Description 09/30/2023 Refill [facility] Department of Neurology [address] [place] [address], 8th Floor, [address] [place] [address] Chiki Ferro MD [address] [place] [address] [phone] [place] [address] [email or web address] Medication Refill Social History Tobacco Use Types [...] [facility] 55 [facility] 835 [place] [address] Chiki Ferro MD 55 [facility] [phone] [place] [address] [email or web address] du 01/21/2026 12:00 PM EST Telemedicine [facility] [place] [address] [place] [address] Ana Vallejo MD [facility] [place] [address] [email or web address] documented as of this encounter Visit Diagnoses Not on filedocumented in this encounter Care Teams Installer Soft Top Relationship Specialty Start Date End Date Martir Espino PA [facility] [place] [address] PCP - General 12/29/18 Luis Farah MD, DDS [address] [facility] WRN-1201 [place] [address] [email or web address] pick up worker 11/06/21 Lissy Harris DMD [address] [phone] [email or web address] Dentist Dental Meter And Service Line Inspector 06/08/22 documented as of this encounter Additional Source Comments The information contained in this document represents components of the legal health record. It is not the complete legal health record.[facility]
--- OUTSIDE RECORDS SUMMARY | 2025-09-16 12:33 | XMS_ITS | Encounter Summary ---
Author Organization [facility] Address [address] [address] Phone Care Team Providers Care Forensic Economist Name Role Phone Martir Espino Primary Care Provider + Luis Farah MD, DDS Unavailable [phone] [phone] Lissy Harris DMD Unavailable Encounter Details Date Type Department Care Team (Late st Contact Info) Description 11/24/2021 Procedure Pass [facility] MRI, Lunder 6 55 [facility], 6th [place] [address] Social History Tobacco Use Types Packs/Day Years [...] Info) Description 12/04/2025 2:00 PM EST Telemedicine [facility] Neuro[facility]covery Clinic [address] [place] [address] Chiki Ferro MD 55 [facility] [phone] [place] [address] [email or web address] 01/21/2026 12:00 PM EST Telemedicine [facility] [place] [address] [place] [address] Ana Vallejo MD [address] [place] [address] [email or web address] documented as of this encounter Visit Diagnoses Not on filedocumented in this encounter Care Teams Forensic Economist Relationship Specialty Start Date End Date Martir Espino PA [address] [place] [address] PCP - General 12/29/18 Luis Farah MD, DDS 55 [facility] WRN-1201 [place] [address] [email or web address] freezer unloader 11/06/21 Lissy Harris, JAROCHO 165 [facility] [address] [place] [address] [email or web address] Dentist Dental Knitting Machine Mechanic 06/08/22 documented as of this encounter Additional Source Comments The information contained in this document represents components of the legal health record. It is not the complete legal health record.[facility]
--- OUTSIDE RECORDS SUMMARY | 2025-09-16 12:33 | XMS_ITS | Encounter Summary ---
Author Organization [facility] Address 399 [facility] [address] [place] [address] Phone Care Team Providers Care Deicer Tester Name Role Phone Martir Espino Primary Care Provider + Luis Farah MD, DDS Unavailable [phone] [phone] Lissy Harris DMD Unavailable Encounter Details Date Type Department Care Team (Late st Contact Info) Description 06/28/2025 Telephone [facility] Department of Neurology 55 [facility], 8th Floor, [address] [place] [address] Chiki Ferro MD [address] [place] [phone] [place] [address] [email or web address] Social History Tobacco Use Types Packs/Day [...] 2:44 PM EDT WHO: Josefa, nurse from [facility] WHAT: stated pt was recently hospitalized for pneumonia at [facility], was discharged to home yesterday Josefa went [...] let Dr. Ferro know. Best callback #: [phone] documented in this encounter Plan of Treatment Upcoming Encounters Date Type Department Care Team (Late st Contact Info) Description 12/04/2025 2:00 PM EST Telemedicine [facility] Neurorecovery Clinic [address] [place] [address] 835 [place] [address] Chiki Ferro MD [address] [place] [address] [phone] [place] [address] [email or web address] maria del rosario 01/21/2026 12:00 PM EST Telemedicine [facility] [place] [address] [place] [address] Ana Vallejo MD [address] [place] [address] [email or web address] documented as of this encounter Visit Diagnoses Not on filedocumented in this encounter Care Teams Deicer Tester Relationship Specialty Start Date End Date Martir Espino PA [address] [place] [address] PCP - General 12/29/18 Luis Farah MD, DDS [address] [place] [address] [email or web address] plastic maker 11/06/21 Lissy Harris DMD [address] [place] [phone] [email or web address].[email or web address] Dentist Dental Catalyst Impregnator 06/08/22 documented as of this encounter Additional Source Comments The information contained in this document represents components of the legal health record. It is not the complete legal health record.[facility]
--- OUTSIDE RECORDS SUMMARY | 2025-09-16 12:34 | XMS_ITS | Clinical Summary ---
Author Organization [facility] Address [id number] [place] [phone] Care Team Providers Care Infectious Waste Technician Name Role Phone Martir Espino Primary Care Provider Surgical History Surgery Date Site/Laterality Comments OTHER SURGICAL HISTORY PROCEDURE: [place] UNLISTED MUSCULOSKELETAL PROCEDURE HEAD OTHER SURGICAL HISTORY PROCEDURE: [place] GASTRIC INTUBATION DX & ASPIRATJ MULTIPLE SPEC Medical History Medical History Date Comments TBI (traumatic brain injury) (CMS/HCC V24, CMS/HCC V28) DX:TBI (traumatic brain inju ry) ([facility]) Social History Tobacco Use Types [...] age to complete this topic Care Teams Infectious Waste Technician Relationship Specialty Start Date End Date Martir Espino PA PCP - General Internal Medicine 10/16/19
--- OUTSIDE RECORDS SUMMARY | 2025-09-16 12:34 | XMS_ITS | Encounter Summary ---
Author Organization [facility] Address [address] [facility] [address] [place] [address] Phone Care Team Providers Care Church Musician Name Role Phone Martir Espino Primary Care Provider + Luis Farah MD, DDS Unavailable [phone] [phone] Lissy Harris DMD Unavailable Reason for Visit * Reason Comments Medication Refill Encounter Details Date Type Department Care Team (Late st Contact Info) Description 04/29/2024 Refill [facility] [place] [address] [place] [address], 8th Floor, [address] [place] [address] Chiki Ferro MD [address] [place] [address] [id number] [place] [address] MARY@[email or web address] Medication Refill Social History Tobacco Use Types [...] Ferro MD Last refill: 04/03/2024 Rx #: [id number] To be filled at: [facility] [address] [place] [address] documented in this encounter Plan of Treatment Upcoming Encounters Date Type Department Care Team (Late st Contact Info) Description 12/04/2025 2:00 PM EST Telemedicine [facility] [address] [place] [address] 835 [place] [address] Chiki Ferro MD [address] [place] [address] [id number] [place] [address] MARY@[email or web address] maria del rosario 01/21/2026 12:00 PM EST Telemedicine [facility] [place] [address] [place] [address] Ana Vallejo MD [address] [place] [address] [email or web address] documented as of this encounter Visit Diagnoses Diagnosis Traumatic brain injury with loss of consciousness, sequela documented in this encounter Care Teams Church Musician Relationship Specialty Start Date End Date Martir Espino PA [address] [place] [address] PCP - General 12/29/18 Luis Farah MD, DDS [address] [place] [address] [email or web address] industrial specialist 11/06/21 Lissy Harris DMD [address] [place] [phone] PURVI@[email or web address] Dentist Dental Sketcher 06/08/22 documented as of this encounter Additional Source Comments The information contained in this document represents components of the legal health record. It is not the complete legal health record.[facility]
--- OUTSIDE RECORDS SUMMARY | 2025-09-16 12:34 | XMS_ITS | Encounter Summary ---
Author Organization [facility] Address [address] [address] Phone Care Team Providers Care Reconciliation Accountant Name Role Phone Martir Espino Primary Care Provider + Luis Farah MD, DDS Unavailable [phone] [phone] Lissy Harris DMD Unavailable Encounter Details Date Type Department Care Team (Late Contact Info) Description 10/08/2022 Procedure Pass [facility] [address] [place] [phone] Social History Tobacco Use Types Packs/Day Years [...] Upcoming Encounters Date Type Department Care Team ([facility] Contact Info) Description 12/04/2025 2:00 PM EST Telemedicine [facility] [address] [place] [address] [address] [place] [address] Chiki Ferro MD 55 [facility] [id number] [place] [address] [email or web address] [place]. maria del rosario 01/21/2026 12:00 PM EST Telemedicine [facility] [place] [place] [address] [place] [address] Ana Vallejo MD [address] [place] [address] [email or web address] documented as of this encounter Visit Diagnoses Not on filedocumented in this encounter Care Teams Reconciliation Accountant Relationship Specialty Start Date End Date Martir Espino PA [address] [place] [address] PCP - General 12/29/18 Luis Farah MD, DDS 55 [facility] WRN-1201 [place] [address] [email or web address] clarifier operator helper 11/06/21 Lissy Harris, JAROCHO [address] [facility] [address] [place] [address] [email or web address].[place].[facility] Dentist Dental Futures Trader 06/08/22 documented as of this encounter Additional Source Comments The information contained in this document represents components of the legal health record. It is not the complete legal health record.[facility]
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
[2025-09-25] VITALS (10 sets, daily range): BP systolic 112–153; BP diastolic 69–102; PULSE 80–93; RESP 16; TEMP 36.8–37.3; O2SAT 93–98; BMI 37.1
--- NOTE | 2025-09-25 08:45 | MHC.SHP ---
Pre-Procedural Eval Section A - 24 Hr Update-Section A only Date of Service: 09/25/25 The patient is an INPATIENT: No Changes since office visit: Yes Patient answered all questions; No Cold of Flu in the past 2 weeks, No New Medical Problems and No Changes in Medication The patient has been examined within 24 hours of the surgical procedure. The History & Physical has been completed within 30 days and I have reviewed it.: Yes Section B - Complete if H&P > 30 days Chief Complaint: Gastrostomy malfunction Allergies: Allergies Allergy/AdvReac Type Severity Reaction Status Date / Time latex (LATEX) Allergy Intermediate HIVES Verified 09/17/25 15:13 strawberry (STRAWBERRY) Allergy Intermediate HIVES Verified 09/17/25 15:13 Plan Diagnosis/Plan: Unchanged I have reviewed the history and physical and performed a pertinent physical examination on my patient. No changes have occurred unless specified. Time Spent With Patient Time: Total time managing care of this patient today ____ minutes.
[2025-09-25] MEDS: Albuterol Sulfate (0.083%) 2.5 MG/3 ML VIAL.NEB INHALE (08:57)
[2025-09-25] MEDS: Lactated Ringers 1,000 ML 100 ML IVCONT (08:58)
--- NOTE | 2025-09-25 09:39 | P.OP_ITS ---
Operative Note Operative Note Date of Service: 09/25/25 Narrative: Preoperative diagnosis: Gastrostomy tube displacement Postoperative diagnosis: Same Procedure: Dilation of gastrostomy tube site with replacement of gastrostomy tube Surgeon: Souleymane Roberts MD Launch Commander [employer]: None Anesthesia: Mac Indications for procedure: 35-year-old male patient with a history of TBI on chronic tube feeding via G-tube. Patient undergoes regular G-tube replacement however the most recent attempt the tract was found to have decreased in size and new to could not be replaced. He presents today for tract dilation and placement of an 18 Togolese gastrostomy tube. Operative findings: Stenotic gastrostomy tube site dilated to 18 Togolese Specimen: None Estimated blood loss: None Complications: None Procedure details: Patient was brought to the OR and kept on the stretcher. After administering light sedation the patient's abdomen was prepped with Betadine and draped in a sterile fashion. A surgical time-out was called the consent confirmed. Patient received preoperative antibiotics. Local anesthesia consisting of 0.5% Sensorcaine was infiltrated circumferentially around the gastrostomy tube site. The previous gastrostomy tube was removed and a Hegar dilator used to dilate up the tract up to an 18 Togolese size. Attempts to go higher were unsuccessful due to the stenotic opening. After dilating to 18, an 18 Togolese gastrostomy tube was easily inserted. The wound was dilated with 10 mL of sterile water. The tube was irrigated and gastric contents identified. Sterile dressings were then applied. The patient tolerated the procedure well and was transferred to PACU in stable condition. Sponge, instrument, and needle counts reported as correct.
== END 2025-09-25 11:40 | disposition home or self-care (01) ==
PROVIDERS: PCP Physician Assistant; Visit Provider Surgery
PROC: (CPT 43762; principal; 2025-09-25 09:10)
DX: K94.23 Gastrostomy malfunction (principal); Z87.820 Personal history of traumatic brain injury; G82.50 Quadriplegia, unspecified; N31.9 Neuromuscular dysfunction of bladder, unspecified; Z86.711 Personal history of pulmonary embolism; J45.909 Unspecified asthma, uncomplicated; Z87.01 Personal history of pneumonia (recurrent); Z79.01 Long term (current) use of anticoagulants; Z79.899 Other long term (current) drug therapy; Z99.3 Dependence on wheelchair; Z91.040 Latex allergy status; Z98.890 Other specified postprocedural states; Z87.891 Personal history of nicotine dependence
CPT/HCPCS: 43763; J0690; J2003; J2405; J2704; J2765; J3010

== ENCOUNTER → 2025-09-25 07:08 | Outpatient (BNV) | payer OTHER, SELFPAY | PROVIDERS: PCP Physician Assistant; Visit Provider Surgery | DX: K94.03 Colostomy malfunction (principal) | CPT/HCPCS: 43763 ==

== ENCOUNTER 2025-10-31 12:08 | Outpatient (REF) | payer OTHER, SELFPAY ==
[2025-10-31 15:12] LABS: Hematocrit 53.9 % (42.0-52.0); Hemoglobin 18.1 g/dl (14.0-18.0); Imm Gran Abs Auto 0.01 X10*3/uL (0.00-0.03); Imm Gran Pct Auto 0.2 % (0.0-0.4); Lymphocytes Absolute Auto 1.6 X10*3/uL (1.2-4.9); Mean Corpuscular HGB Conc 33.6 g/dl (31.0-36.0); Mean Corpuscular Hemoglobin 33.3 pg (27.0-33.0); Mean Corpuscular Volume 99.3 fL (80.0-98.0); NRBC Abs Auto 0.000 X10*3/uL (0.0-0.012); NRBC Pct Auto 0.0 /100WBC (0.0-0.2); Platelet Count 69 X10*3/uL (160-400); Red Blood Count 5.43 X10*6/uL (4.60-5.80); White Blood Count 5.7 X10*3/uL (4.8-10.8)
[2025-10-31 15:44] LABS: MANUAL DIFF FLAG NO
[2025-10-31 16:04] LABS: Alanine Aminotransferase 72 U/L (0-40); Albumin Level 4.5 g/dL (3.5-5.0); Alkaline Phosphatase 131 U/L (39-117); Anion Gap 12 (12-20); Aspartate Amino Transferase 113 U/L (5-37); Blood Urea Nitrogen 10 mg/dL (9-16); Calcium 10.3 mg/dL (8.4-10.2); Carbon Dioxide 28 mmol/L (22-29); Chloride 102 mmol/L (96-108); Estimated Glomerular Filt Rate > 60; Potassium 4.0 mmol/L (3.3-5.1); Sodium 138 mmol/L (135-145); Total Protein 8.2 g/dL (6.5-8.0)
== END 2025-10-31 12:09 ==
LOC: HO.LAB 12:08
PROVIDERS: PCP Physician Assistant; Visit Provider Physician Assistant
DX: I26.99 Other pulmonary embolism without acute cor pulmonale (principal); D69.6 Thrombocytopenia, unspecified; R74.8 Abnormal levels of other serum enzymes
CPT/HCPCS: 36415; 80053; 82248; 85025; 85027